=== PATIENT | male | born 1935 | race Caucasian/White ===

== ENCOUNTER 2018-04-19 08:12 | Inpatient (IN) | payer OTHER ==
--- OUTSIDE RECORDS SUMMARY | 2018-04-19 08:14 | XMS REPORT | Clinical Summary ---
:1935 Author Organization [facility] Address [address] [place] [address] Care Team Providers Name Role Phone Asked, No Pcp Primary Care Provider Unavailable Allergies No Known Allergies Current Medications Prescription Sig. Disp. Refills Start Date End Date Status omeprazole (PriLOSEC) 40 Take 40 mg by Active MG capsule mouth 2 (two) times a day. ranitidine (ZANTAC) 150 MG Take 150 mg by Active tablet mouth 2 (two) times a day. levothyroxine (SYNTHROID, Take 125 mcg by Active LEVOXYL) 125 mcg tablet mouth every morning. travoprost (TRAVATAN-Z) 1 drop nightly. Active 0.004 % mirtazapine (REMERON) 15 Take 15 mg by Active MG tablet mouth nightly. Active Problems Problem Noted Date Status post gastric bypass surgery 11/13/2016 Status post gastric bypass revision surgery 11/13/2016 GERD (gastroesophageal reflux disease) 11/13/2016 Pharyngoesophageal dysphagia 11/13/2016 Status post laparoscopic fundoplication 11/13/2016 Family History Medical History Relation Name Comments GI problems Father No Known Problems Maternal Grandfather No Known Problems Maternal Grandmother Breast cancer Mother No Known Problems Paternal Grandfather No Known Problems Paternal Grandmother COPD Sister Relation Name Status Comments Father Maternal Grandfather Maternal Grandmother Mother Paternal Grandfather Paternal Grandmother Sister Alive Sister Son Alive Social History Tobacco Use Types Packs/Day Years Used Date Former Smoker 0.33 7 Alcohol Use Drinks/Week oz/Week Comments No Sex Assigned at Date Recorded Not on file Last Filed Vital Signs Not on file Plan of Treatment Health Maintenance Due Date Last Done Comments SHINGRIX VACCINE (#1) 1983 ZOSTER VACCINE 1993 PNEUMOCOCCAL POLYSACCHARIDE VACCINE AGE 65 AND OVER 1998 PNEUMOCOCCAL-13 1998 INFLUENZA VACCINE 01/28/2018 Results Not on fileafter 04/18/2017 Insurance Payer Benefit Plan / Group Subscriber ID Type Phone Address MEDICARE MEDICARE PART A AND B xxxxxxxxxx Medicare [place], [place] AETNA AETNA PPO OPEN CHOICE xxxxxxxxx PPO
[2018-04-19] MEDS ORDERED: ACETAMINOPHEN 500 MG TAB ONE (08:37)
[2018-04-19] MEDS ORDERED: METOCLOPRAMIDE 10 MG/2mL INJ ONE (08:37)
[2018-04-19] MEDS ORDERED: NA CHLORIDE 0.9% 1,000 ML ONE (08:38)
[2018-04-19 08:42] LABS: Absolute Lymphocytes (CBC) 0.4 K/uL (0.7-4.9); Absolute Monocytes 0.6 K/uL (0.1-1.3); Absolute Neutrophil 16.9 K/uL (1.8-8.0); Basophils % 0.1 % (0-1.3); Eosinophils % 0.1 % (0-4.4); Hematocrit 44.4 % (39.6-49.0); Lymphocytes % 2.3 % (15.3-44.8); MCV 99.2 fL (80-100); MPV 8.2 fL (7.6-11.3); Monocytes % 3.2 % (3.3-12.3); RBC Red Blood Cell Count 4.48 M/uL (4.33-5.43)
[2018-04-19] MEDS ORDERED: CEFTRIAXONE/SWI 1gm 1 GM/10 ML SYR ONE (09:06)
[2018-04-19] MEDS ORDERED: IBUPROFEN 200 MG TAB PO ONE (09:39)
[2018-04-19] MEDS ORDERED: IBUPROFEN 400 MG TAB ONE (09:39)
[2018-04-19 09:48] LABS: Urine Blood NEGATIVE (NEG); Urine Glucose NEGATIVE (NEG); Urine Protein NEGATIVE (NEG); Urine pH >8.5 (5.0-7.0)
[2018-04-19 10:01] LABS: Blood Morphology Comment NOT SEEN (NOT SEEN); Platelet Estimate ADEQ; Urine White Blood Cell Casts OK
--- NOTE | 2018-04-19 10:38 | EDPHYS ---
Physician Documentation [facility] Name: Abhay Morocho Age: 82 yrs Sex: Male : 1935 Arrival Date: 04/19/2018 Time: 08:16 Bed 19 Private MD: ED Physician Cody Loya HPI: 04/19 08:29 This 82 yrs old Male presents to ER via EMS with complaints of generalized kdr body aches and vomiting. 08:29 The patient states that he awoke about 5:30 this morning and was feel pain all over and kdr then vomited five time. He presently feels pain all over and is unable to localize. He states that his mouth feels dry and has no other c/o. He has not had this before and had no other prodromal issues. His only other c/o is sinus drainage and non-productive cough. Onset: The symptoms/episode began/occurred suddenly, just prior to arrival, this morning, at 05:30. Severity of symptoms: At their worst the symptoms were moderate in the emergency department the symptoms are unchanged. The patient has not experienced similar symptoms in the past. The patient has not recently seen a physician. Historical: - Allergies: 08:30 unknown nausea medication "starts with Z" causes severe constipation; ss - Home Meds: 14:57 Prilosec Oral [Active]; levothyroxine oral [Active]; em 14:58 Zantac Oral [Active]; em - PMHx: 08:22 GERD; Thyroid problem; em - PSHx: 08:22 Gastric Bypass; back surgery; em - Immunization history:: Pneumococcal vaccine is not up to date. - Social history:: Smoking status: Patient/guardian denies using tobacco. - Ebola Screening: : Patient negative for fever greater than or equal to 101.5 degrees Fahrenheit, and additional compatible Ebola Virus Disease symptoms Patient denies exposure to infectious person Patient denies travel to an Ebola-affected area in the 21 days before illness onset No symptoms or risks identified at this time. ROS: 08:29 Constitutional: Negative for chills, and weight loss - has had subjective fever [employer]ER. kdr He has otherwise had generalized body aches. Eyes: Negative for injury, pain, redness, and discharge, Neck: Negative for injury, pain, and swelling, Cardiovascular: Negative for chest pain, palpitations, and edema, Abdomen/GI: Negative for abdominal pain, nausea, vomiting, diarrhea, and constipation, Back: Negative for injury and pain, : Negative for injury, bleeding, discharge, and swelling, MS/Extremity: Negative for injury and deformity, Skin: Negative for injury, rash, and discoloration, Neuro: Negative for headache, weakness, numbness, tingling, and seizure activity. Psych: Negative for depression, anxiety, suicide ideation, homicidal ideation, and hallucinations, Allergy/Immunology: Negative for hives, rash, and allergies, Endocrine: Negative for neck swelling, polydipsia, polyuria, polyphagia, and marked weight changes, Hematologic/Lymphatic: Negative for swollen nodes, abnormal bleeding, and unusual bruising. 08:29 Respiratory: Positive for cough, with no reported sputum, Negative for dyspnea on exertion, hemoptysis, orthopnea, pleurisy, shortness of breath, sputum production, wheezing. Exam: 08:29 Constitutional: This is a well developed, well nourished patient who is awake, alert, kdr and in mild distress. Head/Face: Normocephalic, atraumatic. Eyes: Pupils equal round and reactive to light, extra-ocular motions intact. Lids and lashes normal. Conjunctiva and sclera are non-icteric and not injected. Cornea within normal limits. Periorbital areas with no swelling, redness, or edema. ENT: Nares patent. No nasal discharge, no septal abnormalities noted. Tympanic membranes are normal and external auditory canals are clear. Oropharynx with no redness, swelling, or masses, exudates, or evidence of obstruction, uvula midline. Mucous membranes moist. Neck: Trachea midline, no thyromegaly or masses palpated, and no cervical lymphadenopathy. Supple, full range of motion without nuchal rigidity, or vertebral point tenderness. No Meningismus. Chest/axilla: Normal chest wall appearance and motion. Nontender with no deformity. No lesions are appreciated. Vital Signs: 08:22 BP 132 / 68; Pulse 105; Resp 19; Temp 102(O); Pulse Ox 99% on R/A; Weight 67.13 kg; em Height 5 ft. 9 in. (175.26 cm); Pain 7/10; 09:14 BP 131 / 67; Pulse 101; Resp 20; Temp 99.4(O); Pulse Ox 99% on R/A; em 10:00 BP 112 / 62; Pulse 96; Resp 18; Pulse Ox 97% on R/A; em 11:04 BP 111 / 63; Pulse 88; Resp 16; Pulse Ox 97% on R/A; Pain 2/10; em 12:00 BP 99 / 47; Pulse 100; Resp 23; Pulse Ox 97% on R/A; dh3 12:59 Temp 98.0(O); dh3 13:00 BP 102 / 57; Pulse 91; Resp 27; Pulse Ox 99% on R/A; dh3 14:00 BP 99 / 59; Pulse 91; Resp 24; Pulse Ox 100% on R/A; em 14:53 BP 101 / 57; Pulse 83; Resp 20; Pulse Ox 100% on R/A; Pain 0/10; em 08:22 Body Mass Index 21.86 (67.13 kg, 175.26 cm) em MDM: 10:37 Patient medically screened. kdr 11:15 Data reviewed: vital signs, nurses notes, lab test result(s), radiologic studies. kdr Counseling: I had a detailed discussion with the patient and/or guardian regarding: the historical points, exam findings, and any diagnostic results supporting the discharge/admit diagnosis, lab results, radiology results. 04/19 08:27 Order name: CBC with Diff; Complete Time: 10:17 kdr 04/19 08:27 Order name: Chem 7; Complete Time: 08:57 kdr 04/19 08:27 Order name: Urine Culture kdr 04/19 08:27 Order name: Blood Culture Adult (2) kdr 04/19 08:27 Order name: Procalcitonin; Complete Time: 09:17 kdr 04/19 08:27 Order name: Lactate; Complete Time: 09:17 kdr 04/19 08:29 Order name: Flu; Complete Time: 09:17 kdr 04/19 08:56 Order name: CBC Smear Scan; Complete Time: 10:17 EDMS 04/19 09:33 Order name: Urine Dipstick--Ancillary (enter results); Complete Time: 10:17 bd 04/19 11:18 Order name: CBC with Automated Diff EDMS 04/19 11:18 Order name: CBC with Automated Diff EDMS 04/19 11:18 Order name: CBC with Automated Diff EDMS 04/19 11:18 Order name: CBC with Automated Diff EDMS 04/19 11:18 Order name: Comprehensive Metabolic Panel EDMI 04/19 08:27 Order name: Urine Dipstick-Ancillary (obtain specimen); Complete Time: 09:17 kdr 04/19 08:27 Order name: CXR XRAY; Complete Time: 11:13 kdr 04/19 11:18 Order name: Heart Healthy EDMI 04/19 11:18 Order name: Comprehensive Metabolic Panel EDMI 04/19 11:18 Order name: Comprehensive Metabolic Panel EDMI 04/19 11:18 Order name: Comprehensive Metabolic Panel EDMI 04/19 11:18 Order name: Sputum Culture EDMS Administered Medications: 08:36 Drug: NS 0.9% 500 ml Route: IV; Rate: bolus; Site: left forearm; em 13:00 Follow up: IV Status: Completed infusion; IV Intake: 1000ml em 08:37 Drug: Tylenol 1000 mg Route: PO; em 09:13 Follow up: Response: No adverse reaction; Temperature is decreased em 09:16 Drug: Rocephin - (cefTRIAXone) 1 grams Route: IVPB; Infused Over: 30 mins; Site: left ss forearm; 09:30 Follow up: Response: No adverse reaction; IV Status: Completed infusion; IV Intake: 10mlem 09:35 Drug: Ibuprofen 600 mg Route: PO; em 10:53 Follow up: Response: No adverse reaction; Pain is decreased em 11:00 Not Given (Patient Refused): Reglan 10 mg IVP once; over 1 to 2 minutes ss Disposition: 04/19/18 10:37 Hospitalization ordered by Nuno Dao for Observation. Preliminary diagnosis is Pneumonia, unspecified organism. - Bed requested for Telemetry/MedSurg (observation). - Status is Observation. em - Condition is Fair. - Problem is new. - Symptoms have improved. UTI on Admission? No Signatures: Dispatcher [employer] EDMS Stephanie Moser bd Cody Loya MD MD [facility] [employer] em Lauren Finn, RN RN ss Corrections: (The following items were deleted from the chart) 14:34 10:37 Hospitalization Ordered by Nuno Dao MD for Observation. Preliminary diagnosis bd is Pneumonia, unspecified organism. Bed requested for Telemetry/MedSurg (observation). Status is Observation. Condition is Fair. Problem is new. Symptoms have improved. UTI on Admission? No. kdr 15:17 14:34 04/19/2018 10:37 Hospitalization Ordered by Nuno Dao MD for Observation. em Preliminary diagnosis is Pneumonia, unspecified organism. Bed requested for Telemetry/MedSurg (observation). Status is Observation. Condition is Fair. Problem is new. Symptoms have improved. UTI on Admission? No. bd
--- NOTE | 2018-04-19 10:38 | ER ---
Nurse's Notes [facility] Name: Abhay Morocho Age: 82 yrs Sex: Male : 1935 Arrival Date: 04/19/2018 Time: 08:16 Bed 19 Private MD: Diagnosis: Pneumonia, unspecified organism Presentation: 04/19 08:18 Presenting complaint: EMS states: called out for nausea/vomiting/body aches since 0500, em had 101.4 temp on arrival, denies chest pain, shortness of breath. Transition of care: patient was not received from another setting of care. Onset of symptoms was April 19, 2018. Risk Assessment: Do you want to hurt yourself or someone else? Patient reports no desire to harm self or others. Initial Sepsis Screen: Does the patient meet any 2 criteria? Temp <36.0*C (96.8*F)) or > 38.3*C (100.9*F). Does the patient have a suspected source of infection? No. Patient's initial sepsis screen is negative. Care prior to arrival: None. 08:18 Method Of Arrival: EMS: [facility] em 08:18 Acuity: ALMAS 3 ss Triage Assessment: 08:22 General: Appears in no apparent distress. comfortable, Behavior is calm, cooperative, em Reports fever for. Pain: Complains of pain in "all over". Historical: - Allergies: 08:30 unknown nausea medication "starts with Z" causes severe constipation; ss - Home Meds: 14:57 Prilosec Oral [Active]; levothyroxine oral [Active]; em 14:58 Zantac Oral [Active]; em - PMHx: 08:22 GERD; Thyroid problem; em - PSHx: 08:22 Gastric Bypass; back surgery; em - Immunization history:: Pneumococcal vaccine is not up to date. - Social history:: Smoking status: Patient/guardian denies using tobacco. - Ebola Screening: : Patient negative for fever greater than or equal to 101.5 degrees Fahrenheit, and additional compatible Ebola Virus Disease symptoms Patient denies exposure to infectious person Patient denies travel to an Ebola-affected area in the 21 days before illness onset No symptoms or risks identified at this time. Screenin:24 Abuse screen: Denies threats or abuse. Nutritional screening: No deficits noted. em Tuberculosis screening: No symptoms or risk factors identified. Fall Risk None identified. Assessment: 08:22 General: Appears in no apparent distress. comfortable, Behavior is calm, cooperative, em Reports fever for feeling ill for. Pain: Complains of pain in "all over, body aches" Pain currently is 7 out of 10 on a pain scale. Neuro: Level of Consciousness is awake, alert, obeys commands, Oriented to person, place, time, situation. Cardiovascular: Denies chest pain, shortness of breath, Heart tones S1 S2 present Capillary refill < 3 seconds Patient's skin is warm and dry. Respiratory: Airway is patent Respiratory effort is even, unlabored, Respiratory pattern is regular, symmetrical, Breath sounds are clear bilaterally. Denies cough, shortness of breath. GI: Abdomen is flat, Bowel sounds present X 4 quads. Abd is soft and non tender X 4 quads. Reports nausea, vomiting. : No signs and/or symptoms were reported regarding the genitourinary system. EENT: No signs and/or symptoms were reported regarding the EENT system. Derm: Skin is intact, is thin, Skin is pink, warm \\T\\ dry. Musculoskeletal: Capillary refill < 3 seconds, Range of motion: intact in all extremities. 08:30 General: The previous assessment is accurate, call light remains within reach. . ss 08:37 Reassessment: pt currently refuses nausea medication, states it will make him em constipated, provider notified, will hold medication. 09:30 Reassessment: Patient appears in no apparent distress at this time. Patient and/or em family updated on plan of care and expected duration. Pain level reassessed. Patient is alert, oriented x 3, equal unlabored respirations, skin warm/dry/pink. reports mild headache that comes and goes, provider notified, new medications ordered. 10:44 Reassessment: Patient appears in no apparent distress at this time. Patient and/or em family updated on plan of care and expected duration. Pain level reassessed. Patient is alert, oriented x 3, equal unlabored respirations, skin warm/dry/pink. Patient states feeling better. Patient states symptoms have improved. 11:30 Reassessment: Patient and/or family updated on plan of care and expected duration. Pain em level reassessed. Patient is alert, oriented x 3, equal unlabored respirations, skin warm/dry/pink. lunch tray given, pt tolerated well. 12:30 Reassessment: Patient appears in no apparent distress at this time. Patient and/or em family updated on plan of care and expected duration. Pain level reassessed. Patient is alert, oriented x 3, equal unlabored respirations, skin warm/dry/pink. 13:45 Reassessment: Patient appears in no apparent distress at this time. Patient and/or em family updated on plan of care and expected duration. Pain level reassessed. Patient is alert, oriented x 3, equal unlabored respirations, skin warm/dry/pink. pending room assignment Patient states feeling better. Patient states symptoms have improved. 14:48 Reassessment: Patient appears in no apparent distress at this time. Patient and/or em family updated on plan of care and expected duration. Pain level reassessed. Patient is alert, oriented x 3, equal unlabored respirations, skin warm/dry/pink. Patient denies pain at this time. Patient states feeling better. Patient states symptoms have improved. Vital Signs: 08:22 BP 132 / 68; Pulse 105; Resp 19; Temp 102(O); Pulse Ox 99% on R/A; Weight 67.13 kg; em Height 5 ft. 9 in. (175.26 cm); Pain 7/10; 09:14 BP 131 / 67; Pulse 101; Resp 20; Temp 99.4(O); Pulse Ox 99% on R/A; em 10:00 BP 112 / 62; Pulse 96; Resp 18; Pulse Ox 97% on R/A; em 11:04 BP 111 / 63; Pulse 88; Resp 16; Pulse Ox 97% on R/A; Pain 2/10; em 12:00 BP 99 / 47; Pulse 100; Resp 23; Pulse Ox 97% on R/A; dh3 12:59 Temp 98.0(O); dh3 13:00 BP 102 / 57; Pulse 91; Resp 27; Pulse Ox 99% on R/A; dh3 14:00 BP 99 / 59; Pulse 91; Resp 24; Pulse Ox 100% on R/A; em 14:53 BP 101 / 57; Pulse 83; Resp 20; Pulse Ox 100% on R/A; Pain 0/10; em 08:22 Body Mass Index 21.86 (67.13 kg, 175.26 cm) em ED Course: 08:16 Patient arrived in ED. rb1 08:16 Ck [facility] is Primary Nurse. em 08:16 Cody Loya MD is Attending Physician. kdr 08:22 Arm band placed on. em 08:24 Placed in gown. Bed in low position. Call light in reach. em 08:24 No provider procedures requiring assistance completed. Inserted saline lock: 22 gauge em in left forearm, using aseptic technique. Blood collected. 08:35 Triage completed. ss 08:44 X-ray completed. Portable x-ray completed in exam room. Patient tolerated procedure tm4 well. 08:45 CXR XRAY In Process Unspecified. EDMS 10:36 Nuno Dao MD is Hospitalizing Provider. kdr 15:14 Patient admitted, IV remains in place. em Administered Medications: 08:36 Drug: NS 0.9% 500 ml Route: IV; Rate: bolus; Site: left forearm; em 13:00 Follow up: IV Status: Completed infusion; IV Intake: 1000ml em 08:37 Drug: Tylenol 1000 mg Route: PO; em 09:13 Follow up: Response: No adverse reaction; Temperature is decreased em 09:16 Drug: Rocephin - (cefTRIAXone) 1 grams Route: IVPB; Infused Over: 30 mins; Site: left ss forearm; 09:30 Follow up: Response: No adverse reaction; IV Status: Completed infusion; IV Intake: 10mlem 09:35 Drug: Ibuprofen 600 mg Route: PO; em 10:53 Follow up: Response: No adverse reaction; Pain is decreased em 11:00 Not Given (Patient Refused): Reglan 10 mg IVP once; over 1 to 2 minutes ss Intake: 09:30 IV: 10ml; Total: 10ml. em 13:00 IV: 1000ml; Total: 1010ml. em Outcome: 10:37 Decision to Hospitalize by Provider. kdr 15:14 Admitted to Tele accompanied by tech, via wheelchair, room 429, with chart, Report em called to HIMANSHU Goodman 15:14 Condition: good 15:14 Instructed on the need for admit, Demonstrated understanding of instructions. 15:17 Patient left the ED. em Signatures: Dispatcher [employer] EDMS Cody Loya MD MD kdr Renetta Obregon tm4 Ck [employer] em Lauren Finn, RN RN ss Natasha Hernandez, RN RN rb1 Radha Lam 3
--- NOTE | 2018-04-19 10:51 | RAD REPORT ---
EXAM DESCRIPTION: RAD - Chest Single View - 04/19/2018 8:45 am CLINICAL HISTORY: Cough, fever COMPARISON: December 2014 TECHNIQUE: AP portable chest image was obtained 0838 hours . FINDINGS: No dense consolidation. However, there is patchy right upper lobe opacification suspicious for an early pneumonia. Mild prominence of the bilateral lower lung markings as well from interstiti al edema or infiltrate. Heart and vasculature are normal. No measurable pleural effusion and no pneum othorax. No acute bony abnormality seen. No acute aortic findings suspected. IMPRESSION: Suspected patchy or early right upper lobe pneumonia. Mild interstitial edema or infiltrate pattern in each lung base.
[2018-04-19] MEDS ORDERED: ACETAMINOPHEN 500 MG TAB PO PRN (11:12)
[2018-04-19] MEDS ORDERED: ONDANSETRON 4 MG/2 ML VIAL IV PRN (11:12)
[2018-04-19] MEDS: AZITHROMYCIN IV 500 MG in NA CHLORIDE 0.9% 250 ML IVPB SCH (13:00)
[2018-04-19] MEDS: ENOXAPARIN 40 MG/0.4 ML SQ SCH (16:12)
[2018-04-19] MEDS: NA CHLORIDE 0.9% 1,000 ML IV SCH (16:14)
[2018-04-19] MEDS: CEFTRIAXONE/SWI 1gm 1 GM/10 ML SYR IVP SCH (20:28)
[2018-04-19] MEDS ORDERED: CEFTRIAXONE 1 GM/NS 50 ML 50 ML IV SCH (21:00)
[2018-04-19] MEDS ORDERED: RANITIDINE 150 MG TABLET ONE ×2 (22:33→22:58)
[2018-04-19] MEDS: PANTOPRAZOLE 40MG TABLET PO SCH (22:39)
[2018-04-19] MEDS ORDERED: FAMOTIDINE 20 MG TAB PO SCH (23:00)
--- NOTE | 2018-04-19 23:48 | HP ---
Date of Admission: 04/19/2018 Chief Complaint: Shortness of breath, nausea, vomiting, dehydration. Code Status: Full code. No medical power of corporate attorney or living will. Primary Care Physician: Davi Hdez MD History Of Present Illness: The patient is an 82-year-old male with past medical history of gastric bypass surgery, gastroesophageal reflux disease, and hypothyroidism, who was in his usual state of he alth until the day of admission when the patient had pain all over and had some nausea and vomiting. The patient had some shortness of breath and cough, which was nonproductive. The patient's symptoms are constant, moderate, progressively worsening. The patient therefore came into the ER for further evaluation. He denies any fevers or chills. No chest pain. The patient's vital signs upon arrival did show temperature of 102, heart rate was elevated at 105. His lab workup showed negative lactate and procalcitonin level; however, WBC count was elevated at 17,000 with left shift. Chest x-ray dee wed patchy early right lobe pneumonia and edema or infiltrate pattern in each lung base. The patient was then referred for admission. When seen in the ER, he was awake, alert, and oriented x3. Some m ild distress. Past Medical History: Hypothyroidism and gastroesophageal reflux disease. Surgical History: Gastric bypass and revision, total of 4 surgeries and back surgery. Allergies: NO KNOWN DRUG ALLERGIES. Medications: List reviewed. The patient takes Prilosec, Zantac, and levothyroxine. Social History: The patient denies any tobacco use, alcohol use, or illicit drug use. The patient l mary jo by himself. Independent in his activities of daily living. Does not use any assistive ambulato ry devices. Family History: The patient denies any family history of hypertension or diabetes. Review of Systems: An 11-point system reviewed and negative except as per HPI. Physical Examination: Vital Signs: Temperature 102, heart rate 105, blood pressure 132/68, respirations 19, O2 99% on room air. General: Awake, alert, oriented x3. Some mild distress, ill-appearing, elderly male. HEENT: Normocephalic, atraumatic. PERRLA. EOMI. Dry mucous membranes. Oropharynx is clear. Norm al dentition. Conjunctivae anicteric. Neck: Supple. No JVD. Trachea midline. CV: S1, S2. Sinus tachycardia. Peripheral pulses present. No murmurs. Respiratory: Diminished breath sounds at the bases. No wheezing or stridor. No use of accessory mu scles. Gastrointestinal: Abdomen is soft, nontender, nondistended. Positive bowel sounds. No guarding or rigidity. Extremities: No clubbing, cyanosis, or edema. No calf tenderness. Neuro: Cranial nerves 2 through 12 intact grossly. No focal neurological deficit. Speech is normal . Strength is 5/5 bilateral upper and lower extremities. Sensation intact to light touch. Skin: No rashes. Normal skin turgor. Psych: Mood is okay. Affect is full. Insight and judgment are good. Laboratory Data: WBC 17.9, H and H 15.2 and 44.4, platelets 219, neutrophils 94%. Sodium 140, potas sium 4, chloride 106, CO2 26, BUN 14, creatinine 1.1, glucose 139, lactate 1.6, calcium 8.8. Procalc itonin less than 0.05. UA is negative. Blood cultures pending. Flu screen is negative. Chest x-ra y shows suspected patchy or early right upper lobe pneumonia. Mild interstitial edema or infiltrate pattern in each lung base. Assessment And Plan: An 82-year-old male with. 1.Right-sided pneumonia, upper lobe, may be secondary to aspiration or gram-negative bacteria. We w ill start on IV antibiotics. We will add anaerobic coverage. We will have Speech Therapy evaluation to rule out any aspiration. No overt signs as for now. 2.Hypothyroidism, on replacement therapy. 3.Status post gastric bypass. 4.Gastroesophageal reflux disease, on proton pump inhibitors. 5.Chronic back pain, status post surgery. 6.Gastrointestinal and deep vein thrombosis prophylaxis with proton pump inhibitors and Lovenox. Plan: 1.Admit the patient to Med-Surg, place as in inpatient. We will continue with IV antibiotics. Foll ow up with speech therapy evaluation. 2.Acute dehydration. Continue with IV fluids. 3.Follow up on blood cultures and sputum cultures. Likely discharge in the next 24 to 48 hours if c ontinues to improve. /VENECIA Voice ID: [id number]
[2018-04-20] MEDS: NA CHLORIDE 0.9% 1,000 ML IV SCH ×2 (01:20→06:12)
[2018-04-20 04:42] LABS: Absolute Lymphocytes (CBC) 1.1 K/uL (0.7-4.9); Basophils % 0.9 % (0-1.3); Eosinophils % 0.6 % (0-4.4); Hematocrit 37.8 % (39.6-49.0); MCH 34.3 pg (27.0-35.0); MCV 101.2 fL (80-100); MPV 8.5 fL (7.6-11.3); Monocytes % 5.3 % (3.3-12.3); RBC Red Blood Cell Count 3.73 M/uL (4.33-5.43)
[2018-04-20 05:03] LABS: Albumin 2.6 g/dL (3.4-5.0); Bilirubin Total 0.6 mg/dL (0.2-1.0); Potassium 4.2 mmol/L (3.5-5.1); Protein, Total 5.8 g/dL (6.4-8.2)
[2018-04-20] MEDS: LEVOTHYROXINE SOD 0.125 MG TAB PO SCH (06:12)
[2018-04-20 07:56] LABS: Magnesium 2.1 mg/dL (1.8-2.4)
[2018-04-20] MEDS ORDERED: INFLUENZA VACCINE (for 3y+) 0.5 ML DOSE IMVAC ONE (08:00)
[2018-04-20] MEDS: AZITHROMYCIN IV 500 MG in NA CHLORIDE 0.9% 250 ML IVPB SCH (09:00)
[2018-04-20] MEDS: PANTOPRAZOLE 40MG TABLET PO SCH (09:43)
[2018-04-20] MEDS: CEFTRIAXONE/SWI 1gm 1 GM/10 ML SYR IVP SCH (09:43)
[2018-04-20] MEDS: ENOXAPARIN 40 MG/0.4 ML SQ SCH (09:43)
--- NOTE | 2018-04-20 11:06 | RAD REPORT ---
EXAM DESCRIPTION: RAD - Chest Pa And Lat (2 Views) - 04/20/2018 10:57 am CLINICAL HISTORY: Pneumonia COMPARISON: April 19 TECHNIQUE: PA and lateral views of the chest were obtained. FINDINGS: The lungs are fibrotic as a baseline. Right upper lobe opacification is still present and is slightly larger and more defined than seen on the prior day AP projection. No other focal lung par enchymal process. Heart size is normal and central vasculature is within normal limits. No pleural effusion or pneumothorax seen. No acute bony finding noted. No aortic abnormality. IMPRESSION: Presumed right upper lobe pneumonia changes have progressed slightly from April 19 juliette ging. No significant failure or volume overload. Continued follow-up is needed to assure complete clearing to exclude mass lesion.
--- NOTE | 2018-04-20 13:19 | PN ---
Date of Progress Note: 04/20/2018 Subjective: The patient seen and examined, chart reviewed, and case discussed with RN. The patient is still having a little bit of shortness of breath, overall better. No further nausea or vomiting. Review of Systems: Negative except as above. Medications: List reviewed. Objective: Vital Signs: Temperature 98.4, heart rate 74, blood pressure 135/72, respirations 18, O2 98% on room air. General: Awake, alert, oriented x3. Elderly male, frail, somewhat ill-appearing. CV: S1, S2. Peripheral pulses present. Regular rate and rhythm. Respiratory: Diminished breath sounds on the right. No wheezing or crackles. No use of accessory m uscles. Gastrointestinal: Abdomen is soft, nontender, nondistended. Positive bowel sounds. Extremities: No clubbing, cyanosis, or edema. Neurologic: Nonfocal. Laboratory Data: Sodium 140, potassium 4.2, chloride 110, CO2 25, BUN 12, creatinine 0.9, glucose 93 , calcium 8, albumin is 2.6. WBC 18.4, H and H 12.8 and 37.8, platelets 163, neutrophils 87%. Blood cultures, no growth to date. Urine culture, no growth. Sputum culture, pending. Chest x-ray perso bethany reviewed shows right upper lobe pneumonia changes, progressed slightly from April 19. No s ignificant failure or volume overload. Lungs fibrotic at baseline. Assessment: An 82-year-old male with: 1.Right-sided pneumonia, upper lobe, possibly secondary to aspiration from gastric contents or gram- negative bacteria. We will continue antibiotics. Add anaerobic coverage. Speech Therapy evaluation pending aspiration precautions. 2.Hypothyroidism. Continue replacement therapy. 3.Status post gastric bypass. 4.Gastroesophageal reflux disease without esophagitis. Continue PPI. 5.Chronic back pain, status post surgery. 6.Gastrointestinal and deep venous thrombosis prophylaxis with PPI and Lovenox. 7.Acute dehydration, resolved. We will DC IV fluids. 8.Intractable nausea and vomiting, resolved. Continue antiemetics and the patient is tolerating his diet. Plan: Follow up on cultures and adjust antibiotics. /VENECIA Voice ID: [id number] Report ID: [id number]
[2018-04-20] MEDS: PIPER/TAZO/NS 3.375gm 3.375 GM/100 ML BAG IVPB SCH (17:00)
[2018-04-20] MEDS: RANITIDINE 150 MG TABLET PO SCH (20:45)
[2018-04-21] MEDS: PIPER/TAZO/NS 3.375gm 3.375 GM/100 ML BAG IVPB SCH ×3 (01:04→16:20)
[2018-04-21 04:29] LABS: Absolute Lymphocytes (CBC) 1.2 K/uL (0.7-4.9); Absolute Neutrophil 7.5 K/uL (1.8-8.0); Basophils % 0.1 % (0-1.3); Eosinophils % 1.5 % (0-4.4); Lymphocytes % 11.7 % (15.3-44.8); MCH 33.9 pg (27.0-35.0); MCV 99.5 fL (80-100); MPV 8.5 fL (7.6-11.3); Monocytes % 10.4 % (3.3-12.3); RBC Red Blood Cell Count 3.92 M/uL (4.33-5.43)
[2018-04-21 04:48] LABS: Albumin 2.6 g/dL (3.4-5.0); Bilirubin Total 0.5 mg/dL (0.2-1.0); Protein, Total 6.1 g/dL (6.4-8.2)
[2018-04-21] MEDS: LEVOTHYROXINE SOD 0.125 MG TAB PO SCH (06:30)
[2018-04-21] MEDS: PANTOPRAZOLE 40MG TABLET PO SCH ×2 (08:24→15:41)
[2018-04-21] MEDS: ENOXAPARIN 40 MG/0.4 ML SQ SCH (08:25)
--- NOTE | 2018-04-21 20:16 | P.PN ---
Subjective Date of Service: 04/21/18 Chief Complaint: Shortness of breath Patient seen and examined at bedside. No family at bedside. Case discussed with nursing staff. Patient reports improved shortness of breath. No nausea or vomiting. Toleration diet. Breathing well on room air. Review of Systems 10-point ROS is otherwise unremarkable Physical Examination - Vital Signs Temperature: 97.8 F Blood Pressure: 132/72 Pulse: 69 Respirations: 18 Pulse Ox (%): 97 - Physical Exam General: Alert, In no apparent distress HEENT: Atraumatic, PERRLA, EOMI Neck: Supple, JVD not distended Respiratory: Clear to auscultation bilaterally, Normal air movement Cardiovascular: Regular rate/rhythm, Normal S1 S2 Gastrointestinal: Normal bowel sounds, No tenderness Musculoskeletal: No tenderness Integumentary: No rashes Neurological: Normal speech, Normal tone, Normal affect Lymphatics: No axilla or inguinal lymphadenopathy - Studies Microbiology Data (last 24 hrs): 04/19/18 09:10 Clean Catch Urine [place] Count - Final <10,000 CFU/ML. 04/19/18 09:10 Clean Catch Urine - Final Assessment And Plan - Plan - Right-sided pneumonia, upper lobe, possibly secondary to aspiration from gastric contents or gram-negative bacteria. We will continue antibiotics. Add anaerobic coverage. Speech Therapy evaluation done. Discussed sleeping with more pillows to help reduce risk of aspiration. - Hypothyroidism. Continue replacement therapy. - Status post gastric bypass. - Gastroesophageal reflux disease without esophagitis. Continue PPI. - Chronic back pain, status post surgery. - Gastrointestinal and deep venous thrombosis prophylaxis with PPI and Lovenox. - Acute dehydration, resolved. We will DC IV fluids. - Intractable nausea and vomiting, resolved. Continue antiemetics and the patient is tolerating his diet. Discharge Plan: Home Plan to discharge in: 24 Hours
[2018-04-21] MEDS: RANITIDINE 150 MG TABLET PO SCH (21:22)
[2018-04-22] MEDS: PIPER/TAZO/NS 3.375gm 3.375 GM/100 ML BAG IVPB SCH ×2 (01:23→09:03)
[2018-04-22 04:39] LABS: Absolute Lymphocytes (CBC) 1.1 K/uL (0.7-4.9); Absolute Monocytes 0.9 K/uL (0.1-1.3); Absolute Neutrophil 7.1 K/uL (1.8-8.0); Basophils % 0.1 % (0-1.3); Eosinophils % 1.9 % (0-4.4); Hematocrit 40.3 % (39.6-49.0); Lymphocytes % 12.2 % (15.3-44.8); MCH 34.3 pg (27.0-35.0); MCV 99.4 fL (80-100); MPV 8.1 fL (7.6-11.3); Monocytes % 9.1 % (3.3-12.3); RBC Red Blood Cell Count 4.05 M/uL (4.33-5.43)
[2018-04-22 05:14] LABS: Albumin 2.6 g/dL (3.4-5.0); Bilirubin Total 0.6 mg/dL (0.2-1.0); Potassium 3.8 mmol/L (3.5-5.1); Protein, Total 6.3 g/dL (6.4-8.2)
[2018-04-22] MEDS: LEVOTHYROXINE SOD 0.125 MG TAB PO SCH (06:26)
[2018-04-22] MEDS ORDERED: POTASSIUM 25 MEQ EFFERV TAB PO ONE (07:30)
[2018-04-22] MEDS: PANTOPRAZOLE 40MG TABLET PO SCH (09:03)
[2018-04-22] MEDS: ENOXAPARIN 40 MG/0.4 ML SQ SCH (09:03)
--- NOTE | 2018-04-22 10:35 | RAD REPORT ---
EXAM DESCRIPTION: [place] Single View04/22/2018 10:28 am CLINICAL HISTORY: Chest pain COMPARISON: April 20, 2018 FINDINGS: Right upper lobe opacity appears mildly diminished in size. No other change is noted. IMPRESSION: Right upper lobe opacity appears mildly diminished in size presumably representing impro ving pneumonia. This should be followed until it is clear to help exclude an underlying mass/postobst ructive process
--- NOTE | 2018-04-22 12:42 | P.DS ---
Admission Date: 04/19/18 Discharge Date: 04/22/18 Disposition: ROUTINE DISCHARGE Discharge Condition: GOOD Reason for Admission: Shortness of breath - Problems (1) Hypothyroid Current Visit: Yes Status: Acute (2) GERD (gastroesophageal reflux disease) Current Visit: Yes Status: Acute (3) Chronic back pain Current Visit: Yes Status: Acute (4) Pneumonia Onset Date: 04/21/18 Current Visit: Yes Status: Acute Brief History of Present Illness: The patient is an 82-year-old male with past medical history of gastric bypass surgery, gastroesophageal reflux disease, and hypothyroidism, who was in his usual state of health until the day of admission when the patient had pain all over and had some nausea and vomiting. The patient had some shortness of breath and cough, which was nonproductive. The patient's symptoms are constant , moderate, progressively worsening. The patient therefore came into the ER for further evaluation. He denies any fevers or chills. No chest pain. The patient's vital signs upon arrival did show temperature of 102, heart rate was elevated at 105. His lab workup showed negative lactate and procalcitonin level ; however, WBC count was elevated at 17,000 with left shift. Chest x-ray showed patchy early right lobe pneumonia and edema or infiltrate pattern in each lung base. The patient was then referred for admission. When seen in the ER, he was awake, alert, and oriented x3. Some mild distress. Hospital Course: Patient was admitted for right-sided pneumonia, fungal. This may have been secondary to aspiration or gram-negative bacteria. Chest x-ray was positive for possible pneumonia, which was clearing up on repeat chest x-ray. The imaging recommended that they follow up with chest x-ray and ordered to rule out any underlying mass/lesion. He was started on IV antibiotics and speech therapy evaluation was done to rule out any aspiration. He was started on IV fluids, blood cultures and sputum cultures were sent. Cultures were negative at 24 hr stay. Aspiration risk reduction was discussed with patient. He remained stable for all his other chronic issues including hypothyroidism, GERD, chronic back pain and his gastric bypass history. At the time of discharge, patient was breathing well on room air, had no complaints of chest pain, abdominal pain, nausea and vomiting. He was tolerating a regular diet without any concerns. She was discharged home on oral Levaquin 500 mg 2 x 7 days and with instructions to follow up with his primary care physician for a repeat chest x-ray to evaluate for any underlying mass/lesion after pneumonia had cleared up. Vital Signs/Physical Exam: Temp Pulse Resp BP Pulse Ox 97.7 F 73 18 118/68 94 04/22/18 12:00 04/22/18 12:00 04/22/18 12:00 04/22/18 12:00 04/22/18 12:00 General: Alert, In no apparent distress HEENT: Atraumatic, PERRLA, EOMI Neck: Supple, JVD not distended Respiratory: Clear to auscultation bilaterally, Normal air movement Cardiovascular: Regular rate/rhythm, Normal S1 S2 Gastrointestinal: Normal bowel sounds, No tenderness Musculoskeletal: No tenderness Integumentary: No rashes Neurological: Normal speech, Normal tone, Normal affect Laboratory Data at Discharge: WBC 9.3 K/uL (4.3-10.9) 04/22/18 04:03 Hgb 13.9 g/dL (13.6-17.9) 04/22/18 04:03 Hct 40.3 % (39.6-49.0) 04/22/18 04:03 Plt Count 199 K/uL (152-406) 04/22/18 04:03 Sodium 141 mmol/L (136-145) 04/22/18 04:03 Potassium 3.8 mmol/L (3.5-5.1) 04/22/18 04:03 BUN 10 mg/dL (7-18) 04/22/18 04:03 Creatinine 1.10 mg/dL (0.55-1.3) 04/22/18 04:03 Glucose 91 mg/dL (74-106) 04/22/18 04:03 Magnesium 2.1 mg/dL (1.8-2.4) 04/20/18 04:05 Total Bilirubin 0.6 mg/dL (0.2-1.0) 04/22/18 04:03 AST 13 U/L (15-37) L 04/22/18 04:03 ALT 15 U/L (12-78) 04/22/18 04:03 Alkaline Phosphatase 66 U/L (45-117) 04/22/18 04:03 Home Medications: Levothyroxine Sodium [Synthroid] 125 mcg PO DAILY 04/19/18 Omeprazole [Prilosec] 40 mg PO BID 04/19/18 Ranitidine HCl [Zantac] 300 mg PO BEDTIME 04/19/18 levoFLOXacin [Levaquin] 500 mg PO DAILY #7 tab 04/22/18 New Medications: levoFLOXacin [Levaquin] 500 mg PO DAILY #7 tab Patient Discharge Instructions: Please follow up with the primary care physician in 1 week for repeat chest x-ray to follow up the pneumonia (your lung infection). Diet: Regular Activity: Ad angella Followup: Davi Hdez MD [ACTIVE - CAN ADMIT] - Time spent managing pt's care (in minutes): 55
== END 2018-04-22 13:51 | disposition home or self-care (01) | DRG 195 ==
LOC: ER 08:12 → ERHOLD 13:46 → 4TH 15:04
PROVIDERS: ADMIT Family Medicine; ATTEND Family Medicine
DX: J18.9 Pneumonia, unspecified organism (principal); E03.9 Hypothyroidism, unspecified; K21.9 Gastro-esophageal reflux disease without esophagitis; G89.29 Other chronic pain; Z98.84 Bariatric surgery status; E86.0 Dehydration; R11.2 Nausea with vomiting, unspecified
CPT/HCPCS: 36415; 71045; 71046; 80048; 80053; 81003; 83605; 83735; 84145; 85025; 87040; 87086; 87088; 87804; 94760; 96361; 96374; 99285; J0456; J0696; J1650; J2543; J2765; J7030

== ENCOUNTER 2019-05-12 08:21 | Emergency (ER) | payer OTHER ==
[2019-05-12] MEDS ORDERED: NA CHLORIDE 0.9% 1,000 ML ONE (08:48)
[2019-05-12] MEDS ORDERED: MECLIZINE HCL 12.5 MG TAB ONE (08:48)
[2019-05-12 09:09] LABS: Absolute Lymphocytes (CBC) 0.8 K/uL (0.7-4.9); Basophils % 0.1 % (0-1.3); Hematocrit 43.3 % (39.6-49.0); Lymphocytes % 12.3 % (15.3-44.8); MPV 8.4 fL (7.6-11.3)
--- NOTE | 2019-05-12 09:11 | EKG ---
Test Date: 2019-05-12 Test Time: 08:41:45 Head Bone Grinder: MADDIE MEASUREMENT RESULTS: Intervals: Rate: 66 NH: 184 QRSD: 92 QT: 394 QTc: 413 [place]: P: 76 NH: 184 QRS: 19 T: 23 INTERPRETIVE STATEMENTS: Normal sinus rhythm Normal ECG Compared to ECG 09/26/2014 10:09:57 No significant changes Electronically Signed On 05-12-19 09:10:27 BLADDER BLOWER by [place]
[2019-05-12 09:25] LABS: ALT/SGPT 20 U/L (12-78); AST/SGOT 14 U/L (15-37); Albumin 3.4 g/dL (3.4-5.0); Alkaline Phosphatase 68 U/L (45-117); BUN Blood Urea Nitrogen 12 mg/dL (7-18); Bicarbonate 31 mmol/L (21-32); Bilirubin Direct 0.2 mg/dL (0-0.2); Bilirubin Total 0.6 mg/dL (0.2-1.0); Glucose Level 117 mg/dL (74-106); Lipase 66 U/L (73-393); Potassium 4.2 mmol/L (3.5-5.1); Protein, Total 7.2 g/dL (6.4-8.2); Sodium Level 140 mmol/L (136-145); Troponin (Emerg Dept Use Only) < 0.02 ng/mL (0.0-0.045)
--- NOTE | 2019-05-12 09:29 | RAD REPORT ---
EXAM DESCRIPTION: CT - Head Brain Wo Cont - 05/12/2019 8:59 am CLINICAL HISTORY: Dizziness, nausea and vomiting COMPARISON: December 2014 TECHNIQUE: Axial 5 mm thick images of the head were obtained without IV contrast. All CT scans are performed using dose optimization technique as appropriate and may include automated exposure control or mA/KV adjustment according to patient size. FINDINGS: No intracranial hemorrhage, mass, edema or shift of mid-line structures. No acute infarcti on changes seen. No cortical edema or sulcal effacement. Moderate severity atrophy and chronic ischem ic changes are present. Ventricles are in proportion to volume loss. Intracranial findings are simila r to the 2015 study. Mastoid air cells and visualized portions of the paranasal sinuses are clear. No acute bony findings. IMPRESSION: Negative non-contrast CT head examination for acute findings. Moderate severity atrophy and chronic ischemic changes are present not substantially different from c omparison. Chronic ischemic changes can mask nonhemorrhagic acute infarction. MR brain followup can be obtained if there is ongoing concern for acute ischemia.
[2019-05-12 09:51] LABS: Folic Acid, (Folate) > 20.0 ng/mL (3.1-17.5)
[2019-05-12 11:20] LABS: Urine Blood NEGATIVE (NEG); Urine Glucose NEGATIVE (NEG); Urine Protein NEGATIVE (NEG); Urine Specific Gravity 1.025 (1.005-1.030)
[2019-05-12 11:22] LABS: Urine Bacteria <20 /HPF (NONE SEEN); Urine Culture Reflex Order NOT NEEDED; Urine RBC <5 /HPF (NONE SEEN)
--- NOTE | 2019-05-12 11:45 | RAD REPORT ---
EXAM DESCRIPTION: MRI - Brain Wo Cont - 05/12/2019 11:19 am CLINICAL HISTORY: Dizziness COMPARISON: April [address] TECHNIQUE: Axial, sagittal, and coronal magnetic images of the brain were obtained. Contrast was not requested FINDINGS: Mild signal is present within periventricular, deep and subcortical white matter bilateral ly Diffusion-weighted/ADC mapping does not reveal evidence of acute infarction. The ventricles are normal caliber. An extra-axial fluid collection is not present Fluid within the sinuses/ mastoids is not seen. IMPRESSION: Mild signal is present within periventricular, deep and subcortical white matter bilater ally probably secondary to ischemic changes secondary to mild small vessel disease
--- NOTE | 2019-05-12 12:16 | ER ---
Nurse's Notes [facility] Name: Abhay Morocho Age: 83 yrs Sex: Male : 1935 Arrival Date: 05/12/2019 Time: 08:24 Bed 18 Private MD: Davi Hdez Diagnosis: Vertigo;Dizziness and giddiness;Dehydration Presentation: 05/12 08:34 Presenting complaint: Patient states: woke up this morning and felt very dizzy, also iw felt nauseous, vomited a couple times. Transition of care: patient was not received from another setting of care. Onset of symptoms was May 12, 2019. Risk Assessment: Do you want to hurt yourself or someone else? Patient reports no desire to harm self or others. Initial Sepsis Screen: Does the patient meet any 2 criteria? No. Patient's initial sepsis screen is negative. Does the patient have a suspected source of infection? No. Patient's initial sepsis screen is negative. Care prior to arrival: None. 08:34 Method Of Arrival: Ambulatory iw 08:34 Acuity: ALMAS 3 iw Triage Assessment: 08:40 General: Appears in no apparent distress. comfortable, Behavior is cooperative, bp appropriate for age, anxious. Pain: Complains of pain in abdomen. EENT: No deficits noted. Neuro: Level of Consciousness is awake, alert, obeys commands, Oriented to person, place, time, situation, Appropriate for age Gait is steady. Cardiovascular: Rhythm is sinus rhythm. Respiratory: No deficits noted. GI: Reports nausea, vomiting. : No signs and/or symptoms were reported regarding the genitourinary system. Derm: No deficits noted. Musculoskeletal: No deficits noted. Historical: - Allergies: 08:35 unknown nausea medication "starts with Z" causes severe constipation; iw - Home Meds: 08:40 levothyroxine oral once daily [Active]; Prilosec Oral once daily [Active]; Zantac Oral iw once daily [Active]; - PMHx: 08:35 GERD; Thyroid problem; iw - PSHx: 08:35 Gastric Bypass; iw - Immunization history:: Adult Immunizations not up to date. - Social history:: Smoking status: . - Ebola Screening: : Patient negative for fever greater than or equal to 101.5 degrees Fahrenheit, and additional compatible Ebola Virus Disease symptoms Patient denies exposure to infectious person Patient denies travel to an Ebola-affected area in the 21 days before illness onset No symptoms or risks identified at this time. - Family history:: not pertinent. - Hospitalizations: : No recent hospitalization is reported. Screenin:45 Abuse screen: Denies threats or abuse. Denies injuries from another. Nutritional bp screening: No deficits noted. Tuberculosis screening: No symptoms or risk factors identified. Fall Risk None identified. Assessment: 08:40 General: SEE TRIAGE NOTE. Pain: Complains of pain in abdomen. Neuro: Reports dizziness. bp GI: Bowel sounds present X 4 quads. Abd is soft X 4 quads. 08:59 Reassessment: PT TO CT. bp 10:00 Reassessment: UOP PENDING, VS STABLE ON MONITOR. bp 10:55 Reassessment: MRI PENDING, NO S/S ACUTE DISTRESS. bp 11:40 Reassessment: PT RETURNED FROM MRI. bp 12:52 Reassessment: PT D/C HOME AMBULATORY WITH FAMILY, DX WITH VERTIGO AND DEHYDRATION. bp Vital Signs: 08:36 BP 170 / 85; Pulse 74; Resp 16 S; Temp 97.2(TE); Pulse Ox 97% on R/A; Weight 64.41 kg; iw Height 5 ft. 9 in. (175.26 cm); Pain 0/10; 09:45 BP 143 / 72; Pulse 60; Resp 16; Pulse Ox 97% ; bp 10:55 BP 152 / 81; Pulse 64; Resp 16; Pulse Ox 97% ; bp 11:40 BP 149 / 76; Pulse 63; Resp 16; Pulse Ox 98% ; bp 12:53 BP 143 / 80; Pulse 62; Resp 16; Temp 97.5; Pulse Ox 98% ; bp 08:36 Body Mass Index 20.97 (64.41 kg, 175.26 cm) iw ED Course: 08:24 Patient arrived in ED. mr 08:24 Davi Hdez MD is Private Physician. mr 08:28 Davi Watkins, RN is Primary Nurse. bp 08:29 Bhavin Norris MD is Attending Physician. rn 08:35 Triage completed. iw 08:45 Patient has correct armband on for positive identification. Bed in low position. Call bp light in reach. Side rails up X2. 08:50 EKG done, by semiconductor processing technician. reviewed by Bhavin Norris MD. at1 08:56 Inserted saline lock: 20 gauge in left antecubital area, using aseptic technique. Blood bp collected. 09:12 CT Head Brain wo Cont In Process Unspecified. EDMS 11:19 Brain Wo Cont MRI In Process Unspecified. EDMS 12:15 Mu Garcia MD is Referral Physician. rn 12:53 No provider procedures requiring assistance completed. IV discontinued, intact, bp bleeding controlled, No redness/swelling at site. Pressure dressing applied. Administered Medications: 08:50 Drug: NS 0.9% 1000 ml Route: IV; Rate: 1000 ml; Site: left antecubital; bp 12:48 Follow up: IV Status: Completed infusion; IV Intake: 1000ml bp 08:50 Drug: Meclizine 50 mg Route: PO; bp 10:54 Follow up: Response: Marked relief of symptoms bp Intake: 12:48 IV: 1000ml; Total: 1000ml. bp Outcome: 12:15 Discharge ordered by MD. rn 12:54 Discharged to home ambulatory, with family. bp 12:54 Condition: stable 12:54 Discharge instructions given to patient, Instructed on discharge instructions, follow up and referral plans. medication usage, Demonstrated understanding of instructions, follow-up care, medications, Prescriptions given X 1. 12:54 Patient left the ED. bp Signatures: Dispatcher [employer] [facility] Cecily Daniel Odalys Macedo, RN RN Bhavin Mckeon MD MD rn Gonzales, Amanda, genetics physician EKG Tat1 Davi Watkins RN RN bp Corrections: (The following items were deleted from the chart) 08:39 08:36 BP 170 / 85; Pulse 74bpm; Resp 16bpm; Spontaneous; Pulse Ox 97% RA; Temp 97.2F iw Temporal; iw
--- NOTE | 2019-05-12 12:16 | EDPHYS ---
Physician Documentation [facility] Name: Abhay Morocho Age: 83 yrs Sex: Male : 1935 Arrival Date: 05/12/2019 Time: 08:24 Bed 18 Private MD: Davi Hdez ED Physician Bhavin Norris HPI: 05/12 08:39 This 83 yrs old Male presents to ER via Ambulatory with complaints of rn Dizziness, Vomiting. 08:39 The patient presents with dizziness, feeling off balance. Onset: The symptoms/episode rn began/occurred this morning. Context: occurred at home, occurred while the patient was getting up from bed, just prior to the episode the patient experienced no apparent symptoms. Modifying factors: The symptoms are alleviated by nothing, the symptoms are aggravated by movement of head, standing up, changing position. Severity of symptoms: At their worst the symptoms were mild in the emergency department the symptoms have improved. The patient has not experienced similar symptoms in the past. Reports got up from bed and felt dizziness, off balance, assoc with 2 episodes of nausea and vomiting, no fever, no head injury, no abd pain/diarrhea. No chest pain/sob/cough. Has never had before. Able to walk from vehicle into ER. Denies focal neuro problem. . Historical: - Allergies: 08:35 unknown nausea medication "starts with Z" causes severe constipation; iw - Home Meds: 08:40 levothyroxine oral once daily [Active]; Prilosec Oral once daily [Active]; Zantac Oral iw once daily [Active]; - PMHx: 08:35 GERD; Thyroid problem; iw - PSHx: 08:35 Gastric Bypass; iw - Immunization history:: Adult Immunizations not up to date. - Social history:: Smoking status: . - Ebola Screening: : Patient negative for fever greater than or equal to 101.5 degrees Fahrenheit, and additional compatible Ebola Virus Disease symptoms Patient denies exposure to infectious person Patient denies travel to an Ebola-affected area in the 21 days before illness onset No symptoms or risks identified at this time. - Family history:: not pertinent. - Hospitalizations: : No recent hospitalization is reported. ROS: 08:41 Constitutional: Negative for fever, chills, and weight loss, Eyes: Negative for injury, rn pain, redness, and discharge, Neck: Negative for injury, pain, and swelling, Cardiovascular: Negative for chest pain, palpitations, and edema, Respiratory: Negative for shortness of breath, cough, wheezing, and pleuritic chest pain, Abdomen/GI: Negative for abdominal pain, diarrhea, and constipation, MS/Extremity: Negative for injury and deformity, Skin: Negative for injury, rash, and discoloration, Neuro: Negative for headache, weakness, numbness, tingling, and seizure. Exam: 08:41 Constitutional: This is a well developed, well nourished patient who is awake, alert, rn and in no acute distress. Head/Face: Normocephalic, atraumatic. Eyes: Pupils equal round and reactive to light, extra-ocular motions intact ENT: MMM Neck: Trachea midline, no thyromegaly or masses palpated, and no cervical lymphadenopathy. Supple, full range of motion without nuchal rigidity, or vertebral point tenderness. No Meningismus. Cardiovascular: Regular rate and rhythm. No pulse deficits. Respiratory: No increased work of breathing, no retractions or nasal flaring. Abdomen/GI: soft, non-tender, non-distended MS/ Extremity: Pulses equal, no cyanosis. Neurovascular intact. Full, normal range of motion. Equal circumference. Neuro: Awake and alert, GCS 15, oriented to person, place, time, and situation. Cranial nerves II-XII grossly intact. Motor strength 5/5 in all extremities. Sensory grossly intact. Cerebellar exam normal. Normal gait. 08:49 ECG was reviewed by the Attending Physician. rn Vital Signs: 08:36 BP 170 / 85; Pulse 74; Resp 16 S; Temp 97.2(TE); Pulse Ox 97% on R/A; Weight 64.41 kg; iw Height 5 ft. 9 in. (175.26 cm); Pain 0/10; 09:45 BP 143 / 72; Pulse 60; Resp 16; Pulse Ox 97% ; bp 10:55 BP 152 / 81; Pulse 64; Resp 16; Pulse Ox 97% ; bp 11:40 BP 149 / 76; Pulse 63; Resp 16; Pulse Ox 98% ; bp 12:53 BP 143 / 80; Pulse 62; Resp 16; Temp 97.5; Pulse Ox 98% ; bp 08:36 Body Mass Index 20.97 (64.41 kg, 175.26 cm) iw MDM: 08:29 Patient medically screened. rn 10:48 ED course: feels better, not as dizzy, pending MRI brain. No acute findings thus far.. rn 12:14 Differential diagnosis: CVA, generalized weakness, hypovolemia, idiopathic dizziness, rn TIA, vertigo. Data reviewed: vital signs, nurses notes, lab test result(s), EKG, radiologic studies, CT scan, MRI, and as a result, I will discharge patient. Counseling: I had a detailed discussion with the patient and/or guardian regarding: the historical points, exam findings, and any diagnostic results supporting the discharge/admit diagnosis, lab results, radiology results, the need for outpatient follow up, to return to the emergency department if symptoms worsen or persist or if there are any questions or concerns that arise at home. Response to treatment: the patient's symptoms have mildly improved after treatment, and as a result, I will discharge patient. ED course: CT head and MRI neg, + mild dehydration and possible vertigo, will dc home with meclizine and neuro f/u. . 12:23 ED course: Pt refused prescription for nausea medication. Still denies abd pain and has rn benign abd exam.. 05/12 08:38 Order name: CBC with Diff; Complete Time: 09:20 rn 05/12 08:38 Order name: Basic Metabolic Panel; Complete Time: 09:48 rn 05/12 08:38 Order name: Urine Microscopic Only; Complete Time: 11:41 rn 05/12 08:38 Order name: Troponin (emerg Dept Use Only); Complete Time: 09:48 rn 05/12 08:38 Order name: LFT's; Complete Time: 09:48 rn 05/12 08:38 Order name: Lipase; Complete Time: 09:48 rn 05/12 08:38 Order name: CT Head Brain wo Cont; Complete Time: 09:48 rn 05/12 08:38 Order name: EKG; Complete Time: 08:42 rn 05/12 08:41 Order name: B12; Complete Time: 10:28 rn 05/12 08:41 Order name: Folic Acid,Serum (folate); Complete Time: 10:28 rn 05/12 09:20 Order name: Brain Wo Cont MRI; Complete Time: 11:58 rn 05/12 11:11 Order name: Urine Dipstick--Ancillary (enter results); Complete Time: 11:41 bd 05/12 08:38 Order name: IV Start; Complete Time: 08:56 rn 05/12 08:38 Order name: Urine Dipstick-Ancillary (obtain specimen); Complete Time: 10:55 rn 05/12 08:38 Order name: EKG - Nurse/Tech; Complete Time: 08:39 rn EC:49 Rate is 66 beats/min. Rhythm is regular. QRS [place] is Normal. RI interval is normal. QRS rn interval is normal. QT interval is normal. No Q waves. T waves are Normal. No ST changes noted. Clinical impression: Normal ECG. Interpreted by me. Reviewed by me. Administered Medications: 08:50 Drug: NS 0.9% 1000 ml Route: IV; Rate: 1000 ml; Site: left antecubital; bp 12:48 Follow up: IV Status: Completed infusion; IV Intake: 1000ml bp 08:50 Drug: Meclizine 50 mg Route: PO; bp 10:54 Follow up: Response: Marked relief of symptoms bp Disposition: 05/12/19 12:15 Discharged to Home. Impression: Vertigo, Dizziness and giddiness, Dehydration. - Condition is Stable. - Discharge Instructions: Dehydration, Adult, Dizziness, Vertigo. - Prescriptions for Meclizine 25 mg Oral Tablet - take 1 tablet by ORAL route every 8 hours As needed; 30 tablet. - Medication Reconciliation Form, Thank You Letter, Antibiotic Education, Prescription Opioid Use form. - Follow up: Mu Garcia MD; When: As needed; Reason: Recheck today's complaints, Re-evaluation by your physician. - Problem is new. - Symptoms have improved. Signatures: Dispatcher [employer] EDOdalys Marinelli RN Bhavin Vicente MD MD rn Peltier, Brian RN RN bp Corrections: (The following items were deleted from the chart) 12:54 12:15 05/12/2019 12:15 Discharged to Home. Impression: Vertigo; Dizziness and bp giddiness; Dehydration. Condition is Stable. Forms are Medication Reconciliation Form, Thank You Letter, Antibiotic Education, Prescription Opioid Use. Follow up: Mu Garcia; When: As needed; Reason: Recheck today's complaints, Re-evaluation by your physician. Problem is new. Symptoms have improved. rn
[2019-05-12 13:42] VITALS: O2SAT 98
[2019-05-12 13:43] VITALS: BP 143/80; TEMP 97.5
== END 2019-05-12 12:54 | disposition home or self-care (01) ==
LOC: ER 08:21
DX: R42 Dizziness and giddiness (principal); E86.0 Dehydration; E07.9 Disorder of thyroid, unspecified; K21.9 Gastro-esophageal reflux disease without esophagitis
CPT/HCPCS: 96361; 93005; 85025; 80048; 36415; 80076; 84484; 82746; 82607; 83690; 70450; 70551; 96360; 99284; J7030; 81003; 81015; J8597

== ENCOUNTER 2019-09-21 14:30 | Emergency (ER) | payer OTHER ==
[2019-09-21] MEDS ORDERED: NA CHLORIDE 0.9% 500 ML ONE ×2 (15:05→16:09)
[2019-09-21 15:20] LABS: Absolute Lymphocytes (CBC) 1.3 K/uL (0.7-4.9); Basophils % 0.5 % (0-1.3); Hematocrit 41.7 % (39.6-49.0); Lymphocytes % 12.7 % (15.3-44.8); MPV 8.2 fL (7.6-11.3); RBC Red Blood Cell Count 4.33 M/uL (4.33-5.43)
[2019-09-21 15:37] LABS: Albumin 2.8 g/dL (3.4-5.0); Bilirubin Direct 0.1 mg/dL (0-0.2); Bilirubin Total 0.3 mg/dL (0.2-1.0); Potassium 4.2 mmol/L (3.5-5.1); Protein, Total 8.5 g/dL (6.4-8.2)
--- NOTE | 2019-09-21 16:34 | RAD REPORT ---
EXAM DESCRIPTION: CT - Abdomen Pelvis W Contrast - 09/21/2019 4:01 pm CLINICAL HISTORY: Abdominal pain COMPARISON: 2016 TECHNIQUE: Computed axial tomography of the abdomen pelvis was obtained. 100 cc Isovue-300 was admin istered intravenously. Oral contrast was not requested which limits evaluation of bowel. All CT scans are performed using dose optimization technique as appropriate and may include automated exposure control or mA/KV adjustment according to patient size. FINDINGS: The gallbladder is mildly distended. The liver, spleen, pancreas, adrenals and kidneys unremarkable Small hiatal hernia Postsurgical changes involve the stomach A moderate amount stool is present within the right colon. The distal duodenum and proximal jejunum are dilated. The loop of jejunum measures 6.9 centimeters. T here appears to have been surgery in this region. Fecalisation is noted. IMPRESSION: Dilated distal duodenum and proximal jejunum may be secondary to a stricture.
--- NOTE | 2019-09-21 17:35 | EDPHYS ---
Physician Documentation [facility] Name: Abhay Morocho Age: 84 yrs Sex: Male : 1935 Arrival Date: 09/21/2019 Time: 14:32 Bed 20 Private MD: ED Physician Bhavin Norris HPI: 09/20 15:19 This 84 yrs old Male presents to ER via Ambulatory with complaints of rn Diarrhea, Abdominal Pain. 15:19 The patient presents to the emergency department with diarrhea, abdominal pain. Onset: rn The symptoms/episode began/occurred 1 week(s) ago. Possible causes: unknown, antibiotics. Associated signs and symptoms: Pertinent positives: abdominal pain, diarrhea, Pertinent negatives: fever, GI bleeding, nausea, vomiting. Severity of symptoms: At their worst the symptoms were mild in the emergency department the symptoms are unchanged. The patient has not experienced similar symptoms in the past. The patient has been recently seen by a physician:. Reports just completed course of levaquin for pneumonia, since started abx has been having abd cramping and non-bloody diarrhea. reports 10 pound weight loss over this last week. No fever. Has had gastric bypass. . Historical: - Allergies: 14:38 unknown nausea medication "starts with Z" causes severe constipation; hb - Home Meds: 14:38 levothyroxine oral once daily [Active]; Prilosec Oral once daily [Active]; Zantac Oral hb once daily [Active]; - PMHx: 14:38 GERD; Thyroid problem; hb - PSHx: 14:38 Gastric Bypass; hb - Immunization history:: Adult Immunizations up to date. - Social history:: Smoking status: Patient denies any tobacco usage or history of. - Family history:: not pertinent. - Hospitalizations: : No recent hospitalization is reported. ROS: 15:19 Constitutional: Negative for fever, chills Eyes: Negative for injury, pain, redness, rn and discharge, Cardiovascular: Negative for chest pain, palpitations, and edema, Respiratory: Negative for shortness of breath, cough, wheezing, and pleuritic chest pain, Abdomen/GI: Negative for nausea, vomiting, and constipation, MS/Extremity: Negative for injury and deformity, Skin: Negative for injury, rash, and discoloration, Neuro: Negative for headache, numbness, tingling, and seizure. Exam: 15:19 Constitutional: This is a well developed, well nourished patient who is awake, alert, rn and in no acute distress. Head/Face: Normocephalic, atraumatic. ENT: dry MM Cardiovascular: Regular rate and rhythm. No pulse deficits. Respiratory: No increased work of breathing, no retractions or nasal flaring. Abdomen/GI: soft, mild diffuse abd tenderness, no rebound MS/ Extremity: Pulses equal, no cyanosis. Neurovascular intact. Full, normal range of motion. Equal circumference. Neuro: Awake and alert, GCS 15, oriented to person, place, time, and situation. Cranial nerves II-XII grossly intact. Motor strength 5/5 in all extremities. Sensory grossly intact. Cerebellar exam normal. Normal gait. Vital Signs: 14:34 BP 156 / 90; Pulse 94; Resp 16; Temp 97.8; Pulse Ox 98% on R/A; Weight 75.75 kg; Height hb 5 ft. 11 in. (180.34 cm); Pain 2/10; 15:34 BP 142 / 81; Pulse 80; Resp 20; Pulse Ox 98% on R/A; tw2 16:25 BP 142 / 81; Pulse 80; Resp 17; Pulse Ox 97% on R/A; tw2 17:10 BP 154 / 83; Pulse 73; Resp 16; Pulse Ox 98% on R/A; tw2 18:22 BP 155 / 86; Pulse 71; Resp 17; Pulse Ox 96% on R/A; tw2 19:30 BP 153 / 78; Pulse 78; Resp 16; Temp 97.7; Pulse Ox 97% on R/A; rv 20:15 BP 158 / 86; Pulse 80; Resp 16; Pulse Ox 97% on R/A; rv 14:34 Body Mass Index 23.29 (75.75 kg, 180.34 cm) hb [place] Coma Score: 20:46 Eye Response: spontaneous(4). Verbal Response: oriented(5). Motor Response: obeys rv commands(6). Total: 15. MDM: 14:46 Patient medically screened. rn 17:31 Differential diagnosis: viral gastroenteritis, gastroenteritis, abx related diarrhea, rn stricture, obstruction. Data reviewed: vital signs, nurses notes, lab test result(s), radiologic studies, CT scan, and as a result, I will admit patient. Counseling: I had a detailed discussion with the patient and/or guardian regarding: the historical points, exam findings, and any diagnostic results supporting the discharge/admit diagnosis, lab results, radiology results, the need for further work-up and treatment in the hospital. Response to treatment: the patient's symptoms have mildly improved after treatment, and as a result, I will admit patient. Admission orders: after a detailed discussion of the patient's condition and case, the admit orders are written by me. ED course: Pt with likely 2 problems, diarrhea most likely abx-related, non-bloody but given dehydration and weight loss, will admit to Dr. Lawson for further rehydration and stool studies to rule out cdiff. Consulted with Dr. Ash, who does not believe this is surgical, and recommends GI consult as strictures following gastric bypass can be commonly found. Called Dr. Ryan 3 times without response, Dr. Ryan is patient's GI doctor and follows him. Stricture seems to be more of a chronic/incidental finding as patient without vomiting or obstructive symptoms. . 18:42 ED course: Finally Dr. Ryan called back, states he recommends transfer of patient rn because all though he can scope patient, states he cannot dilate intestine and feels this is too high risk to perform here. [facility] and [facility] doctors there. Also had his gastric bypass there. . 09/20 14:53 Order name: Basic Metabolic Panel; Complete Time: 15:44 rn 09/20 14:53 Order name: CBC with Diff; Complete Time: 15:44 rn 09/20 14:53 Order name: Creatinine for Radiology; Complete Time: 15:44 rn 09/20 14:53 Order name: Hepatic Function; Complete Time: 15:44 rn 09/20 14:53 Order name: Lipase; Complete Time: 15:44 rn 09/20 14:53 Order name: CT Abd/Pelvis - IV Contrast Only; Complete Time: 16:41 rn 09/20 19:03 Order name: EKG; Complete Time: 19:04 09/20 14:53 Order name: IV Saline Lock; Complete Time: 15:32 rn 09/20 14:53 Order name: Labs collected and sent; Complete Time: 15:41 rn 09/20 19:03 Order name: EKG - Nurse/Tech; Complete Time: 19:26 rn Administered Medications: 15:30 Drug: NS 0.9% 500 ml Route: IV; Rate: bolus; Site: left antecubital; tw2 16:22 Follow up: Response: No adverse reaction; IV Status: Completed infusion; IV Intake: tw2 500ml 19:04 Follow up: IV Status: Completed infusion; IV Intake: 500ml rv 16:20 Drug: NS 0.9% 500 ml Route: IV; Rate: bolus; Site: left antecubital; tw2 18:56 Follow up: Response: No adverse reaction; IV Status: Completed infusion; IV Intake: tw2 500ml 19:04 Follow up: IV Status: Completed infusion; IV Intake: 500ml rv 21:15 Drug: Pantoprazole 40 mg Route: PO; rv 21:20 Follow up: Response: Medication administered at discharge. rv 21:19 Not Given (Patient Refused): Zofran (Ondansetron) 4 mg IVP once; over 2 minutes rv Disposition: 09/21/19 18:59 Transfer ordered to [facility]. Diagnosis are Intestinal Stricture, Diarrhea, unspecified, Abnormal weight loss. - Reason for transfer: Higher level of care. - Accepting physician is . - Condition is Stable. - Problem is new. - Symptoms have improved. Signatures: Dispatcher [employer] EDMS Bhavin Norris MD MD rn Baxter, Heather, RN Jo Ann Mendoza RN RN tw2 Vipul Donaldson RN RN rv Corrections: (The following items were deleted from the chart) 18:58 17:35 Hospitalization Ordered by Jeffrey Lawson MD for Observation. Preliminary rn diagnosis is Dehydration; Diarrhea, unspecified; Intestinal stricture. Bed requested for Telemetry/MedSurg (observation). Status is Observation. Condition is Stable. Problem is new. Symptoms have improved. rn 21:21 18:59 09/21/2019 18:59 Transfer ordered to [facility]. Diagnosis is Intestinal rv Stricture; Diarrhea, unspecified; Abnormal weight loss. Reason for transfer: Higher level of care. Accepting physician is . Condition is Stable. Problem is new. Symptoms have improved. rn
--- NOTE | 2019-09-21 17:35 | ER ---
Nurse's Notes [facility] Name: Abhay Morocho Age: 84 yrs Sex: Male : 1935 Arrival Date: 09/21/2019 Time: 14:32 Bed 20 Private MD: Diagnosis: Intestinal Stricture;Diarrhea, unspecified;Abnormal weight loss Presentation: 09/20 14:34 Chief complaint: Abdominal pain, nausea, and diarrhea x 1 week. Dx with pneumonia 09/12, hb completed Levaquin.yesterday. Coronavirus screen: Patient reports a subjective fever or greater than 100.4F, or cough, or shortness of breath, or difficulty breathing. cough, mask applied to patient. Ebola Screen: No symptoms or risks identified at this time. Initial Sepsis Screen: Does the patient meet any 2 criteria? No. Patient's initial sepsis screen is negative. Does the patient have a suspected source of infection? No. Patient's initial sepsis screen is negative. Risk Assessment: Do you want to hurt yourself or someone else? Patient reports no desire to harm self or others. 14:34 Method Of Arrival: Ambulatory hb 14:34 Acuity: ALMAS 3 hb 20:47 Onset of symptoms is unknown. rv Historical: - Allergies: 14:38 unknown nausea medication "starts with Z" causes severe constipation; hb - Home Meds: 14:38 levothyroxine oral once daily [Active]; Prilosec Oral once daily [Active]; Zantac Oral hb once daily [Active]; - PMHx: 14:38 GERD; Thyroid problem; hb - PSHx: 14:38 Gastric Bypass; hb - Immunization history:: Adult Immunizations up to date. - Social history:: Smoking status: Patient denies any tobacco usage or history of. - Family history:: not pertinent. - Hospitalizations: : No recent hospitalization is reported. Screenin:12 Abuse screen: Denies threats or abuse. Nutritional screening: No deficits noted. tw2 Tuberculosis screening: No symptoms or risk factors identified. Fall Risk Secondary diagnosis (15 points) impaired mobility. Assessment: 14:45 General: Appears in no apparent distress. slender, well groomed, Behavior is calm, tw2 cooperative, appropriate for age. Pain: Complains of pain in abdomen. Neuro: Level of Consciousness is awake, alert, obeys commands, Oriented to person, place, time, situation. Cardiovascular: Heart tones S1 S2 Capillary refill < 3 seconds Patient's skin is warm and dry. Respiratory: Airway is patent Respiratory effort is even, unlabored, Respiratory pattern is regular, symmetrical, Breath sounds are clear bilaterally. GI: Abdomen is flat, Bowel sounds present X 4 quads. Reports lower abdominal pain, upper abdominal pain, diarrhea. : No signs and/or symptoms were reported regarding the genitourinary system. EENT: No signs and/or symptoms were reported regarding the EENT system. Derm: No signs and/or symptoms reported regarding the dermatologic system. Musculoskeletal: Range of motion: intact in all extremities. 15:34 Reassessment: Patient appears in no apparent distress at this time. No changes from tw2 previously documented assessment. Patient and/or family updated on plan of care and expected duration. Pain level reassessed. Patient is alert, oriented x 3, equal unlabored respirations, skin warm/dry/pink. 16:30 Reassessment: Patient appears in no apparent distress at this time. No changes from tw2 previously documented assessment. Patient and/or family updated on plan of care and expected duration. Pain level reassessed. Patient is alert, oriented x 3, equal unlabored respirations, skin warm/dry/pink. 17:31 Reassessment: Patient appears in no apparent distress at this time. No changes from tw2 previously documented assessment. Patient and/or family updated on plan of care and expected duration. Pain level reassessed. Patient is alert, oriented x 3, equal unlabored respirations, skin warm/dry/pink. 18:23 Reassessment: Patient appears in no apparent distress at this time. No changes from tw2 previously documented assessment. Patient and/or family updated on plan of care and expected duration. Pain level reassessed. Patient is alert, oriented x 3, equal unlabored respirations, skin warm/dry/pink. 18:45 Reassessment: provider at bedside discussing transfer with pt at this time after phone tw2 call from dr. covarrubias. 20:45 Reassessment: Patient appears in no apparent distress at this time. Patient and/or rv family updated on plan of care and expected duration. Pain level reassessed. Patient is alert, oriented x 3, equal unlabored respirations, skin warm/dry/pink. patient denies nausea at the moment. [place] [facility] [place] Vital Signs: 14:34 BP 156 / 90; Pulse 94; Resp 16; Temp 97.8; Pulse Ox 98% on R/A; Weight 75.75 kg; Height hb 5 ft. 11 in. (180.34 cm); Pain 2/10; 15:34 BP 142 / 81; Pulse 80; Resp 20; Pulse Ox 98% on R/A; tw2 16:25 BP 142 / 81; Pulse 80; Resp 17; Pulse Ox 97% on R/A; tw2 17:10 BP 154 / 83; Pulse 73; Resp 16; Pulse Ox 98% on R/A; tw2 18:22 BP 155 / 86; Pulse 71; Resp 17; Pulse Ox 96% on R/A; tw2 19:30 BP 153 / 78; Pulse 78; Resp 16; Temp 97.7; Pulse Ox 97% on R/A; rv 20:15 BP 158 / 86; Pulse 80; Resp 16; Pulse Ox 97% on R/A; rv 14:34 Body Mass Index 23.29 (75.75 kg, 180.34 cm) hb Becky Coma Score: 20:46 Eye Response: spontaneous(4). Verbal Response: oriented(5). Motor Response: obeys rv commands(6). Total: 15. ED Course: 14:32 Patient arrived in ED. ag5 14:37 Triage completed. hb 14:38 Arm band placed on. hb 14:38 Bed in low position. Call light in reach. school lunch monitor on. Pulse ox on. NIBP on. tw2 Warm blanket given. 14:46 Bhavin Norris MD is Attending Physician. rn 14:55 Jo Ann Aragon, HIMANSHU is Primary Nurse. tw2 15:10 Missed attempt(s): 22 gauge 24 gauge in right forearm. antecubital area. kj1 15:30 Inserted saline lock: 22 gauge in left antecubital area, using aseptic technique. tw2 16:02 CT Abd/Pelvis - IV Contrast Only In Process Unspecified. EDMS 17:34 Jeffrey Lawson MD is Hospitalizing Provider. rn 20:47 No provider procedures requiring assistance completed. IV is patent, with fluids rv infusing freely, with good blood return, Patient transferred, IV remains in place. Administered Medications: 15:30 Drug: NS 0.9% 500 ml Route: IV; Rate: bolus; Site: left antecubital; tw2 16:22 Follow up: Response: No adverse reaction; IV Status: Completed infusion; IV Intake: tw2 500ml 19:04 Follow up: IV Status: Completed infusion; IV Intake: 500ml rv 16:20 Drug: NS 0.9% 500 ml Route: IV; Rate: bolus; Site: left antecubital; tw2 18:56 Follow up: Response: No adverse reaction; IV Status: Completed infusion; IV Intake: tw2 500ml 19:04 Follow up: IV Status: Completed infusion; IV Intake: 500ml rv 21:15 Drug: Pantoprazole 40 mg Route: PO; rv 21:20 Follow up: Response: Medication administered at discharge. rv 21:19 Not Given (Patient Refused): Zofran (Ondansetron) 4 mg IVP once; over 2 minutes rv Intake: 16:22 IV: 500ml; Total: 500ml. tw2 18:56 IV: 500ml; Total: 1000ml. tw2 19:04 IV: 500ml; Total: 1500ml. rv 19:04 IV: 500ml; Total: 2000ml. rv Outcome: 17:35 Decision to Hospitalize by Provider. rn 18:59 ER care complete, transfer ordered by . rn 20:47 Transferred by ground EMS to [facility], Transfer form completed. X-rays rv sent w/ patient. 20:47 Condition: good 20:47 Instructed on the need for transfer, Demonstrated understanding of instructions. 21:21 Patient left the ED. rv Signatures: Dispatcher [employer] EDMS Bhavin Norris MD MD rn Baxter, Heather, RN RN hb Wise, Tara, RN RN tw2 Vipul Donaldson RN RN rv Gaskin, Ajare ag5 Talisha Souza kj1
[2019-09-21] MEDS ORDERED: ONDANSETRON 4 MG/2 ML VIAL ONE (19:06)
[2019-09-21] MEDS ORDERED: PANTOPRAZOLE 40MG TABLET PO ONE (21:16)
[2019-09-21 21:42] VITALS: TEMP 97.7; O2SAT 97
[2019-09-21 21:43] VITALS: BP 158/86
--- NOTE | 2019-09-22 10:58 | EKG ---
Test Date: 2019-09-21 Test Time: 19:11:19 Primary Special Educator: CHERRY MEASUREMENT RESULTS: Intervals: Rate: 76 GA: 180 QRSD: 84 QT: 368 QTc: 414 [place]: P: 86 GA: 180 QRS: 5 T: 32 INTERPRETIVE STATEMENTS: Normal sinus rhythm Possible Anterior infarct, age undetermined Abnormal ECG Compared to ECG 05/12/2019 08:41:45 Myocardial infarct finding now present Electronically Signed On 09-22-19 10:56:13 CDT by Lucius Harmon
== END 2019-09-21 21:21 | disposition short-term general hospital (02) ==
LOC: ER 14:30
DX: K56.609 Unspecified intestinal obstruction, unspecified as to partial versus complete obstruction (principal); R63.4 Abnormal weight loss; E07.9 Disorder of thyroid, unspecified; K21.9 Gastro-esophageal reflux disease without esophagitis; Z88.8 Allergy status to other drugs, medicaments and biological substances
CPT/HCPCS: 93005; 85025; 80048; 36415; 80076; 83690; 74177; Q9967; J7040 ×2; 96360; 96361; 99285; J2405

== ENCOUNTER 2020-03-20 11:45 | Inpatient (IN) | payer OTHER ==
--- OUTSIDE RECORDS SUMMARY | 2020-03-20 11:48 | XMS REPORT | Clinical Summary ---
:1935 Author Organization [facility] Address [address] [place] [address] Care Team Providers Name Role Phone Davi Hdez MD Primary Care Provider Allergies Active Allergy Reactions Severity Noted Date Comments Ondansetron Hcl GI Intolerance 09/23/2019 Per qamar hudson report Medications Medication Sig Dispensed Refills Start End Date Status Date omeprazole Take 40 mg by 0 Activ e (PriLOSEC) 40 MG mouth 2 (two) capsule times a day. travoprost 1 drop 0 Active (TRAVATAN-Z) 0.004 nightly. % promethazine Take 1 tablet 30 tablet 1 Act shameka (PHENERGAN) 12.5 MG (12.5 mg 0 tablet total) by mouth as needed for nausea or vomiting (before with meals). calcium Take 1 tablet 270 tablet 3 Activ e citrate-vitamin D2 by mouth 3 0 250-100 mg-unit per (three) times tablet a day. ranitidine (ZANTAC) Take 150 mg by 0 09/20 Discontinued 150 MG tablet mouth 2 (two) 20 (P atient times a day. Reporte d) levothyroxine Take 125 mcg 0 09/27/19 Dis continued (SYNTHROID, by mouth every 20 (St op Taking at LEVOXYL) 125 mcg morning. Dis charge) tablet mirtazapine Take 15 mg by 0 09/21/19 Disc ontinued (REMERON) 15 MG mouth nightly. 20 (Patient tablet Reported) amoxicillin Take 500 mg by 0 09/27/19 Dis continued (AMOXIL) 500 MG mouth 2 (two) 20 (Stop Taking at capsule times a day. Dischar ge) Amox-Clav 500-125mg per tablet famotidine (PEPCID) Take 1 tablet 60 tablet 0 20 MG tablet (20 mg total) 0 20 by mouth 2 (two) times a day for 30 days. docusate sodium Take 1 capsule 60 capsule 0 10/27/19 (Colace) 100 MG (100 mg total) 0 20 capsule by mouth 2 (two) times a day for 30 days. lactulose 20 Take 15 mL (10 900 mL 1 11/26/19 Ex pired gram/30 mL solution g total) by 0 20 mouth 2 (two) times a day for 60 days. levothyroxine Take 1 tablet 30 tablet 0 10/27/19 Ex pired (Synthroid) 112 mcg (112 mcg 0 20 tablet total) by mouth daily for 30 days. multivitamin with Take 1 tablet 30 tablet 0 10/27/19 minerals tablet by mouth daily 0 20 for 30 days. ferrous sulfate Take 1 tablet 30 tablet 0 10/27/19 (FerrouSul) 325 (65 (325 mg total) 0 20 FE) MG tablet by mouth daily with breakfast for 30 days. cyanocobalamin Take 1 tablet 30 tablet 3 01/25/20 E xpired (B-12 DOTS) 500 MCG (500 mcg 0 20 tablet total) by mouth daily for 120 days. Active Problems Problem Noted Date NSVT (nonsustained ventricular tachycardia) 09/26/2019 Constipation 09/26/2019 Hypothyroidism 09/26/2019 Normocytic anemia 09/26/2019 Thoracic ascending aortic aneurysm 09/26/2019 Overview: 5.2 cm Hypoalbuminemia due to protein-calorie malnutrition Abdominal pain 09/22/2019 Small bowel obstruction 09/22/2019 Bezoar 09/22/2019 Severe protein-calorie malnutrition 09/22/2019 Status post gastric bypass surgery 11/13/2016 Status post gastric bypass revision surgery 11/13/2016 GERD (gastroesophageal reflux disease) 11/13/2016 Pharyngoesophageal dysphagia 11/13/2016 Status post laparoscopic fundoplication 11/13/2016 Resolved Problems Problem Noted Date Resolved Date Aspiration pneumonia 09/22/2019 09/24/2019 Encounters Date Type Specialty Care Team Description 09/30/2019 Telephone Internal Medicine Joseph Monterroso MD 09/28/2019 Travel 09/28/2019 Patient Outreach Quality Sherine Willis, HIMANSHU 09/28/2019 Patient Outreach Sherine Marquez RN 09/21/2019 - Hospital Encounter Orthopedic Surgery Mayra Beltre Th oracic ascending 09/27/2019 MD Wilbur aortic aneurysm (HCC) (Primary Dx) 09/21/2019 Travel after 03/20/2019 Family History Medical History Relation Name Comments [...] Not on file Last Filed Vital Signs Vital Sign Reading Time Taken Comments Blood Pressure 133/64 09/27/2019 12:42 PM CDT Pulse 94 09/27/2019 12:42 PM CDT Temperature 36.4 C (97.6 F) 09/27/2019 12:42 PM CDT Respiratory Rate 19 09/27/2019 12:42 PM CDT Oxygen Saturation 96% 09/27/2019 12:42 PM CDT Inhaled Oxygen Concentration - - Weight 62.4 kg (137 lb 9.1 oz) 09/23/2019 1:00 PM CDT Height 175.3 cm (5' 9") 09/23/2019 1:00 PM CDT Body Mass Index 20.32 09/23/2019 1:00 PM CDT Plan of Treatment Health Maintenance Due Date Last Done Comments SHINGLES VACCINES (#1) 1983 65+ PNEUMOCOCCAL VACCINE (1 of 1 - PPSV23) 1998 INFLUENZA VACCINE 02/29/2020 Procedures Procedure Name Priority Date/Time Associated Comments Diagnosis XR ABDOMEN 2 VW AP W STAT 09/27/2019 8:56 Res ults for this UPRIGHT AND/OR AM CDT procedure are in DECUBITUS the results section. HC COMPLETE BLD COUNT Routine 09/27/2019 4:30 Re sults for this W/AUTO DIFF AM CDT procedure are i n the results section. ESTIMATED GFR Routine 09/27/2019 4:00 Results fo r this AM CDT procedure are i n the results section. PHOSPHORUS LEVEL Routine 09/27/2019 4:00 Results for this AM CDT procedure are i n the results section. MAGNESIUM LEVEL Routine 09/27/2019 4:00 Results for this AM CDT procedure are i n the results section. COMPREHENSIVE METABOLIC Routine 09/27/2019 4:00 Results for this PANEL AM CDT procedure are i n the results section. ECG 12-LEAD Routine 09/26/2019 10:13 Results for this AM CDT procedure are i n the results section. HC COMPLETE BLD COUNT Routine 09/26/2019 4:05 Re sults for this W/AUTO DIFF AM CDT procedure are i n the results section. MAGNESIUM LEVEL Routine 09/26/2019 4:00 Results for this AM CDT procedure are i n the results section. PHOSPHORUS LEVEL Routine 09/26/2019 4:00 Results for this AM CDT procedure are i n the results section. ESTIMATED GFR Routine 09/26/2019 4:00 Results fo r this AM CDT procedure are i n the results section. COMPREHENSIVE METABOLIC Routine 09/26/2019 4:00 Results for this PANEL AM CDT procedure are i n the results section. XR ABDOMEN 2 VW AP W Routine 09/25/2019 10:40 Res ults for this UPRIGHT AND/OR AM CDT procedure are in DECUBITUS the results section. HC COMPLETE BLD COUNT Routine 09/25/2019 4:30 Re sults for this W/AUTO DIFF AM CDT procedure are i n the results section. ESTIMATED GFR Routine 09/25/2019 4:00 Results fo r this AM CDT procedure are i n the results section. BASIC METABOLIC PANEL Routine 09/25/2019 4:00 Re sults for this AM CDT procedure are i n the results section. PHOSPHORUS LEVEL Routine 09/25/2019 4:00 Results for this AM CDT procedure are i n the results section. MAGNESIUM LEVEL Routine 09/25/2019 4:00 Results for this AM CDT procedure are i n the results section. ESTIMATED GFR Routine 09/24/2019 4:43 Results fo r this AM CDT procedure are i n the results section. HC COMPLETE BLD COUNT Routine 09/24/2019 4:43 Re sults for this W/AUTO DIFF AM CDT procedure are i n the results section. BASIC METABOLIC PANEL Routine 09/24/2019 4:43 Re sults for this AM CDT procedure are i n the results section. PHOSPHORUS LEVEL Routine 09/24/2019 4:43 Results for this AM CDT procedure are i n the results section. MAGNESIUM LEVEL Routine 09/24/2019 4:43 Results for this AM CDT procedure are i n the results section. COPPER LEVEL, SERUM STAT 09/23/2019 11:30 Resu lts for this AM CDT procedure are i n the results section. PREALBUMIN LEVEL STAT 09/23/2019 11:30 Results for this AM CDT procedure are i n the results section. TYPE AND SCREEN Routine 09/23/2019 11:30 Results for this AM CDT procedure are i n the results section. PARTIAL THROMBOPLASTIN Routine 09/23/2019 11:30 R esults for this TIME (PTT) AM CDT procedure are i n the results section. TRANSFERRIN LEVEL STAT 09/23/2019 11:30 Result s for this AM CDT procedure are i n the results section. ZINC LEVEL, SERUM STAT 09/23/2019 11:30 Result s for this AM CDT procedure are i n the results section. VITAMIN E LEVEL, PLASMA STAT 09/23/2019 11:30 Results for this OR SERUM AM CDT procedure are i n the results section. VITAMIN D 25 HYDROXY STAT 09/23/2019 11:30 Res ults for this LEVEL AM CDT procedure are i n the results section. VITAMIN B6 LEVEL, STAT 09/23/2019 11:30 Result s for this PLASMA AM CDT procedure are i n the results section. VITAMIN B12 LEVEL STAT 09/23/2019 11:30 Result s for this AM CDT procedure are i n the results section. VITAMIN A LEVEL, PLASMA STAT 09/23/2019 11:30 Results for this OR SERUM AM CDT procedure are i n the results section. SELENIUM, SERUM STAT 09/23/2019 11:30 Results for this AM CDT procedure are i n the results section. THYROID STIMULATING STAT 09/23/2019 11:30 Resu lts for this HORMONE AM CDT procedure are i n the results section. PARATHYROID HORMONE STAT 09/23/2019 11:30 Resu lts for this AM CDT procedure are i n the results section. LIPID PANEL STAT 09/23/2019 11:30 Results for this AM CDT procedure are i n the results section. IRON LEVEL STAT 09/23/2019 11:30 Results for this AM CDT procedure are i n the results section. FOLATE LEVEL STAT 09/23/2019 11:30 Results for this AM CDT procedure are i n the results section. COPPER LEVEL, SERUM STAT 09/23/2019 11:30 Resu lts for this AM CDT procedure are i n the results section. CHROMIUM, SERUM STAT 09/23/2019 11:30 Results for this AM CDT procedure are i n the results section. XR ABDOMEN 2 VW AP W STAT 09/23/2019 9:24 Res ults for this UPRIGHT AND/OR AM CDT procedure are in DECUBITUS the results section. HC COMPLETE BLD COUNT Routine 09/23/2019 6:30 Re sults for this W/AUTO DIFF AM CDT procedure are i n the results section. ESTIMATED GFR Routine 09/23/2019 4:00 Results fo r this AM CDT procedure are i n the results section. BASIC METABOLIC PANEL Routine 09/23/2019 4:00 Re sults for this AM CDT procedure are i n the results section. PHOSPHORUS LEVEL Routine 09/23/2019 4:00 Results for this AM CDT procedure are i n the results section. MAGNESIUM LEVEL Routine 09/23/2019 4:00 Results for this AM CDT procedure are i n the results section. FL UGI GI AND SMALL STAT 09/22/2019 2:11 Resu lts for this BOWEL PM CDT procedure are i n the results section. CT CHEST WO CONTRAST Routine 09/22/2019 10:10 Res ults for this AM CDT procedure are i n the results section. XR ABDOMEN 2 VW AP W STAT 09/22/2019 10:01 Res ults for this UPRIGHT AND/OR AM CDT procedure are in DECUBITUS the results section. XR CHEST 1 VW PORTABLE Routine 09/22/2019 6:33 R esults for this AM CDT procedure are i n the results section. ECG 12-LEAD Routine 09/22/2019 6:21 Results for this AM CDT procedure are i n the results section. URINALYSIS SCREEN AND Routine 09/22/2019 6:10 Re sults for this MICROSCOPY, WITH REFLEX AM CDT proc edure are in TO CULTURE the results section. URINE CULTURE Routine 09/22/2019 6:10 Results fo r this AM CDT procedure are i n the results section. RESPIRATORY PATHOGEN Routine 09/22/2019 3:00 Res ults for this PANEL AM CDT procedure are i n the results section. BLOOD CULTURE, AEROBIC Routine 09/22/2019 1:00 R esults for this & ANAEROBIC AM CDT procedure are i n the results section. ESTIMATED GFR Routine 09/22/2019 12:45 Results fo r this AM CDT procedure are i n the results section. T4, FREE Routine 09/22/2019 12:45 Results for this AM CDT procedure are i n the results section. THYROID STIMULATING Routine 09/22/2019 12:45 Resu lts for this HORMONE AM CDT procedure are i n the results section. PHOSPHORUS LEVEL Routine 09/22/2019 12:45 Results for this AM CDT procedure are i n the results section. MAGNESIUM LEVEL Routine 09/22/2019 12:45 Results for this AM CDT procedure are i n the results section. COMPREHENSIVE METABOLIC Routine 09/22/2019 12:45 Results for this PANEL AM CDT procedure are i n the results section. HC COMPLETE BLD COUNT Routine 09/22/2019 12:45 Re sults for this W/AUTO DIFF AM CDT procedure are i n the results section. BLOOD CULTURE, AEROBIC Routine 09/22/2019 12:45 R esults for this & ANAEROBIC AM CDT procedure are i n the results section. CT ABD/PELVIC EXTERNAL Routine 09/21/2019 4:02 R esults for this STUDY PM CDT procedure are i n the results section. after 03/20/2019 Results XR Abdomen 2 Vw Ap W Upright And/Or Decubitus (09/27/2019 8:56 AM CDT)Only the most recent of4 resultswithin the time period is included. Specimen Narrative Performed At EXAMINATION: XR ABDOMEN 2 VW AP W UPRI GHT AND OR DECUBITUS [facility] CLINICAL HISTORY: SBO COMPARISON: 09/25/2019 FINDINGS: XR ABDOMEN 2 VW AP W UPRIGHT AND OR DECU BITUS images are submitted. There is mild gastric distention. Minimal small bowel dilatation is present. Moderate colonic fecal retention is present. Bowel gas is scattered throughout the abdomen. IMPRESSION: 1. There is no focal bowel obstruction. 2. Minimal gastric distention is present . 3. Extensive colonic fecal retention is present. [id number] Procedure Note Hm Interface, Radiology Results Incoming - 09/27/2019 9:01 AM CDT EXAMINATION: XR ABDOMEN 2 VW AP W UPRIGHT AND OR DECUBITUS CLINICAL HISTORY: SBO COMPARISON: 09/25/2019 FINDINGS: XR ABDOMEN 2 VW AP W UPRIGHT AND OR DECU BITUS images are submitted. There is mild gastric distention. Minima l small bowel dilatation is present. Moderate colonic fecal retention is present. Bowel gas is scattered throughout the abdomen. IMPRESSION: 1. There is no focal bowel obstruction. 2. Minimal gastric distention is present . 3. Extensive colonic fecal retention is present. [id number] Performing Organization Address City/State/ZIP Code Phon e Number [facility] [address] [place] [address] CBC with platelet and differential (09/27/2019 4:30 AM CDT)Only the most recent of6 resultswithin the time period is included. WBC 7.73 4.50 - 11.00 [facility] k/uL [facility] RBC 3.79 (L) 4.40 - 6.00 [facility] m/[facility] HGB 11.8 (L) 14.0 - 18.0 [facility] HCT 36.5 (L) 41.0 - 51.0 % [facility] MCV 96.3 82.0 - 100.0 [facility] MCH 31.1 27.0 - 34.[address] [facility] MCHC 32.3 31.0 - 37.0 [facility] RDW - SD 45.7 37.0 - 55.[address] [facility] MPV 10.6 8.8 - 13.[address] [facility] Platelet count 357 150 - 400 k/uL [facility] Nucleated RBC 0.00 /[address] [facility] Neutrophils 70.0 (H) 39.0 - 69.0 % [facility] Lymphocytes 15.1 (L) 25.0 - 45.0 % [facility] Monocytes 11.8 (H) 0.0 - 10.0 % [facility] Eosinophils 2.2 0.0 - 5.0 % [facility] Basophils 0.3 0.0 - 1.0 % [facility] Immature granulocytes 0.6Comment: 0.0 - 1.0 % [facility] "Immature HOSPITAL granulocytes" (promyelocytes , myelocytes, metamyelocytes ) Specimen Blood Performing Organization Address City/[facility] Phon e Number [facility] DEPARTMENT OF PATHOLOGY AND [address] [place] [address] [phone] [address] Estimated GFR (09/27/2019 4:00 AM CDT)Only the most recent of6 resultswithin the time period is included. Estimated GFR 77 mL/min/1.73 [facility] Comment: m2 HOSPITAL Catergory Units Interpretation G1 >=90 Normal or high G2 60-89 Mildly decreased G3a 45-59 Mildly to moderately decreas ed G3b 30-44 Moderately to severely decre ased G4 15-29 Severely decreased G5 <15 Kidney failure The eGFR was calculated using the Chronic Kidney Disea se Epidemiology Collaboration (CKD-EPI) equation. Interpretation is based on recommendations of the National Kidney Foundation-Kidney Disease Outcomes Familia lity Initiative (NKF-KDOQI) published in 2014. Specimen Performing Organization Address [facility] Phon e Number [facility] DEPARTMENT OF PATHOLOGY AND [address] [place] [address] [phone] [address] Phosphorus level (09/27/2019 4:00 AM CDT)Only the most recent of6 resultswithin the time period is included. Pathologist Sig nature Phosphorus 3.1 2.4 - 4.5 mg/dL [facility] L Specimen Blood Performing Organization Address City/[facility]/ZIP Code Phon e Number [facility] DEPARTMENT OF PATHOLOGY AND [address] [place] [address] [phone] [address] Magnesium level (09/27/2019 4:00 AM CDT)Only the most recent of6 resultswithin the time period is included. Pathologist Sig nature Magnesium 2.2 1.6 - 2.4 mg/dL [facility] L Specimen Blood Performing Organization Address City/[facility] Phon e Number [facility] DEPARTMENT OF PATHOLOGY AND [address] [place] [address] [phone] [address] Comprehensive metabolic panel (09/27/2019 4:00 AM CDT)Only the most recent of3 resultswithin the time period is included. Sodium 139 135 - 148 [facility] mEq/L [facility] Potassium 4.1 3.5 - 5.0 [facility] mEq/L [facility] Chloride 105 98 - 112 [facility] mEq/L [facility] CO2 24 24 - 31 mEq/L [facility] Anion gap 10@ANIO 7 - 15 mEq/L [facility] BUN 6 (L) 8 - 23 mg/dL [facility] Creatinine 0.90 0.70 - 1.20 [facility] mg/dL [facility] Glucose 110 (H) 65 - 99 mg/dL [facility] Calcium 8.7 (L) 8.8 - 10.2 [facility] mg/dL [facility] Protein 6.5 6.3 - 8.3 [facility] Comment: g/dL [facility] [place] 4.6-7.0 g/dL 1 week 4.4-7.6 g/dL 7 months-1year 5.1-7.3 g/dL 1-2 years 5.6-7.5 g/dL >3 years 6.0-8.0 g/dL 18-150 6.3-8.3 g/dL Albumin 2.2 (L) 3.5 - 5.0 [facility] g/dL [facility] A/G ratio 0.5 (L) 0.7 - 3.8 [facility] Alkaline phosphatase 75 40 - 129 U/L [facility] AST 18 10 - 50 U/L [facility] ALT 28 5 - 50 U/L [facility] Total bilirubin 0.4 0.0 - 1.2 [facility] mg/dL [facility] Specimen Blood Performing Organization Address City/State/ZIP Code Phon e Number [facility] DEPARTMENT OF PATHOLOGY AND [address] [place] [phone] GENOMIC MEDICINE [address] [address] ECG 12 lead (09/26/2019 10:13 AM CDT)Only the most recent of2 resultswithin the time period is included. Pathologist Sig nature Ventricular rate 79 [facility] Atrial rate 79 [facility] [place] interval 180 [facility] QRSD interval 76 [facility] QT interval 354 [facility] QTC interval 405 [facility] P axis 1 79 [facility] QRS axis 1 43 [facility] T wave axis 63 [facility] MUSE EKG impression Normal sinus [facility] MUSE rhythm-Septal infarct , age undetermined-Electronic ally Signed By Alexis Mahan MD ([id number]) on 09/26/2019 8:50:36 PM Specimen Narrative Performed At This result has an attachment that is no t available. Performing Organization Address City/[facility] Phon e Number [facility] MUSE [address] [place] [address] Basic metabolic panel (09/25/2019 4:00 AM CDT)Only the most recent of3 results within the time period is included. Pathologist Sig nature Sodium 140 135 - 148 mEq/L [facility] L Potassium 4.2 3.5 - 5.0 mEq/L [facility] L Chloride 106 98 - 112 mEq/L [facility] CO2 23 (L) 24 - 31 mEq/L [facility] Anion gap 11@ANIO 7 - 15 mEq/L [facility] BUN 6 (L) 8 - 23 mg/dL [facility] Creatinine 0.96 0.70 - 1.20 mg/dL [facility] Glucose 91 65 - 99 mg/dL [facility] Calcium 8.7 (L) 8.8 - 10.2 mg/dL [facility] Specimen Blood Performing Organization Address [facility] Phon e Number [facility] DEPARTMENT OF PATHOLOGY AND [address], [place] [phone] GENOMIC MEDICINE [place] [id number] [place] [address] Copper level, serum (09/23/2019 11:30 AM CDT)Only the most recent of2 results within the time period is included. Copper 139.7 70.0 - 140.0 [facility] Comment: ug/dL INTERPRETIVE INFORMATION: Copper, Serum or Plasma Elevated results may be due to skin or collection-rela allegra contamination, including the use of a noncertified met al-free collection/transport tube. If contamination concerns e xist due to elevated levels of serum/plasma copper, confirmation w ith a second specimen collected in a certified metal-free tube is r ecommended. Serum copper may be elevated with infection, inflammat ion, stress, and copper supplementation. In females, elevated coppe r may also be caused by oral contraceptives and (concen trations may be elevated up to 3 times normal during the third trim kendra). Test developed and characteristics determined by [facility]. See Compliance Statement B: [facility]/ CS Performed by [facility], [address] [place] [phone] [email or web address], Chris Daly MD, Lab. Director Specimen Performing Organization Address [facility] Phon e Number [facility] [address] [place] [address] [facility] [address] [place] [address] Zinc level, serum (09/23/2019 11:30 AM CDT) Zinc 77.5 60.0 - 120.0 [facility] Comment: ug/dL INTERPRETIVE INFORMATION: Zinc, Serum or Plasma Elevated results may be due to skin or collection-rela allegra contamination, including the use of a noncertified met al-free collection/transport tube. If contamination concerns e xist due to elevated levels of serum/plasma zinc, confirmation wit h a second specimen collected in a certified metal-free tube is r ecommended. Circulating zinc concentrations are dependent on album in status and are depressed with malnutrition. Zinc may also b e lowered with infection, inflammation, stress, oral contracepti ves, and . Zinc may be elevated with zinc supplement ation or fasting. Elevated zinc concentrations may interfere with copper absorption. Test developed and characteristics determined by [facility]. See Compliance Statement B: [facility]/ CS Performed by [facility], [address] [place] [phone] [email or web address], Chris Daly MD, Lab. Director Specimen Blood Performing Organization Address [facility] Phon e Number [facility] [address] [place] [address] [facility] [address] [place] [address] Vitamin A level, plasma or serum (09/23/2019 11:30 AM CDT) Vitamin A (retinol) 0.30 0.30 - 1.20 [facility] mg/L Retinyl palmitate <0.02 0.00 - 0.10 [facility] mg/L Vitamin A Normal [facility] interpretation Comment: Test developed and characteristics determined by [facility]. See Compliance Statement B: [facility]/ CS Performed by [facility], [address] [place] [phone] [email or web address], Chris Daly MD, Lab. Director Specimen Blood Performing Organization Address [facility] Phon e Number [facility] [address] [place] [address] [facility] [address] [place] [phone] Selenium, serum (09/23/2019 11:30 AM CDT) Selenium, serum 151.8 23.0 - 190.0 [facility] Comment: ug/L INTERPRETIVE INFORMATION: Selenium, Serum or Plasma Elevated results may be due to contamination from skin or other collection-related issues, including the use of a nonc ertified metal-free collection/transport tube. If contamination concerns exist due to elevated levels of serum/plasma selenium, confirmation with a second specimen collected in a cer tified metal-free tube is recommended. Serum selenium levels can be used in the determination of deficiency or toxicity. Plasma and serum contains 75 p ercent of the selenium measured in whole blood and reflects rece nt dietary intake. Selenium deficiency can occur endemically or a s a result of sustained TPN or restricted diets and has been asso ciated with cardiomyopathy and may exacerbate hypothyroidism. [place] nium toxicity is relatively rare. Excess intake of selenium can result in symptoms consistent with selenosis and include richardson rointestinal upset, hair loss, white blotchy nails, and mild nerve damage. See Compliance Statement B: [email or web address] Performed by [facility], [address] [place] [id number] [email or web address], Chris Daly MD, Lab. Director Specimen Blood Performing Organization Address City/[facility] Phon e Number [facility] [address] [place] [address] [facility] [address] [place] [address] Chromium, serum (09/23/2019 11:30 AM CDT) Chromium, serum 1.2 <=5.0 ug/L [facility] Comment: INTERPRETATION INFORMATION: Chromium, Serum Elevated results may be due to skin or collection-rela allegra contamination, including the use of a noncertified met al-free collection/transport tube. If contamination concerns e xist due to elevated levels of serum chromium, confirmation with a second specimen collected in a certified metal-free tube is r ecommended. Whole blood is the preferred specimen type for evaluat ing chromium metal ion release from svasw-aw-cntqz joint arthroplas ty. Whole blood chromium levels may be increased in asymptomatic patients with cxcfo-wk-dosgl prosthetics and should be consider ed in the context of the overall clinical scenario. The form of chromium greatly influences distribution. Trivalent chromium re sides in the plasma and is usually not of clinical importance. Hexa valent chromium is considered highly toxic; however, chromium serum levels should not be used to assess toxic exposures to hexavalent chromium as it is predominately taken up and retained by red blood cells. Symptoms associated with chromium toxicity vary based on route of exposure and dose, and may include dermatitis , impairment of pulmonary function, gastroenteritis, hepatic necros is, bleeding, and acute tubular necrosis. See Compliance Statement B: [email or web address] Performed by [facility], [address] [place] [id number] [email or web address], Chris Daly MD, Lab. Director Specimen Serum Performing Organization Address City/State/ZIP Code Phon e Number [facility] [address] [place] [phone] [facility] [address] [place] [id number] Vitamin D 25 hydroxy level (09/23/2019 11:30 AM CDT) [facility] Vitamin D, 56.3 30.0 - 150.0 DIONE NEVAREZ 25-hydroxy Comment: ng/mL HOSPITAL This assay reports the sum of 25-hydroxy vitamin D3 an d 25-hydroxy vitamin D2. Reference range: 0-17 years: Deficiency: less than 20ng/mL Optimum level: greater than or equal to 20 ng/mL. 18 years and older: Deficiency: less than 20ng/mL Insufficiency: 20-29 ng/mL Optimum Level: 30-80 ng/mL The assay reportable range is 3.4 155.9 ng/mL. Level s higher than 150 ng/mL may be associated with toxicity. If toxicity is clinically suspected and the reported r esult is >155.9 ng/mL,contact lab for alternative methods to obtain a definitive level. If separate quantitation of 25-hydroxy vitamin D3 and 25-hydroxy vitamin D2 is needed, please contact lab for alternative methods. Specimen Blood Performing Organization Address City/[facility]/ZIP Code Phon e Number [facility] DEPARTMENT OF PATHOLOGY AND [address] [place] [address] [address] Partial thromboplastin time, activated (09/23/2019 11:30 AM CDT) [facility] PTT 32.8 23.0 - 36.0 [facility] Comment: [facility] PTT therapeutic range for unfractionated heparin is 61.0-112.0 seconds which corresponds to Anti-Xa 0.3-0.7 U/ml. Specimen Blood Performing Organization Address [facility] Phon e Number [facility] DEPARTMENT OF PATHOLOGY AND [address] [place] [address] [address] Type and screen (09/23/2019 11:30 AM CDT) Pathologist Sig nature ABO grouping O [facility] Rh type POS [facility] Antibody screen (gel) NEG [facility] Specimen Blood Performing Organization Address [facility] Phon e Number [facility] DEPARTMENT OF PATHOLOGY AND [address] [place] [address] [address] Transferrin level (09/23/2019 11:30 AM CDT) Pathologist Sig nature Transferrin 152 (L) 200 - 360 mg/dL [facility] L Specimen Blood Performing Organization Address City/[facility] Phon e Number [facility] DEPARTMENT OF PATHOLOGY AND [address] [place] [address] [address] Vitamin E level, plasma or serum (09/23/2019 11:30 AM CDT) Alpha-tocopherol 15.2 5.5 - 18.0 [facility] mg/L Comment: mg/L Test developed and characteristics determined by [facility]. See Compliance Statement B: CAD [email or web address] Gamma-tocopherol <0.2 0.0 - 6.0 [facility] mg/L Comment: mg/L Performed by [facility], [address] [place] [id number] [email or web address], Chris Daly MD, Lab. Director Specimen Blood Performing Organization Address [facility] Phon e Number [facility] [address] [place] [address] [facility] [address] [place] [address] Thyroid stimulating hormone (09/23/2019 11:30 AM CDT)Only the most recent of2 resultswithin the time period is included. Pathologist Sig nature TSH 0.06 (L) 0.27 - 4.20 uIU/mL [facility] Specimen Blood Performing Organization Address [facility] Phon e Number [facility] DEPARTMENT OF PATHOLOGY AND [address] [place] [address] [phone] [address] Vitamin B6 level, plasma (09/23/2019 11:30 AM CDT) Vitamin B6 99.7 20.0 - 125.0 [facility] Comment: nmol/L INTERPRETIVE INFORMATION: Vitamin B6 (Pyridoxal 5-Phos phate) Pyridoxal 5'-phosphate measured in a specimen collecte d following an 8-hour or overnight fast accurately indicates vitam in B6 nutritional status. Non-fasting specimen concentration reflects recent vitamin intake. Test developed and characteristics determined by [facility]. See Compliance Statement B: [facility]/ CS Performed by [facility], [address] [place] [id number] [email or web address], Chris Daly MD, Lab. Director Specimen Blood Performing Organization Address [facility] Phon e Number [facility] [address] [place] [address] [facility] [address] [place] [address] Prealbumin level (09/23/2019 11:30 AM CDT) Pathologist Sig nature Prealbumin 18 16 - 32 mg/dL [facility] Specimen Serum Performing Organization Address City/[facility] Phon e Number [facility] DEPARTMENT OF PATHOLOGY AND [address] [place] [address] [phone] [address] Parathyroid hormone (09/23/2019 11:30 AM CDT) Pathologist Sig nature PTH 33 15 - 65 pg/mL [facility] Specimen Blood Performing Organization Address City/[facility] Phon e Number [facility] DEPARTMENT OF PATHOLOGY AND [address] [place] [address] [phone] [address] Iron level (09/23/2019 11:30 AM CDT) Pathologist Sig nature Iron level 23 (L) 59 - 158 ug/dL [facility] Specimen Blood Performing Organization Address City/[facility] Phon e Number [facility] DEPARTMENT OF PATHOLOGY AND [address] [place] [address] [phone] [address] Folate level (09/23/2019 11:30 AM CDT) Pathologist Sig nature Folate >20.0 4.8 - 24.2 ng/mL [facility] AL Specimen Serum Performing Organization Address City/[facility] Phon e Number [facility] DEPARTMENT OF PATHOLOGY AND [address] [place] [address] [phone] [address] Vitamin B12 level (09/23/2019 11:30 AM CDT) Vitamin B12 >1600 (H) 211 - 946 [facility] Comment: pg/mL HOSPITAL Significant overlap exists between normal and deficien cy states. However, most patients with deficiencies will have Ser um B12 <200 pg/mL. Specimen Serum Performing Organization Address City/[facility] Phon e Number [facility] DEPARTMENT OF PATHOLOGY AND [address] [place] [address] [phone] [address] Lipid panel (09/23/2019 11:30 AM CDT) Cholesterol 130 <200 mg/dL [facility] Triglycerides 85 <150 mg/dL [facility] HDL cholesterol 37 (L) >40 mg/dL [facility] LDL cholesterol 74Comment: Result <100 mg/dL [facility] obtained by direct SPIRITISM LDL measurement [facility] Comment: SPIRITISM Total Cholesterol (mg/dL) HOSPIT AL <200 Desirable 200-239 Borderline-high >=240 High Triglycerides (mg/dL) <150 Normal 150-199 Borderline-high 200-499 High >=500 Very high HDL Cholesterol (mg/dL) <40 Low (male) <40 Low (female) LDL Cholesterol (mg/dL) <100 Optimal 100-129 Near or above optimal 130-159 Borderline-high 160-189 High >=190 Very high Risk Catergories that modify LDL goals. Risk Catergories LDL goal (mg/d L) CHD and CHD risk equivalent <100 (10-year risk >20%) Multiple (2+) risk factors <130 (10-year risk =<20%) 0-1 risk factors <160 (<10-year risk) Defining levels of lipids in metabolic syndrome Triglycerides >=150 mg/dL HDL Cholesterol Men <40 mg /dL Women <40 mg/ dL Non-HDL cholesterol is a second target for therapy in persons with high triglycerides (>=200 mg/dL) Specimen Blood Performing Organization Address City/State/ZIP Code Phon e Number [facility] DEPARTMENT OF PATHOLOGY AND [address] [place] [phone] [facility] [address] [address] [place] Upper GI and Small Bowel Series (09/22/2019 2:11 PM CDT) Specimen Addenda Addendum by Alfredito Fontenot MD on 09/23/19 10:19 AM ADDENDUM #1 Addendum is offered for calcification. T here is no evidence of stenosis or luminal narrowing at the jejunojejunal j unction; rather, anastomosis is shown to be widely patent on prior CT sc an from outside facility, but obstructed by a large bezoar. Narrative Performed At EXAMINATION: [place] UGI GI AND SMALL BOWEL [facility] CLINICAL HISTORY: to evaluate GE and J J anastomosis COMPARISON: Upper GI 03/01/16; external CT abdomen pelvis 09/21/2019 TECHNIQUE: UPPER GI SERIES AND SMALL BOWEL FOLLOW TH ROUGH was performed with water soluble contrast. FLUOROSCOPIC TIME: 1.1 minutes. 13 f luoroscopic exposures. FINDINGS: Material Control Specialist films demonstrate left upper quadrant suture april e with multiple surrounding surgical clips. Additional right mid right pelvic suture line. Bowel gas pattern is nonobstructive. Visualized lung bases are clear. Status post Yamileth-en-Y gastric bypass. Moderate tertiar y contractions with delayed esophageal clearance. Esophagojejunal darleen stomosis is slightly above the level of diaphragm, unchanged geneva red to 2016 exam. Esophagojejunal anastomosis is patent wi thout evidence of stricture or leak. Yamileth limb is of normal caliber. At the jejunojejunal junction there is apparent luminal narro wing with suggestion of a rounded intraluminal mass (series 1 im age 14 and 18). Contrast flows distally into the small b owel. No visible filling of the pancreaticobiliar y limb. IMPRESSION: Status post Yamileth-en-Y bypass. Intraluminal filling def ect at the jejunojejunal anastomosis appears to occlude the pancr eaticobiliary limb without obstructing the Yamileth limb/distal small bowel. Comparison CT suggests fecalith/bezoar in the pancreaticobiliary limb at the J-J anast omosis. Patent esophagojejunal anastomosis. [facility]-[id number] Dictated and approved by vice president of nursing/fellow: Magdiel Mansfield M.D. I, Alfredito Fontenot MD, personally reviewed the images and resident's/fellow's findings and agree with the final report. Procedure Note [facility], Radiology Results Incoming - 09/22/2019 2:54 PM CDT EXAMINATION: [place] UGI GI AND SMALL BOWEL CLINICAL HISTORY: to evaluate GE and JJ anastomosis COMPARISON: Upper GI 03/01/16; external C T abdomen pelvis 09/21/2019 TECHNIQUE: UPPER GI SERIES AND SMALL MAE WEL FOLLOW THROUGH was performed with water soluble contrast. FLUOROSCOPIC TIME: 1.1 minutes. 13 flu oroscopic exposures. FINDINGS: Material Control Specialist films demonstrate left upper quadr ant suture line with multiple surrounding surgical clips. Additional right mid right pelvic suture line. Bowel gas pattern is nonobstructive. Visualized lung bases are clear. Status post Yamileth-en-Y gastric bypass. Mo derate tertiary contractions with delayed esophageal clearance. Esophagojejunal anastomosis is slightly above the level of diaphragm, unchanged compared to 2016 exam. Esophagojejunal anastomosis is patent wi thout evidence of stricture or leak. Yamileth limb is of normal caliber. At the jejunojejunal junction there is apparent luminal narrowing with suggestion of a rounded intraluminal mass (series 1 image 14 and 18). Contrast flows distally into the small bowel. No visible filling of the pancreaticobiliar y limb. IMPRESSION: Status post Yamileth-en-Y bypass. Intralumin al filling defect at the jejunojejunal anastomosis appears to occlude the pancreaticobiliary limb without obstructing the Yamileth limb/distal small bowel. Comparison CT suggests fecalith/bezoar in the pancreaticobiliary limb at the J-J anast omosis. Patent esophagojejunal anastomosis. [facility]-[id number] Dictated and approved by radiology resid ent/fellow: Aimee Mansfield M.D. I, Alfredito Fontenot MD, personally reviewed the images and resident's/fellow's findings and agree with the final report. Performing Organization Address City/State/ZIP Code Phon e Number [facility] [address] [place] [address] CT Chest Wo Contrast (09/22/2019 10:10 AM CDT) Specimen Narrative Performed At [facility] CLINICAL HISTORY: Pneumonia unresolved or complicated TECHNIQUE: Multiple axial images of the chest were obtained witho ut intravenous contrast. The lack of intravenous contrast reduces the sensitivity of detecting solid organ disease and evaluating vasculatu re. Sagittal and coronal computerized reformatted images were also obtained. DOSE REDUCTION: CT imaging was performed with iterativ e reconstruction technique and/or automated exposure cont rol to reduce radiation dose. COMPARISON: Single view chest from 09/22/2019 FINDINGS: 1.Consolidative airspace disease is again seen within the right upper lobe corresponding with findings on chest x-ray from rene santoyo today. Peribronchial nodular airspace disease is seen within the superior segment of the right lower lobe. The lef t lung is clear. 2.No pleural effusion. A calcified granuloma seen with in the left lung base. Debris/secretions are noted within the trachea. 3.No pneumothorax. 4.No mediastinal, hilar, or axillary lymphadenopathy. Calcified lymph nodes are seen within the right hilar re gion. 5.The ascending thoracic aorta is aneurysmal measuring 5.2 cm in greatest AP diameter. The mid aortic arch measures 3.8 cm. The descending thoracic aorta at the level of the pulmonar y arteries measures 2.7 cm and at the level of the hiatus measures 2.4 cm. A moderate amount of calcified ather osclerotic disease is noted. 6.The cardiac size is enlarged. No pericardial effusio n. Three-vessel coronary artery calcification is noted. Calcification of the aortic valve leaflets is suggested. 7.The pulmonary trunk is normal in calib er. 8.The thyroid is not visualized. 9.Osteopenia. No vertebral body height l oss. 10.Limited, noncontrast evaluation of the upper abdome n demonstrates the patient is status post esophagojejunostomy with resect ion of the proximal stomach. The residual stomach appears promine nt and filled with fluid and air. Fluid is also seen within the esophagus. IMPRESSION: 1.Right upper lobe pneumonia with early right lower lobe bronchiolitis. 2.Secretions and debris is seen within the trachea. Gi dary pneumonia, correlate for recent aspiration. 3.Aneurysmal dilatation of the ascending thoracic aort a measuring 5.2 cm in greatest AP diameter. 4.Cardiomegaly and three-vessel coronary artery calcification is noted. 5.Postsurgical changes within the upper abdomen are no allegra consistent with prior esophagojejunostomy with resection of the p roximal stomach. The residual stomach appears prominent a nd contains fluid and air. [facility]-[id number] Procedure Note Interface, Radiology Results [facility] - 09/22/2019 10:40 AM CDT EXAMINATION: CT CHEST WO CONTRAST CLINICAL HISTORY: Pneumonia unresolved or complicated TECHNIQUE: Multiple axial images of the chest were obtained without intravenous contrast. The lack of intravenous contrast reduces the sensitivity of detecting solid organ disease and evaluating vasculature. Sagittal and coronal computerized reformatted images were also obtained. DOSE REDUCTION: CT imaging was performed with iterative reconstruction technique and/or automated exposure control to reduce radiation dose. COMPARISON: Single view chest from 09/22/2019 FINDINGS: 1.Consolidative airspace disease is agai n seen within the right upper lobe corresponding with findings on chest x-ray from earlier today. Peribronchial nodular airspace disease is seen within the superior segment of the right lower lobe. The left lung i s clear. 2.No pleural effusion. A calcified granu ema seen within the left lung base. Debris/secretions are noted within the trachea. 3.No pneumothorax. 4.No mediastinal, hilar, or axillary lym phadenopathy. Calcified lymph nodes are seen within the right hilar region. 5.The ascending thoracic aorta is aneury smal measuring 5.2 cm in greatest AP diameter. The mid aortic arch measures 3.8 cm. The descending thoracic aorta at the level of the pulmonary arteries measures 2.7 cm and at the level of the hiatus measures 2.4 cm. A moderate amount of calcified ather osclerotic disease is noted. 6.The cardiac size is enlarged. No peric ardial effusion. Three-vessel coronary artery calcification is noted. Calcification of the aortic valve leaflets is suggested. 7.The pulmonary trunk is normal in calib er. 8.The thyroid is not visualized. 9.Osteopenia. No vertebral body height l oss. 10.Limited, noncontrast evaluation of th e upper abdomen demonstrates the patient is status post esophagojejunostomy with resection of the proximal stomach. The residual stomach appears prominent and filled with fluid and air. Fluid is also seen within the esophagus. IMPRESSION: 1.Right upper lobe pneumonia with early right lower lobe bronchiolitis. 2.Secretions and debris is seen within t he trachea. Given pneumonia, correlate for recent aspiration. 3.Aneurysmal dilatation of the ascending thoracic aorta measuring 5.2 cm in greatest AP diameter. 4.Cardiomegaly and three-vessel coronary artery calcification is noted. 5.Postsurgical changes within the upper abdomen are noted consistent with prior esophagojejunostomy with resection of the proximal stomach. The residual stomach appears prominent and contains fluid and air. [id number] Performing Organization Address City/State/ZIP Code Phon e Number [facility] [address] [place] [address] XR Chest 1 Vw Portable (09/22/2019 6:33 AM CDT) Specimen Narrative Performed At EXAMINATION: XR CHEST 1 VW PORTABLE [facility] CLINICAL HISTORY: Patient with recnt hx of pna in ms ddle of antibiotic course COMPARISON: January 14, 2012 chest IMPRESSION: Dense right upper lobe infiltrate suspicious for pneum onia. Short-term follow-up to document clearing recommend ed Mild pleural parenchymal thickening over the right apex Right lower lobe clear. Left lung clear. The Cardiomediastinal silhouette is normal in size. Mo derate vascular ectasia. Slight mediastinal shift to the right in keeping with some degree of volume loss right upper lobe [id number] Procedure Note Interface, Radiology Results Incoming - 09/22/2019 7:40 AM CDT EXAMINATION: XR CHEST 1 VW PORTABLE CLINICAL HISTORY: Patient with recnt hx of pna in middle of antibiotic course COMPARISON: January 14, 2012 chest IMPRESSION: Dense right upper lobe infiltrate suspic ious for pneumonia. Short-term follow-up to document clearing recommended Mild pleural parenchymal thickening over the right apex Right lower lobe clear. Left lung clear. The Cardiomediastinal silhouette is norm al in size. Moderate vascular ectasia. Slight mediastinal shift to the right in keeping with some degree of volume loss right upper lobe [id number] Performing Organization Address [facility] Phon e Number [address] [address] Urinalysis screen and microscopy, with reflex to culture (09/22/2019 6:10 AM CDT) Pathologist Sig [facility] Specimen site Clean catch [facility] Color, UA Yellow [facility] Appearance, UA Clear [facility] Specific gravity, 1.019 1.001 - 1.035 [facility] pH, UA 7.0 5.0 - 8.5 [facility] Protein, UA Negative Negative [facility] Glucose, UA Negative Negative [facility] Ketones, UA 1+ (A) Negative [facility] Bilirubin, UA Negative Negative [facility] Blood, UA Negative Negative [facility] Nitrite, UA Negative Negative [facility] Urobilinogen, UA <2.0 <[address]0 [facility] Leukocyte esterase, Negative Negative [facility] WBC, UA 1 0 - 1 /HPF [facility] RBC, UA 1 0 - 5 /HPF [facility] Bacteria, UA Few None seen [facility] Yeast, UA None seen [facility] Yeast with None seen [facility] pseudohyphae, HOSPITAL Specimen Urine Performing Organization Address City/[facility] Phon e Number [facility] DEPARTMENT OF PATHOLOGY AND [address] [place] [address] [phone] [address] Urine culture (09/22/2019 6:10 AM CDT) Pathologist [facility] Urine culture SEE COMMENTComment: [facility] Bacteriuria screen HOSPITAL negative. Specimen Performing Organization Address City/[facility] Phon e Number [facility] DEPARTMENT OF PATHOLOGY AND [address] [place] [address] [phone] [address] Respiratory pathogen panel (09/22/2019 3:00 AM CDT) Respiratory Negative for all pathogens tested: LISA Raymundo pathogen panel Negative for Adenovirus SPIRITISM Negative for Coronavirus HKU1 [facility] Negative for Coronavirus NL63 Negative for Coronavirus 229E Negative for Coronavirus OC43 Negative for Human Metapneumovirus Negative for Rhinovirus/Enterovirus Negative for Influenza A Negative for Influenza A/H1 Negative for Influenza A/H3 Negative for Influenza A/H1-2009 Negative for Influenza B Negative for Parainfluenza Virus 1 Negative for Parainfluenza Virus 2 Negative for Parainfluenza Virus 3 Negative for Parainfluenza Virus 4 Negative for Respiratory Syncytial Virus Negative for Bordetella pertussis Negative for Chlamydophila pneumoniae Negative for Mycoplasma pneumoniae This real-time PCR assay detects the presence of nucle ic acids (RNA or DNA) for the respiratory pathogens liste d. A result of "Not-detected" does not exclude the possib ility of the presence of one or more pathogens at concentrat ions less than the detectable limits of the assay. Comment: Specimen Information Specimen Source: Nares Specimen Site: Not specified Specimen Nares - Not specified Performing Organization Address City/[facility] Phon e Number [facility] DEPARTMENT OF PATHOLOGY AND [address] [place] [id number] Blood culture, aerobic & anaerobic (09/22/2019 1:00 AM CDT)Only the most recent of2 resultswithin the time period is included. [facility] Blood culture No growth after 5 days of incubation. [facility] isolate Comment: HOSPITAL Specimen Information Specimen Source: Blood Specimen Site: Forearm, left Specimen Blood - Forearm, left Performing Organization Address City/[facility] Phon e Number [facility] DEPARTMENT OF PATHOLOGY AND [address] [place] [address] [phone] [address] T4, free (09/22/2019 12:45 AM CDT) Pathologist [facility] T4, free 1.7 0.9 - 1.7 ng/dL [facility] Specimen Blood Performing Organization Address [facility] Phon e Number [facility] DEPARTMENT OF PATHOLOGY AND [address] [place], [place] [phone] [address] [address] [address] Abd/Pelvic External Study (09/21/2019 4:02 PM CDT) Specimen Narrative Performed At This exam was not acquired at a Method[facility] t facility and has not been [facility] interpreted by a [employer] Provider. T he exam was imported into our imaging system. 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
--- OUTSIDE RECORDS SUMMARY | 2020-03-20 11:49 | XMS REPORT | Continuity of Care Document ---
:1935 Author Organization [facility] t Address [address] [place] [address] Care Team Providers Name Role Phone Dominick Hdez MD Primary Care Physician Loc BOJORQUEZ T Attending Clinician Lazaro DOWNS Attending Clinician Unavailable Gisella BOJORQUEZ L. Attending Clinician GISELLA Admitting Clinician Unavailable Payers Payer Name Policy Type Policy Effective Date Expiration Date Sour ce Number MEDICAREMEDICARE PART [id number] 1998 beatriz A AND 00:00:00 [facility] [id number] 1997 [facility] AETNAAETNA [id number] 2000 [facility] 00:00:00 Restoration QNDITZALWnx83351/07/19 00-PresentIndemnity Problems Condition Condition Condition Status Onset Resolution Last Treating Co mments Source Name Details Category Date Date Treatment Clinician Date NSVT NSVT Disease Active [place] (nonsustai (nonsustai 09-25 Me thodi salvador salvador 00:00: st ventricula ventricula 00 r r tachycardi tachycardi a) a) Constipati Constipati Disease Active [place] on on 09-25 Method[facility] 00:00: st 00 Hypothyroi Hypothyroi Disease Active [place] dism dism 09-25 Method[facility] 00:00: st 00 Normocytic Normocytic Disease Active [place] anemia anemia 09-25 Methodi 00:00: st 00 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 00 Hypoalbumi Hypoalbumi Disease Active H ouronnie nemia due nemia due 09-25 Meth nataly to to 00:00: st protein-ca protein-ca 00 carlton carlton malnutriti malnutriti on on Abdominal Abdominal Disease Active Shorty ston pain pain 09-21 Methodi 00:00: st 00 Small Small Disease Active [place] bowel bowel 09-21 Methodi obstructio obstructio 00:00: st n n 00 Bezoar Bezoar Disease Active [place] 09-21 Methodi 00:00: st 00 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 - Me thodi carlton vincent 00:00: st malnutriti malnutriti 00 on on Status Status Disease Active [place] 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 GERD GERD Disease Active [place] (gastroeso (gastroeso 5-17 Me thodi phageal phageal 00:00: st reflux reflux 00 disease) disease) Pharyngoes Pharyngoes Disease Active H jose miguel ophageal ophageal 5-17 Method i dysphagia dysphagia 00:00: st 00 Status Status Disease Active [place] post post 5-17 Methodi laparoscop laparoscop 00:00: st ic ic 00 fundoplica fundoplica tion tion History of Past Illness Condition Condition Condition Status Onset Resolution Last Treating Co mments Source Name Details Category Date Date Treatment Clinician Date Aspiration Aspiration Disease Resolve 2019-09-24 2019-09-24 [place] pneumonia pneumonia d 09-21 00:00:00 08:17:43 Methodi 00:00: st 00 Allergies, Adverse Reactions, Alerts Allergy Allergy Status Severity Reaction(s) Onset Inactive Treating Comm ents Source Name Type Date Date Clinician Philippedaolya Propensi Active GI Per Marcia morrison mayela Hcl ty to Intolerance 09-22 patient Met hodi adverse 00:00: report st reaction 00 s to drug Family History Family Member Diagnosis Comments Start Date Stop Date Source Natural father GI problems Kiko ozuna Maternal grandfather No Known Problems Kiko Katz Maternal grandmother No Known Problems Kiko Katz Natural mother Breast cancer Kiko Katz Paternal grandfather No Known Problems Kiko Katz Paternal grandmother No Known Problems Kiko Katz Natural sister COPD Kiko Ga thodist Social History Social Habit Start Date Stop Date Quantity Comments Source Sex Assigned At [place] M ethodist Cigarettes smoked 2019-09-26 2019-09-26 Kiko Katz current (pack per 00:00:00 00:00:00 day) - Reported Cigarette 2019-09-26 2019-09-26 Kiko Wong ist pack-years 00:00:00 00:00:00 Alcohol intake 2019-09-26 2019-09-26 Current Kiko Dunbar thodist 00:00:00 00:00:00 non-drinker of alcohol (finding) Smoking Status Start Date Stop Date Source Former smoker 2019-09-26 00:00:00 2019-09-26 00:00:00 Kiko Katz Medications Ordered Filled Start Stop Current Ordering Indication Dosage Frequency Signature Comments Components Source Medication Medication Date Date Medication? Clinician (SIG) Name Name levothyroxi 2020- No 125ug QD Take 125 [place] ne 3-30 03-30 mcg by Methodi (SYNTHROID, 14:55: 00:[address] LEVOXYL) 22 :00 every 125 mcg morning. tablet amoxicillin 2019-0 2020- No 500mg Q.5D Take 500 Hoover (AMOXIL) 3-30 03-30 mg by Methodi 500 MG 14:55: 00:[address] capsule 22 :00 (two) times a day. Amox-Clav 500-125mg per tablet omeprazole 2019-0 Yes 40mg Q.5D Take 40 mg [place] (PriLOSEC) 3-30 by mouth 2 Met hodi 40 MG 14:55: (two) st capsule 18 times a day. travoprost 2020-0 Yes 1[drp] QD 1 drop Shorty ston (TRAVATAN-Z 3-30 nightly. Meth nataly ) 0.004 % 14:55: st 18 promethazin 2020-0 Yes 12.5mg Take 1 [place] e 3-30 tablet Methodi (PHENERGAN) 00:00: (12.[address] 12.5 MG 00 total) by tablet mouth as needed for nausea or vomiting (before with meals). calcium 2020-0 Yes 1{tbl} [id number] Take 1 Hoover citrate-vit 09-26 [id number] tablet by Methodi mayer D2 00:00: 3D mouth 3 st 250-100 00 (three) mg-unit per times a tablet day. cyanocobala 2020-0 2020- No 500ug QD Take 1 [place] min (B-12 09-26-28 tablet Methodi DOTS) 500 00:00: 23:59 ([address] MCG tablet 00 :00 total) by mouth daily for 120 days. lactulose 2019-0 2020- No 10g Q.5D Take 15 mL [place] 20 gram/30 09-26- (10 g Methodi mL solution 00:00: 23:59 total) by st 00 :00 mouth 2 (two) times a day for 60 days. famotidine 2019-0 2020- No 20mg Q.5D Take 1 [place] (PEPCID) 20 09-26 tablet (20 M ethodi MG tablet 00:00: 23:59 mg total) st 00 :00 by mouth 2 (two) times a day for 30 days. docusate 2020-0 2020- No 100mg Q.5D Take 1 [place] sodium 09-26 capsule Methodi (Colace) 00:00: 23:59 ([address] 100 MG 00 :00 total) by capsule mouth 2 (two) times a day for 30 days. levothyroxi 2019-0 2020- No 112ug QD Take 1 Ho beatriz ne 09-26 tablet Methodi (Synthroid) 00:00: 23:59 (112 mcg s t 112 mcg 00 :00 total) by tablet mouth daily for 30 days. multivitami 2020-0 2020- No 1{tbl} QD Take 1 [place] with 09-26 tablet by Methodi minerals 00:00: 23:[address] tablet 00 :00 daily for 30 days. ferrous 2020-0 2020- No 325mg QD Take 1 [place] sulfate 09-26 tablet Methodi (FerrouSul) 00:00: 23:59 ([address] 325 (65 FE) 00 :00 total) by MG tablet mouth daily with breakfast for 30 days. ranitidine 2019-0 2020- No 150mg Q.5D Take 150 [place] (ZANTAC) 09-20 03-24 mg by Methodi 150 MG 23:18: 00:[address] tablet 00 :00 (two) times a day. mirtazapine 15mg QD Take 15 mg Kiko (REMERON) 09-20 by mouth Metho di 15 MG 23:17: 00:[address] tablet 36 :00 Vital Signs Vital Name Observation Time Observation Value Comments Source Systolic blood 2019-09-27 12:42:21 133 mm[Hg] Marcia n [facility]oration pressure Diastolic blood 2019-09-27 12:42:21 64 mm[Hg] Leila on Restoration pressure Heart rate 2019-09-27 12:42:21 94 /min Kiko Katz Body temperature 2019-09-27 12:42:21 36.44 Margaret Carrie campa [facility]oration Respiratory rate 2019-09-27 12:42:21 19 /min Carrie Katz Oxygen saturation in 2019-09-27 12:42:21 96 /min Kiko Katz Arterial blood by Pulse oximetry Body height 2019-09-23 13:00:00 175.3 cm Kiko Katz Body weight 2019-09-23 13:00:00 62.4 kg Kiko Katz BMI 2019-09-23 13:00:00 20.32 kg/m2 Kiko Katz Procedures Procedure Date / Time Performing Clinician Source Performed XR ABDOMEN 2 VW AP W 2019-09-27 08:56:20 Cm Francois UPRIGHT AND/OR DECUBITUS HC COMPLETE BLD COUNT 2019-09-27 04:30:00 Joseph Monterroso Restoration W/AUTO DIFF COMPREHENSIVE METABOLIC 2019-09-27 04:00:00 Joseph Monterroso [facility] PANEL MAGNESIUM LEVEL 2019-09-27 04:00:00 Joseph Monterroso Meth odist PHOSPHORUS LEVEL 2019-09-27 04:00:00 Joseph Monterroso Met hodist ESTIMATED GFR 2019-09-27 04:00:00 Mayra Beltre Met hodist ECG 12-LEAD 2019-09-26 10:13:37 Joseph Monterroso Meth odist HC COMPLETE BLD COUNT 2019-09-26 04:05:00 Mayra Beltre Restoration W/AUTO DIFF COMPREHENSIVE METABOLIC 2019-09-26 04:00:00 Mayra Beltre [facility] PANEL ESTIMATED GFR 2019-09-26 04:00:00 GisellaMayra hong Met hodist PHOSPHORUS LEVEL 2019-09-26 04:00:00 Gisella Mayra Hoover Me thodist MAGNESIUM LEVEL 2019-09-26 04:00:00 Mayra BeltreEdy Hoover Met hodist XR ABDOMEN 2 VW AP W 2019-09-25 10:40:30 Marcia Cummings Restoration UPRIGHT AND/OR DECUBITUS Roque HC COMPLETE BLD COUNT 2019-09-25 04:30:00 Joseph Monterroso Restoration W/AUTO DIFF MAGNESIUM LEVEL 2019-09-25 04:00:00 Radha English Met hodist PHOSPHORUS LEVEL 2019-09-25 04:00:00 Jerald Englisha Hoover Me thodist BASIC METABOLIC PANEL 2019-09-25 04:00:00 AmadorJerald swensona Carriet on Restoration ESTIMATED GFR 2019-09-25 04:00:00 Mayra BeltreEdy Hoover Met hodist MAGNESIUM LEVEL 2019-09-24 04:43:00 AmadorRadha Met hodist PHOSPHORUS LEVEL 2019-09-24 04:43:00 AmadorJeralda Hoover Me thodist BASIC METABOLIC PANEL 2019-09-24 04:43:00 AmadorJeralda Carriet on Restoration HC COMPLETE BLD COUNT 2019-09-24 04:43:00 Joseph Monterroso [facility]oration W/AUTO DIFF ESTIMATED GFR 2019-09-24 04:43:00 GisellaMayra hong Met hodist CHROMIUM, SERUM 2019-09-23 11:30:00 PaekDominick Restoration FOLATE LEVEL 2019-09-23 11:30:00 PaeDominick thompson [facility] IRON LEVEL 2019-09-23 11:30:00 PaeDominick thompson LIPID PANEL 2019-09-23 11:30:00 Dominick Sánchezist PARATHYROID HORMONE 2019-09-23 11:30:00 Dominick Sánchez [facility] THYROID STIMULATING 2019-09-23 11:30:00 Dominick Sánchez [facility] HORMONE SELENIUM, SERUM 2019-09-23 11:30:00 Paek, Dominick Katz VITAMIN A LEVEL, PLASMA OR 2019-09-23 11:30:00 Paek, Dominick Katz SERUM VITAMIN B12 LEVEL 2019-09-23 11:30:00 Paek, Dominick morrison [facility]oration VITAMIN B6 LEVEL, PLASMA 2019-09-23 11:30:00 Paek, Dominick Katz VITAMIN D 25 HYDROXY LEVEL 2019-09-23 11:30:00 Paek, Dominick Katz VITAMIN E LEVEL, PLASMA OR 2019-09-23 11:30:00 Paek, Dominick Katz SERUM ZINC LEVEL, SERUM 2019-09-23 11:30:00 Paek, Dominick morrison [facility] TRANSFERRIN LEVEL 2019-09-23 11:30:00 Paek, Dominick morrison [facility] PARTIAL THROMBOPLASTIN 2019-09-23 11:30:00 Mayra Beltre [facility] TIME (PTT) TYPE AND SCREEN 2019-09-23 11:30:00 Mayra Beltre Met hodist PREALBUMIN LEVEL 2019-09-23 11:30:00 PaekDominick COPPER LEVEL, SERUM 2019-09-23 11:30:00 Dominick Sánchez Restoration XR ABDOMEN 2 VW AP W 2019-09-23 09:24:35 Dominick Sánchez [facility] UPRIGHT AND/OR DECUBITUS HC COMPLETE BLD COUNT 2019-09-23 06:30:00 Radha English on Restoration W/AUTO DIFF MAGNESIUM LEVEL 2019-09-23 04:00:00 Radha English Met hodist PHOSPHORUS LEVEL 2019-09-23 04:00:00 Radha English Me thodist BASIC METABOLIC PANEL 2019-09-23 04:00:00 Radha English on Restoration ESTIMATED GFR 2019-09-23 04:00:00 Mayra Beltre Met hodist FL UGI GI AND SMALL BOWEL 2019-09-22 14:11:[address] CHEST WO CONTRAST 2019-09-22 10:10:42 Radha English XR ABDOMEN 2 VW AP W 2019-09-22 10:01:14 Dominick Sánchez UPRIGHT AND/OR DECUBITUS XR CHEST 1 VW PORTABLE 2019-09-22 06:33:02 Leonidas Bauer on Restoration ECG 12-LEAD 2019-09-22 06:21:41 Leonidas Bauer Meth sunday URINE CULTURE 2019-09-22 06:10:00 Mayra Beltre Met rajat URINALYSIS SCREEN AND 2019-09-22 06:10:00 Leonidas Bauer MICROSCOPY, WITH REFLEX TO CULTURE RESPIRATORY PATHOGEN PANEL 2019-09-22 03:00:00 Leonidas Bauer BLOOD CULTURE, AEROBIC & 2019-09-22 01:00:00 Leonidas Bauer ANAEROBIC BLOOD CULTURE, AEROBIC & 2019-09-22 00:45:00 Leonidas Bauer ANAEROBIC HC COMPLETE BLD COUNT 2019-09-22 00:45:00 Leonidas Bauer W/AUTO DIFF COMPREHENSIVE METABOLIC 2019-09-22 00:45:00 Leonidas Bauer PANEL MAGNESIUM LEVEL 2019-09-22 00:45:00 Leonidas Bauer PHOSPHORUS LEVEL 2019-09-22 00:45:00 Leonidas Bauer THYROID STIMULATING 2019-09-22 00:45:00 Leonidas Bauer HORMONE T4, FREE 2019-09-22 00:45:00 Leonidas Bauer Meth odprakash ESTIMATED GFR 2019-09-22 00:45:[address] ABD/PELVIC EXTERNAL 2019-09-21 16:02:00 Mayra Beltre STUDY Plan of Care Planned Activity Planned Date Details Comments Source Future Scheduled 2020-02-29 INFLUENZA VACCINE Marcia Katz Test 00:00:00 [code = INFLUENZA VACCINE] Future Scheduled 2000 65+ PNEUMOCOCCAL Kiko Katz Test 00:00:00 VACCINE (1 of 1 - PPSV23) [code = 65+ PNEUMOCOCCAL VACCINE (1 of 1 - PPSV23)] Future Scheduled 1983 SHINGLES VACCINES (#1) H jose miguel Wongist Test 00:00:00 [code = SHINGLES VACCINES (#1)] Encounters Start End Encounter Admission Attending Care Care Encounter Source Date/Time Date/Time Type Type Clinicians Facility Department ID 2019-09-21 2019-09-27 Inpatient GISELLA [facility] [id number] [place] 00:00:00 00:00:00 MAYRA [address] Results Test Description Test Time Test Comments Results Result Sourc e Comments XR Abdomen 2 Vw 2019-08-31 Interface, [place] Ap W Upright 0 Radiology Results Metho dist And/Or Decubitus 08:58:33 - 09/27/2019 9:01 AM CDTEXAMINATION: XR ABDOMEN 2 VW AP W UPRIGHT AND OR DECUBITUSCLINICAL HISTORY: SBOCOMPARISON: 09/25/2019FINDINGS:XR ABDOMEN 2 VW AP W UPRIGHT AND OR DECUBITUS images are submitted.There is mild gastric distention. Minimal small bowel dilatation is present. Moderate colonic fecal retention is present. Bowel gas is scattered throughout the abdomen. IMPRESSION:1. There is no focal bowel obstruction.2. Minimal gastric distention is present.3. Extensive colonic fecal retention is present.[id number] Comprehensive metabolic panel 2019-09-27 05:34:03 Test Item Value Reference Range Interpretation Comme nts Sodium (test code = 2951-2) 139 135- 148 mEq/L Potassium (test code = 2823-3) 4.1 3.5- 5.0 mEq/L Chloride (test code = 2075-0) 105 98- 112 mEq/L CO2 (test code = 2027-9) 24 24- 31 mEq/L Anion gap (test code = 65956-0) 10@ANIO 7- 15 mEq/L BUN (test code = 3094-0) 6 mg/dL 8-23 L Creatinine (test code = 2160-0) 0.90 mg/dL 0.7-1.2 Glucose (test code = 2345-7) 110 mg/dL 65-99 H Calcium (test code = 76927-3) 8.7 mg/dL 8.8-10.2 L Protein (test code = 2885-2) 6.5 g/dL 6.3-8.3 - 4.6-7.0 g/dL1 week 4. 4-7.6 g/dL7 months-1y ear 5.1-7.3 g/d L1-2 years 5.6-7.5 g/dL>3 years 6.0 -8.0 g/bY42-251 6.3-8.3 g/d L Albumin (test code = 1751-7) 2.2 g/dL 3.5-5 L A/G ratio (test code = 1759-0) 0.5 0.7-3.8 L Alkaline phosphatase (test code = 75 U/L 40-129 6768-6) AST (test code = 1920-8) 18 U/L 10-50 ALT (test code = 1742-6) 28 U/L 5-50 Total bilirubin (test code = 0.4 mg/dL 0-1.2 1974-07) Lab Interpretation (test code = Abnormal 08643-5) Kiko WongistMagnesium [id number] 05:34:03 Test Item Value Reference Range Interpretation Comments Magnesium (test code = 38825-8) 2.2 mg/dL 1.6-2.4 Kiko MethodistEstimated [id number] 05:34:02 Test Item Value Reference Range Interpretation Comments Estimated GFR (test 77 mL/min/1.73 m2 [facility] code = 5488) InterpretationG 1 >=90 Normal or highG2 60-89 Mildly jbscfnkdoU6m 45-59 Mildly to mode rately zmaltxahfJ4x 30-44 Moderately to severely decreasedG4 15-29 Severely decre asedG5 <15 Kidn ey failureThe eGFR was calculated [place] the Chronic Kidney Disease Epidemiology Co llaboration (CKD-EPI) equat ion. Interpretation is based on recommendations of the National Kidney Foundation-Kidn ey Disease Outcomes Qualit y Initiative (NKF-KDOQI) pub lished in 2014. Kiko MethodistPhosphorus [id number] 05:34:01 Test Item Value Reference Range Interpretation Comments Phosphorus (test code = 2777-1) 3.1 mg/dL 2.4-4.5 Kiko WongistCBC with platelet and [id number] 05:11:09 Test Item Value Reference Range Interpretation Comments WBC (test code = 45286-5) 7.73 4.50- 11.00 k/uL RBC (test code = 79318-5) 3.79 m/uL 4.4-6 L HGB (test code = 718-7) 11.8 g/dL 14-18 L HCT (test code = 4544-3) 36.5 % 41-51 L MCV (test code = 787-2) 96.3 fL 82-100 MCH (test code = 785-6) 31.1 pg 27-34 MCHC (test code = 786-4) 32.3 g/dL 31-37 RDW - SD (test code = 45.7 fL 37-55 49700-3) MPV (test code = 74847-2) 10.6 fL 8.8-13.2 Platelet count (test code 357 150- 400 k/uL = 73923-6) Nucleated RBC (test code 0.00 /100 WBC = 97926-6) Neutrophils (test code = 70.0 % 39-69 H 11278-8) Lymphocytes (test code = 15.1 % 25-45 L 73150-0) Monocytes (test code = 11.8 % 0-10 H 13090-4) Eosinophils (test code = 2.2 % 0-5 15023-7) Basophils (test code = 0.3 % 0-1 38505-5) Immature granulocytes 0.6 % 0-1 "Immat ure (test code = 40878-5) granul ocytes" (promyelocytes, myelocytes, metamyelocytes) Lab Interpretation (test Abnormal code = 03816-8) [place] MethodistBlood culture, aerobic & [id number] 03:33:10 Test Item Value Reference Range Interpretation Comments Blood culture No growth Specimen isolate (test after 5 days InformationSpe cimen code = 600-7) of Source: BloodS pecimen incubation. Site: Forearm, left [place] MethodistECG 12 [id number] 20:50:37 Test Item Value Reference Range Interpretation Comments Ventricular rate (test 79 code = 253) Atrial rate (test code = 79 255) OK interval (test code = 180 266) QRSD interval (test code 76 = 260) QT interval (test code = 354 264) QTC interval (test code = 405 265) P axis 1 (test code = 79 267) QRS axis 1 (test code = 43 268) T wave axis (test code = 63 270) EKG impression (test code Normal sinus = 273) rhythm-Septal infarct , age undetermined-Electro nically Signed By Alexis Mhaan MD ([id number]) on 09/26/2019 8:50:36 PM [place] MethodistVitamin E level, plasma or [id number] 15:31:45 Test Item Value Reference Range Interpretation Comments Alpha-tocopherol 15.2 mg/L 5.5-18 Test develo ped and mg/L (test code = characteri stics determined 1823-4) by [employer]. See Compliance Stat ement B: Departing/ Gamma-tocopherol <0.2 0-6 Performed b y [facility] mg/L (test code = Laboratori es,[address] [address]-3) [facility],[place] [address] bcb .Departing , Chris Daly MD, Lab. Director [place] MarvinistVitamin A level, plasma or [id number] 15:31:31 Test Item Value Reference Range Interpretation Comments Vitamin A (retinol) 0.30 mg/L 0.3-1.2 (test code = 2923-1) Retinyl palmitate <0.02 0-0.1 (test code = 52348-9) Vitamin A Normal Test developed and interpretation (test charact eristics code = 68931-0) determined b y [employer] [facility]. S Compliance Stat ement B: Departing/CSP erforme d by [employer],[address] [facility] [address] tnw .[place], Chris Lemus MD, Lab. Direct or [place] MethodistVitamin B6 level, [id number] 12:16:53 Test Item Value Reference Range Interpretation Comments Vitamin B6 (test 99.7 nmol/L 20-125 INTERPRETIV E INFORMATION: code = 51280-2) Vitamin B6 ( Pyridoxal 5-Phosphate)Pyr idoxal 5'-phosphate me asured in a specimen ahmet ected following an 8- hour or overnight fast accurately indicates vitam in B6 nutritional sta tus. Non-fasting spe cimen concentration r eflects recent vitamin intake.Test dev eloped and characteristics determined by [facility]. S ee Compliance Stat ement B: Departing/CSP erformed by VERA [facility],[address] [place], [place] [address] pof .chan.c Chris granda do, MD, Lab. Director [place] MethodistBasic metabolic [id number] 06:12:35 Test Item Value Reference Range Interpretation Comments Sodium (test code = 2951-2) 140 135- 148 mEq/L Potassium (test code = 2823-3) 4.2 3.5- 5.0 mEq/L Chloride (test code = 2075-0) 106 98- 112 mEq/L CO2 (test code = 8-9) 23 24- 31 mEq/L L Anion gap (test code = 50633-4) 11@ANIO 7- 15 mEq/L BUN (test code = 3094-0) 6 mg/dL 8-23 L Creatinine (test code = 2160-0) 0.96 mg/dL 0.7-1.2 Glucose (test code = 2345-7) 91 mg/dL 65-99 Calcium (test code = 85102-4) 8.7 mg/dL 8.8-10.2 L Lab Interpretation (test code = Abnormal 32809-6) [place] MethodistCopper level, [id number] 23:42:23 Test Item Value Reference Range Interpretation Comments Copper (test code 139.7 ug/dL 70-140 INTERPRETI VE INFORMATION: = 2939-7) Copper, Serum o r PlasmaElevated results may be due to s kin or collection-rela allegra contamination, including the use of a no ncertified metal-free collection/driver sport tube. If contam ination concerns exist due to elevated levels of serum/plasma co pper, confirmation wi th a second specimen collected in a certified metal-free tube is recomme nded.Serum copper may be e levated with infection, inflammation, s tress, and copper suppleme ntation. In females, ra vated copper may also be caused by oral contrac eptives and (concentrations may be elevated up to 3 times normal during t he third trimester).Test developed and characteris tics determined by [facility]. S ee Compliance Stat ement B: Departing/CSP erformed by [employer],[address],[place] [address] cap .[email or web address] Chris granda do, MD, Lab. Director Kiko WongistChromium, [id number] 23:35:01 Test Item Value Reference Range Interpretation Comments Chromium, serum 1.2 ug/L <=5.0 INTERPRETATI ON INFORMATION: (test code = Chromium, Serum Elevated 5622-6) results may be due to skin or collection-r elated contamination, including the use of a no ncertified metal-free collection/driver sport tube. If contaminatio n concerns exist due to el evated levels of serum chromium, confirmation wi th a second specimen collec allegra in a certified metal -free tube is recommended. Whole blood is the preferre d specimen type for evalua ting chromium metal ion release from metal-on-m etal joint arthroplasty. W hole blood chromium levels may be increased in as ymptomatic patients with shchf-op-tzcpe prosthetics and should be c onsidered in the context of the overall clinical scenar io. The form of chromium gre atly influences dist ribution. Trivalent chrom ium resides in the plasma a nd is usually not of clinical importance. Hex avalent chromium is con sidered highly toxic; h owever, chromium serum levels should not be u sed to assess toxic ex posures to hexavalent master esthetician mium as it is predominatel y taken up and retained by red blood cells. Symptoms associated with chromium t oxicity vary based on route of exposure and dose, and m ay include dermatitis, imp airment of pulmonary funct ion, gastroenteritis , hepatic necrosis, bleed ing, and acute tubular n ecrosis. See Compliance Stat ement B: www.Departing /CSPerformed by [employer],[address],[place] [id number] www .[employer] Chris MD, Lab. Director Kiko Evanselenium, [id number] 23:35:01 Test Item Value Reference Range Interpretation Comments Selenium, serum 151.8 ug/L 23-190 INTERPRETIVE INFORMATION: (test code = Selenium, [place] [address]-3) PlasmaElevated results may be due to conta mination from skin or ot her collection-rela allegra issues, including the u se of a noncertified me basia-free collection/driver sport tube. If contaminatio n concerns exist due to el evated levels of serum /plasma selenium, confi rmation with a second specim en collected in a certified metal-free tube is recomme nded.Serum selenium levels can be used in the determin ation of deficiency or t oxicity. Plasma and seru m contains 75 percent of t he selenium measured in who le blood and reflects recent dietary intake. Seleniu m deficiency can occur endem ically or as a result of zhen tained TPN or restricted d iets and has been associated with cardiomyopathy and may exacerbate hypo thyroidism. Selenium toxici ty is relatively rare . Excess intake of selen ium can result in sympt oms consistent with selenosis and include gastrointestina l upset, hair loss, whit e blotchy nails, and mild nerve damage. See [employer] pliance Statement B: www.Departing /CSPerformed by VERA lozada,[address] [facility], [place] [address] hnd .Departing , Chris Daly MD, Lab. Director [facility] level, [id number] 23:35:01 Test Item Value Reference Range Interpretation Comments Zinc (test code 77.5 ug/dL 60-120 INTERPRETIVE INFORMATION: = 07200-0) Zinc, Serum or PlasmaElevated results may be due to skin or collection-rela allegra contamination, including the use of a no ncertified metal-free collection/driver sport tube. If contaminatio n concerns exist due to el evated levels of serum /plasma zinc, confirmat ion with a second specimen collected in a certified metal-free tube is recommended.Cir culating zinc concentrat ions are dependent on al bumin status and are depress ed with malnutrition. Zinc may also be lowered with infection, infl ammation, stress, oral contraceptives, and . Zin c may be elevated with z inc supplementation or fasting. Elevated zinc concentrations may interfere with copper absorption. Tracy t developed and characteris tics determined by [facility]. S ee Compliance Stat ement B: Departing/CSP erformed by [facility],[address], [place] [address] sgw .Departing , Chris Daly MD, Lab. Director Kiko KatzVitamin D 25 hydroxy [id number] 17:42:27 Test Item Value Reference Range Interpretation Comments Vitamin D, 56.3 ng/mL 30-150 This assay repo rts the 25-hydroxy (test sum of 25-h ydroxy code = 1988-) vitamin D3 an d 25-hydroxy caroline min D2. Reference range :0-17 years:Deficienc y: less than 20ng/mLOpt imum level: greater than or equal to 20 ng/ mL.18 years and older:Deficienc y: less than 20ng/mLInsuffic iency: 20-29 ng/mLOpti mum Level: 30-80 ng /mLThe assay reportabl e range is 3.4 155.9 n g/mL. Levels higher t arnold 150 ng/mL may be as sociated with toxicity.I f toxicity is cli nically suspected and t he reported result is >155.9 ng/mL,co ntact lab for alternative methods to obtain a def initive level.If separa te quantitation of 25-hydroxy caroline min D3 and 25-hydroxy vitamin D2 is needed, p teofilo contact lab for alternative met hods. Kiko MethodistType and [id number] 14:32:00 Test Item Value Reference Range Interpretation Comments ABO grouping (test code = 883-9) O Rh type (test code = 20573-9) POS Antibody screen (gel) (test code = NEG 890-4) [facility] MethodistPrealbumin [id number] 14:05:12 Test Item Value Reference Range Interpretation Comments Prealbumin (test code = 6793-4) 18 mg/dL 16-32 [facility] MethodistVitamin B12 [id number] 13:48:50 Test Item Value Reference Range Interpretation Comments Vitamin B12 (test code = >1600 211-946 H Sig nificant overlap 2132-9) exists between normal and deficiency states.However, most patients with deficiencies wi ll have Serum B12 <200 pg/mL. Lab Interpretation (test Abnormal code = 68942-5) [facility] MethodistFolate [id number] 13:40:52 Test Item Value Reference Range Interpretation Comments Folate (test code = 2284-8) >20.0 4.8-24.2 [facility] MethodistTransferrin [id number] 13:38:51 Test Item Value Reference Range Interpretation Comments Transferrin (test code = 3034-6) 152 mg/dL 200-360 L Lab Interpretation (test code = Abnormal 90358-8) [facility] MethodistPartial thromboplastin time, [id number] 13:35:20 Test Item Value Reference Range Interpretation Comments PTT (test code = 32.8 23.0- 36.0 [place] [address]-1) unfractionated heparin is61.0-112.0 se conds which corresponds to Anti-Xa0.3-0.7 U/ml. [facility] MethodistThyroid stimulating [id number] 13:34:23 Test Item Value Reference Range Interpretation Comments TSH (test code = 3016-3) 0.06 0.27- 4.20 uIU/mL L Lab Interpretation (test code = Abnormal 50523-0) [facility] MethodistLipid [id number] 13:26:34 Test Item Value Reference Interpretation Comments Range Cholesterol (test 130 mg/dL <200 code = 2093-3) Triglycerides (test 85 mg/dL <150 code = 2571-8) HDL cholesterol 37 mg/dL >40 L (test code = 2085-9) LDL cholesterol 74 mg/dL <100 Result obtai salvador by direct (test code = 2089-1) LDL raul surement Lipid panel SeeBelow Total Cholester ol (mg/dL) interpretation (test < 200 code = 08397-2) Desirable 200-239 Borderline -high >=240 Hi gh Triglyceri antoinette (mg/dL) <150 No rmal 150-199 Borderline-high 200-499 High >=500 Very high HDL Choles terol (mg/dL) <40 Low (male) < 40 Low (female) L DL Cholesterol (mg /dL) <100 Optimal 1 00-129 Near or above o ptimal 130-159 Borderline-high 160-189 High >=190 Very high Risk Cat ergories that modify LDL goals.Risk Catergories LDL goal (mg/dL )CHD and CHD risk equiva lent <100 (10-year risk >20%)Multiple ( 2+) risk factors < 130 (10-year risk = <20%)0-1 risk factors <160 (<10-ye ar risk) Defining levels of lipids in metabolic syndromeTriglyc erides > =150 mg/dLHDL Choles terol Men <40 mg/dL Women <40 mg/dL Non-HDL cholest nell is a second target f or therapy in personswith high triglycerides ( >=200 mg/dL) Lab Interpretation Abnormal (test code = 00039-3) [facility] MethodistIron [id number] 13:26:34 Test Item Value Reference Range Interpretation Comments Iron level (test code = 2498-4) 23 ug/dL 59-158 L Lab Interpretation (test code = Abnormal 79605-0) [facility] [id number] 13:21:58 Test Item Value Reference Range Interpretation Comments PTH (test code = 2731-8) 33 pg/mL 15-65 [facility] Upper GI and Small Bowel [id number] 14:51:13Addendum by Alfredito Fontenot MD on 09/23/2019 10:19 AM ADDENDUM #1 Addendum is offered for calcification. There is no evidence of stenosis or luminal narrowing at the jejunojejunaljunction; rather, anastomosis is shown to be widely patent on prior CT scan from outside facility, but obstructed by a large bezoar. Interface, Radiology Results Incoming - 09/22/2019 2:54 PM CDTEXAMINATION: FL UGI GI AND SMALL BOWELCLINICAL HISTORY: to evaluate GE and JJ anastomosisCOMPARISON:Upper GI 03/01/16; external CT abdomen pelvis 09/21/2019TECHNIQUE: UPPER GI SERIES AND SMALL BOWEL FOLLOW THROUGH was performed with water soluble contrast.FLUOROSCOPIC TIME: 1.1 minutes. 13 fluoroscopic exposures.FINDINGS:Picker / Packer films demonstrate left upper quadrant suture line with multiple surrounding surgical clips. Additional right mid right pelvic suture line. Bowel gas pattern is nonobstructive. Visualized lung bases are clear.Status post Yamileth-en-Y gastric bypass. Moderate tertiary contractions with delayed esophageal clearance. Esophagojejunal anastomosis is slightly above the level of diaphragm, unchanged compared to 2016 exam. Esophagojejunal anastomosis is patent without evidence of stricture or leak. Yamileth limb is of normal caliber. At the jejunojejunal junction there is apparent luminal narrowing with suggestion of a rounded intraluminal mass (series 1 image 14 and 18). Contrast flowsdistally into the small bowel. No visible filling of the pancreaticobiliary limb.IMPRESSION:Status post Yamileth-en-Y bypass. Intraluminal filling defect at the jejunojejunal anastomosis appears to occludethe pancreaticobiliary limb without obstructing the Yamileth limb/distal small bowel. Comparison CT suggests fecalith/bezoar in the pancreaticobiliary limb at the J-J anastomosis. Patent esophagojejunal anastomosis.[facility]-[id number] and approved by residential specialist/fellow: Candida Chacon, Alfredito Fontenot MD, personally reviewed the images and resident's/fellow's findings and agree with the final report.[facility] Chest Wo [id number] 10:37:41Hm Interface, Radiology Results - 09/22/2019 10:40 AM CDTEXAMINATION:CT CHEST WO CONTRASTCLINICAL HISTORY:Pneumonia unresolved or complicatedTECHNIQUE:Multiple axial images of the chest were obtained without intravenous contrast. The lack of intravenous contrast reduces the sensitivity of detecting solid organ disease and evaluating vasculature. Sagittal and coronal computerized reformattedimages were also obtained.DOSE REDUCTION: CT imaging was performed with iterative reconstruction technique and/or automated exposure control to reduce radiation dose.COMPARISON:Single view chest from FINDINGS:1.Consolidative airspace disease is again seen within the right upper lobe corresponding with findings on chest x-ray from earlier today. Peribronchial nodular airspace disease is seen within the superior segment of the right lower lobe. The left lung is clear.2.No pleural effusion. A calcified granuloma seen within the left lung base. Debris/secretions are noted within the trachea.3.No pneumothorax.4.No mediastinal, hilar, or axillary lymphadenopathy. Calcified lymph nodes are seen within the right hilar region.5.The ascending thoracic aorta is aneurysmal measuring 5.2 cm in greatest AP diameter. The mid aortic arch measures 3.8 cm. The descending thoracic aorta at the level of the pulmonary arteries measures 2.7 cm and at the level of the hiatus measures 2.4 cm. A moderate amount of calcified atherosclerotic disease is noted.6.The cardiac size is enlarged. No pericardial effusion. Three-vessel coronary artery calcification is noted. Calcification of the aortic valve leaflets is suggested.7.The pulmonary trunk is normal in caliber.8.The thyroid is not visualized.9.Osteopenia. No vertebral body height loss.10.Limited, noncontrast evaluation of the upper abdomen demonstrates the patient is status post esophagojejunostomy with resection of the proximal stomach. The residual stomach appears prominent and filled with fluid and air. Fluid is also seen within the esophagus.IMPRESSION:1.Right upper lobe pneumonia with early right lower lobe bronchiolitis.2.Secretions and debris isseen within the trachea. Given pneumonia, correlate for recent aspiration.3.Aneurysmal dilatation ofthe ascending thoracic aorta measuring 5.2 cm in greatest AP diameter.4.Cardiomegaly and three-vessel coronary artery calcification is noted.5.Postsurgical changes within the upper abdomen are noted consistent with prior esophagojejunostomy with resection of the proximal stomach. The residual stomach appears prominent and contains fluid and air.[facility]-[id number] MethodistRespiratory pathogen [id number] 08:39:17Respiratory pathogen panelNegative for all pathogens tested:Negative for AdenovirusNegative for Coronavirus DWL5Bdgfxzxq for Coronavirus GF01Nzmnfupy for Coronavirus 229ENegative for Coronavirus FK17Soy ative for Human MetapneumovirusNegative for Rhinovirus/EnterovirusNegative for Influenza ANegative for Influenza A/X1Vxhoopzb for Influenza A/N4Gqawugut for Influenza A/H1-2009Negative for Influenza BNegative for Parainfluenza Virus 1Negative for Parainfluenza Virus 2Negative for Parainfluenza Virus 3Negative for Parainfluenza Virus 4Negative for Respiratory Syncytial VirusNegative for Bordetella pertussisNegative for Chlamydophila pneumoniaeNegative for Mycoplasma pneumoniaeThis real-time PCR assaydetects the presence of nucleic acids (RNA or DNA) for the respiratory pathogens listed. A result of "Not-detected" does not exclude the possibility of the presence of one or more pathogens at concentr ations less than the detectable limits of the assay. Comment: Specimen InformationSpecimen Source: NaresSpecimen Site: Not specified [facility] MethodistXR Chest 1 Vw [id number] 07:37:25Hm Interface, Radiology Results - 09/22/2019 7:40 AM CDTEXAMINATION: XR CHEST 1 VW PORTABLECLINICAL HISTORY: Patient with recnt hx of pna in middle of antibiotic courseCOMPARISON: December chestIMPRESSION:Dense right upper lobe infiltrate suspicious for pneumonia. Short-term follow-up to document clearing recommendedMild pleural parenchymal thickening over the right apexRight lower l obe clear. Left lung clear.The Cardiomediastinal silhouette is normal in size. Moderate vascular ectasia.Slight mediastinal shift to the right in keeping with some degree of volume loss right upper [id number] [facility] Urinalysis screen and microscopy, with reflex to [id number] 07:13:34 Test Item Value Reference Range Interpretation Comments Specimen site (test code = Clean catch 3982742) Color, UA (test code = 5778-6) Yellow Appearance, UA (test code = Clear 5767-9) Specific gravity, UA (test code = 1.019 1.001-1.035 5811-5) pH, UA (test code = 5803-2) 7.0 5.0-8.5 Protein, UA (test code = 96334-5) Negative Negative Glucose, UA (test code = 71512-0) Negative Negative Ketones, UA (test code = 2514-8) 1+ Negative A Bilirubin, UA (test code = Negative Negative 5770-3) Blood, UA (test code = 5794-3) Negative Negative Nitrite, UA (test code = 5802-4) Negative Negative Urobilinogen, UA (test code = <2.0 <2.0 35998-8) Leukocyte esterase, UA (test code Negative Negative = 5799-2) WBC, UA (test code = 5821-4) 1 0- 1 /HPF RBC, UA (test code = 81104-3) 1 0- 5 /HPF Bacteria, UA (test code = Few None seen 73191-3) Yeast, UA (test code = 45552-9) None seen Yeast with pseudohyphae, UA (test None seen code = 74412-3) Lab Interpretation (test code = Abnormal 96949-1) Kiko KatzUrine [id number] 07:11:27 Test Item Value Reference Range Interpretation Comments Urine culture (test SEE COMMENT Bacteriu mitch screen code = 1603666) negative. Kiko KatzT4, [id number] 02:42:03 Test Item Value Reference Range Interpretation Comments T4, free (test code = 3024-7) 1.7 ng/dL 0.9-1.7 Kiko KatzCT Abd/Pelvic External [id number] 01:12:03This exam was not acquired at a [facility] facility and has not been interpreted by a [facility] Provider. The exam was imported into our imaging system.Kiko Katz
[2020-03-20 12:32] LABS: Absolute Lymphocytes (CBC) 0.8 K/uL (0.7-4.9); Basophils % 0.1 % (0-1.3); Hematocrit 44.7 % (39.6-49.0); Lymphocytes % 6.6 % (15.3-44.8); MPV 9.1 fL (7.6-11.3); RBC Red Blood Cell Count 4.53 M/uL (4.33-5.43)
[2020-03-20] MEDS ORDERED: NA CHLORIDE 0.9% 500 ML ONE (12:34)
[2020-03-20 12:59] LABS: Blood Morphology Comment NOT SEEN (NOT SEEN); Platelet Estimate ADEQ; White Blood Cell Scan OK (OK)
[2020-03-20 13:00] LABS: Albumin 3.4 g/dL (3.4-5.0); Bilirubin Direct 0.3 mg/dL (0-0.2); Bilirubin Total 0.9 mg/dL (0.2-1.0); Potassium 3.6 mmol/L (3.5-5.1); Protein, Total 7.3 g/dL (6.4-8.2)
[2020-03-20] MEDS ORDERED: ONDANSETRON 4 MG/2 ML VIAL ONE (14:35)
[2020-03-20] MEDS ORDERED: PROMETHAZINE INJ 25 MG/ML AMP ONE (14:37)
--- NOTE | 2020-03-20 15:28 | RAD REPORT ---
EXAM DESCRIPTION: CT - Abdomen Pelvis Wo Contrast - 03/20/2020 2:42 pm CLINICAL HISTORY: hx of gastric bypass and stricture;Abd pain COMPARISON: Abdomen Pelvis W Contrast dated 09/21/2019 TECHNIQUE: Axial [address] imaging of the abdomen and pelvis was performed without IV contrast. No IV contrast was given because of allergy, abnormal renal function, patient refusal or physician re quest. Oral contrast was given. All CT scans are performed using dose optimization technique as appropriate and may include automated exposure control or mA/KV adjustment according to patient size. FINDINGS: No suspicious findings in the lung bases. The liver, spleen and pancreas show no suspicious findings on non-contrast imaging. Gallbladder is di stended. Gallstones can be occult on CT imaging. Respiratory motion degradation limits ability to ass ess true wall thickening or edema. No biliary tree dilatation. No hydronephrosis or suspicious renal mass. No significant adrenal finding. Isodense renal masses an d pyelonephritis cannot be excluded in the absence of IV contrast. The urinary bladder is without sig nificant finding. Gastric bypass surgical changes are present. No dilated small bowel or acute small bowel finding. Pro ximal and distal anastomotic sites show no acute findings. No colon dilatation. Oral contrast has micha ched the distal rectum. Mild colitis changes cannot be excluded. No diverticulitis identifiable. No free air, free fluid or inflammatory stranding. No hernia, mass or bulky lymphadenopathy. No suspicious bony findings. Prominent degenerative disc disease L5-S1. IMPRESSION: No bowel obstruction, free air or surgically emergent finding. Gallbladder is distended without biliary tree dilatation. Stones can be occult. Similar finding was s een back on the August 2019 study. Correlation is needed with any right upper quadrant symptoms. Right-side of the colon is not well distended by the oral contrast. This accentuates the wall thickne ss and precludes the exclusion of a mild colitis. Full assessment is limited is the absence of IV contrast.
[2020-03-20] MEDS ORDERED: ACETAMINOPHEN 500 MG TAB PO PRN (17:08)
[2020-03-20] MEDS ORDERED: HYDROMORPHONE HCL 1 MG/ML INJ IV PRN (17:08)
[2020-03-20] MEDS ORDERED: ONDANSETRON 4 MG/2 ML VIAL IV PRN ×2 (17:08→17:23)
--- NOTE | 2020-03-20 17:15 | EDPHYS ---
Physician Documentation [facility] Name: Abhay Morocho Age: 84 yrs Sex: Male : 1935 Arrival Date: 03/20/2020 Time: 11:50 Bed 15 Private MD: ED Physician Bhavin Norris HPI: 03/20 12:07 This 84 yrs old Male presents to ER via Ambulatory with complaints of rn Abdominal Pain. 12:07 The patient presents with abdominal pain in the upper abdomen. Onset: The rn symptoms/episode began/occurred this morning. The symptoms do not radiate. Associated signs and symptoms: Pertinent negatives: nausea and vomiting, blood in stools, chest pain, diarrhea, fever, shortness of breath. Modifying factors: The symptoms are alleviated by nothing, the symptoms are aggravated by nothing. Severity of pain: At its worst the pain was moderate in the emergency department the pain is unchanged. The patient has not experienced similar symptoms in the past. The patient has not recently seen a physician. Reports upper abd pain, began this morning, has happened before, has had gastric bypass and known intestinal stricture. No fever or vomiting. Reports always poor appetite. I transferred him to [facility] earlier in year for similar presentation, reports did not require surgery and "cleared out" with liquid diet. . Historical: - Allergies: 12:01 unknown nausea medication "starts with Z" causes severe constipation; iw - Home Meds: 12:01 levothyroxine oral once daily [Active]; Prilosec Oral once daily [Active]; Zantac Oral iw once daily [Active]; - PMHx: 12:01 GERD; Thyroid problem; iw - PSHx: 12:01 Gastric Bypass; iw - Immunization history:: Adult Immunizations up to date. - Family history:: not pertinent. - Social history:: Smoking status: Patient denies any tobacco usage or history of. - Hospitalizations: : No recent hospitalization is reported. ROS: 12:07 Constitutional: Negative for fever, chills, and weight loss, Eyes: Negative for injury, rn pain, redness, and discharge, Neck: Negative for injury, pain, and swelling, Cardiovascular: Negative for chest pain, palpitations, and edema, Respiratory: Negative for shortness of breath, cough, wheezing, and pleuritic chest pain, Abdomen/GI: Negative for nausea, vomiting, diarrhea Back: Negative for injury and pain, MS/Extremity: Negative for injury and deformity, Skin: Negative for injury, rash, and discoloration, Neuro: Negative for headache, weakness, numbness, tingling, and seizure. Exam: 12:07 Constitutional: Thin male, no acute distress Head/Face: Normocephalic, atraumatic. yarn conditioner: Regular rate and rhythm. No pulse deficits. Respiratory: No increased work of breathing, no retractions or nasal flaring. Abdomen/GI: soft, + epigastric/RUQ, no masses Skin: Warm, dry MS/ Extremity: Pulses equal, no cyanosis. Neurovascular intact. Full, normal range of motion. Equal circumference. Neuro: Awake and alert, GCS 15 Vital Signs: 11:58 BP 146 / 92; Pulse 84; Resp 16; Temp 97.5; Pulse Ox 98% ; Pain 6/10; iw 13:15 BP 147 / 85; Pulse 68; Resp 16; Temp 97.8; Pulse Ox 96% ; ll1 15:24 BP 131 / 78; Pulse 82; Resp 16; Pulse Ox 96% on R/A; ll1 17:52 BP 111 / 72; Pulse 51; Resp 16; Temp 98.7(O); Pulse Ox 96% ; Pain 0/10; ll1 13:15 Patient shaking, states he has the chills. Warm blanket given. Oral and temporal temp ll1 checked:97.8. Dr. Norris informed. MDM: 11:54 Patient medically screened. rn 17:11 Differential diagnosis: cholecystitis, Cholelithiasis, gastritis, gastroesophageal rn reflux disease, non-specific abd pain, pancreatitis, stricture, obstruction. Data reviewed: vital signs, nurses notes, lab test result(s), radiologic studies, CT scan, ultrasound, and as a result, I will admit patient. Counseling: I had a detailed discussion with the patient and/or guardian regarding: the historical points, exam findings, and any diagnostic results supporting the discharge/admit diagnosis, lab results, radiology results, the need for further work-up and treatment in the hospital. Admission orders: after a detailed discussion of the patient's condition and case, the admit orders are written by me. ED course: Consulted with Dr. Tucker, will admit to Dr. Montanez, most likely gallbladder, given distended and mild thickening of wall, no stones, + 12K WBC, and continues to have emesis. Will admit with abx and possible cholecystectomy. . 03/20 12:04 Order name: Basic Metabolic Panel; Complete Time: 13:11 rn 03/20 12:04 Order name: CBC with Diff; Complete Time: 13:11 rn 03/20 12:04 Order name: Hepatic Function; Complete Time: 13:11 rn 03/20 12:04 Order name: Lipase; Complete Time: 13:11 rn 03/20 12:35 Order name: CBC Smear Scan; Complete Time: 13:11 EDMS 03/20 17:16 Order name: Type and Screen EDMS 03/20 17:16 Order name: Type and Screen EDMS 03/20 17:16 Order name: CBC with Automated Diff EDMS 03/20 17:16 Order name: CBC with Automated Diff EDMS 03/20 17:16 Order name: Comprehensive Metabolic Panel EDMS 03/20 17:16 Order name: Comprehensive Metabolic Panel EDMS 03/20 17:16 Order name: Lipase EDMS 03/20 17:16 Order name: Lipase EDMS 03/20 17:16 Order name: Magnesium EDMS 03/20 14:40 Order name: Abdomen ; Complete Time: 17:01 EDMS 03/20 15:43 Order name: US Abdomen Limited; Complete Time: 17:30 iw 03/20 17:16 Order name: Magnesium EDMS 03/20 17:16 Order name: Phosphorus EDMS 03/20 17:16 Order name: Phosphorus EDMS 03/20 17:16 Order name: Protime (+INR) EDMS 03/20 17:16 Order name: Protime (+INR) EDMS 03/20 17:16 Order name: PTT, Activated Partial Thromb EDMS 03/20 17:16 Order name: PTT, Activated Partial Thromb EDMS 03/20 12:04 Order name: IV Saline Lock; Complete Time: 12:20 rn 03/20 12:04 Order name: Labs collected and sent; Complete Time: 12:20 rn 03/20 17:16 Order name: CONS Physician Consult EDMS 03/20 17:16 Order name: NPO EDMS 03/20 17:16 Order name: EKG Electrocardiogram EDMS 03/20 17:16 Order name: EKG Electrocardiogram EDMS 03/20 17:26 Order name: CONS Physician Consult EDMS Administered Medications: 12:30 Drug: NS 0.9% 500 ml Route: IV; Rate: bolus; Site: left antecubital; iw 13:18 Follow up: Response: No adverse reaction; IV Status: Completed infusion; IV Intake: ll1 500ml 14:36 Not Given (Patient Refused): Demerol 25 mg IVP once; RASS on ADMIN: Combtv4, Very ll1 Agttd3, Agttd2, Rstlss1, AlertClm0, Drwsy-1, Lt Sdtn-2, Mod Sdtn-3, Dp Sdtn-4, UnArsble-5 14:36 Drug: Phenergan 12.5 mg Route: IVP; Site: left antecubital; ll1 15:24 Follow up: Response: No adverse reaction; Nausea is decreased; RASS: Alert and Calm (0) ll1 17:13 Drug: Flagyl 500 mg Volume: 100 ml; Route: IVPB; Rate: 200 ml/hr; Infused Over: 30 ll1 mins; Site: right antecubital; 17:42 Follow up: Response: No adverse reaction; IV Status: Completed infusion jl7 17:54 Follow up: Response: No adverse reaction; IV Status: Completed infusion; IV Intake: 79yxil1 17:47 Drug: Rocephin 1 grams Route: IV; Rate: calculated rate; Site: left antecubital; jl7 17:51 Follow up: Response: No adverse reaction; IV Status: Completed infusion jl7 17:54 Follow up: Response: No adverse reaction; RASS: Alert and Calm (0); IV Status: ll1 Completed infusion; IV Intake: 10ml 17:49 Not Given (Duplicate Order): Rocephin - (cefTRIAXone) 1 grams IVPB once over 30 mins; jl7 (mix in 100 mL NS) Disposition: 03/20/20 17:14 Hospitalization ordered by Jesse Montanez for Observation. Preliminary diagnosis are Upper abdominal pain, unspecified, Disease of gallbladder, unspecified. - Bed requested for Telemetry/MedSurg (Inpatient). - Status is Observation. ll1 - Condition is Stable. - Problem is new. - Symptoms have improved. Signatures: Dispatcher [employer] EDMS Stephanie Moser Irene, RN Bhavin Vicente MD MD rn Leal, Jahala, HIMANSHU RN jl7 Rene Song, RN RN ll1 Corrections: (The following items were deleted from the chart) 14:40 12:05 Abdomen Pelvis W Con+CT.RAD.BRZ ordered. EDMS EDMS 17:32 17:14 Hospitalization Ordered by Jesse Montanez MD for Observation. Preliminary bd diagnosis is Upper abdominal pain, unspecified; Disease of gallbladder, unspecified. Bed requested for Telemetry/MedSurg (Inpatient). Status is Observation. Condition is Stable. Problem is new. Symptoms have improved. rn 18:18 17:32 03/20/2020 17:14 Hospitalization Ordered by Jesse Montanez MD for Observation. ll1 Preliminary diagnosis is Upper abdominal pain, unspecified; Disease of gallbladder, unspecified. Bed requested for Telemetry/MedSurg (Inpatient). Status is Observation. Condition is Stable. Problem is new. Symptoms have improved. bd
--- NOTE | 2020-03-20 17:15 | ER ---
Nurse's Notes [facility] Name: Abhay Morocho Age: 84 yrs Sex: Male : 1935 Arrival Date: 03/20/2020 Time: 11:50 Bed 15 Private MD: Diagnosis: Upper abdominal pain, unspecified;Disease of gallbladder, unspecified Presentation: 03/20 11:57 Chief complaint: Chief complaint: Patient states: LUQ pain since this morning, hx of iw intestinal stricture, no vomiting. 11:58 Coronavirus screen: At this time, the client does not indicate any symptoms associated iw with coronavirus-19. Ebola Screen: Patient negative for fever greater than or equal to 101.5 degrees Fahrenheit, and additional compatible Ebola Virus Disease symptoms Patient denies exposure to infectious person. Patient denies travel to an Ebola-affected area in the 21 days before illness onset. No symptoms or risks identified at this time. Initial Sepsis Screen: Does the patient meet any 2 criteria? No. Patient's initial sepsis screen is negative. Does the patient have a suspected source of infection? No. Patient's initial sepsis screen is negative. Risk Assessment: Do you want to hurt yourself or someone else? Patient reports no desire to harm self or others. Onset of symptoms was March 20, 2020. 11:58 Method Of Arrival: Ambulatory iw 11:58 Acuity: ALMAS 3 iw Historical: - Allergies: 12:01 unknown nausea medication "starts with Z" causes severe constipation; iw - Home Meds: 12:01 levothyroxine oral once daily [Active]; Prilosec Oral once daily [Active]; Zantac Oral iw once daily [Active]; - PMHx: 12:01 GERD; Thyroid problem; iw - PSHx: 12:01 Gastric Bypass; iw - Immunization history:: Adult Immunizations up to date. - Family history:: not pertinent. - Social history:: Smoking status: Patient denies any tobacco usage or history of. - Hospitalizations: : No recent hospitalization is reported. Screenin:17 Abuse screen: Denies threats or abuse. Nutritional screening: No deficits noted. ll1 Tuberculosis screening: No symptoms or risk factors identified. Fall Risk IV access (20 points). Gait- Weak (10 pts.). Total Anguiano Fall Scale indicates Low Risk Score (25-44 pts). Fall prevention measures have been instituted. Side Rails Up X 2 Frequent Obs/Assesments occuring As available Patient and Family Educated on Fall Prevention Program and strategies. Assessment: 12:40 General: Appears uncomfortable, Behavior is calm, cooperative, appropriate for age. ll1 Pain: Complains of pain in LUQ Quality of pain is described as aching. Neuro: No deficits noted. Cardiovascular: No deficits noted. Respiratory: No deficits noted. GI: Abdomen is flat, Bowel sounds present X 4 quads. Abd is soft and non tender X 4 quads. Reports upper abdominal pain, Patient currently denies vomiting. 13:30 Reassessment: Patient and/or family updated on plan of care and expected duration. Pain ll1 level reassessed. Patient is alert, oriented x 3, equal unlabored respirations, skin warm/dry/pink. 14:30 Reassessment: Patient and/or family updated on plan of care and expected duration. Pain ll1 level reassessed. Patient is alert, oriented x 3, equal unlabored respirations, skin warm/dry/pink. Dr castillo, medicated with Phenergan before going to CT. 15:28 Reassessment: Patient and/or family updated on plan of care and expected duration. Pain ll1 level reassessed. Patient is alert, oriented x 3, equal unlabored respirations, skin warm/dry/pink. Patient states symptoms have improved. 16:30 Reassessment: Patient and/or family updated on plan of care and expected duration. Pain ll1 level reassessed. Patient is alert, oriented x 3, equal unlabored respirations, skin warm/dry/pink. 17:30 Reassessment: Patient and/or family updated on plan of care and expected duration. Pain ll1 level reassessed. Patient is alert, oriented x 3, equal unlabored respirations, skin warm/dry/pink. 18:17 Reassessment: Patient and/or family updated on plan of care and expected duration. Pain ll1 level reassessed. Patient is alert, oriented x 3, equal unlabored respirations, skin warm/dry/pink. Vital Signs: 11:58 BP 146 / 92; Pulse 84; Resp 16; Temp 97.5; Pulse Ox 98% ; Pain 6/10; iw 13:15 BP 147 / 85; Pulse 68; Resp 16; Temp 97.8; Pulse Ox 96% ; ll1 15:24 BP 131 / 78; Pulse 82; Resp 16; Pulse Ox 96% on R/A; ll1 17:52 BP 111 / 72; Pulse 51; Resp 16; Temp 98.7(O); Pulse Ox 96% ; Pain 0/10; ll1 13:15 Patient shaking, states he has the chills. Warm blanket given. Oral and temporal temp ll1 checked:97.8. Dr. Norris informed. ED Course: 11:50 Patient arrived in ED. mr 11:54 Bhavin Norris MD is Attending Physician. rn 12:00 Triage completed. iw 12:01 Arm band placed on. iw 12:17 Initial lab(s) drawn, by me, sent to lab. Inserted saline lock: 20 gauge in left dh3 antecubital area, using aseptic technique. Blood collected. 12:30 Odalys Macedo, RN is Primary Nurse. iw 12:35 Rene Song, RN is Primary Nurse. ll1 13:18 Bed in low position. Call light in reach. Side rails up X 1. Pulse ox on. NIBP on. ll1 14:42 Abdomen In Process Unspecified. EDMS 16:49 US Abdomen Limited In Process Unspecified. EDMS 17:13 Jesse Montanez MD is Hospitalizing Provider. rn 18:00 No provider procedures requiring assistance completed. Patient admitted, IV remains in ll1 place. Administered Medications: 12:30 Drug: NS 0.9% 500 ml Route: IV; Rate: bolus; Site: left antecubital; iw 13:18 Follow up: Response: No adverse reaction; IV Status: Completed infusion; IV Intake: ll1 500ml 14:36 Not Given (Patient Refused): Demerol 25 mg IVP once; RASS on ADMIN: Combtv4, Very ll1 Agttd3, Agttd2, Rstlss1, AlertClm0, Drwsy-1, Lt Sdtn-2, Mod Sdtn-3, Dp Sdtn-4, UnArsble-5 14:36 Drug: Phenergan 12.5 mg Route: IVP; Site: left antecubital; ll1 15:24 Follow up: Response: No adverse reaction; Nausea is decreased; RASS: Alert and Calm (0) ll1 17:13 Drug: Flagyl 500 mg Volume: 100 ml; Route: IVPB; Rate: 200 ml/hr; Infused Over: 30 ll1 mins; Site: right antecubital; 17:42 Follow up: Response: No adverse reaction; IV Status: Completed infusion jl7 17:54 Follow up: Response: No adverse reaction; IV Status: Completed infusion; IV Intake: 79ohqu8 17:47 Drug: Rocephin 1 grams Route: IV; Rate: calculated rate; Site: left antecubital; jl7 17:51 Follow up: Response: No adverse reaction; IV Status: Completed infusion jl7 17:54 Follow up: Response: No adverse reaction; RASS: Alert and Calm (0); IV Status: ll1 Completed infusion; IV Intake: 10ml 17:49 Not Given (Duplicate Order): Rocephin - (cefTRIAXone) 1 grams IVPB once over 30 mins; jl7 (mix in 100 mL NS) Intake: 11:50 IV: 500ml; Total: 500ml. jl7 13:18 IV: 500ml; Total: 1000ml. ll1 17:54 IV: 50ml; Total: 1050ml. ll1 17:54 IV: 10ml; Total: 1060ml. ll1 Outcome: 17:14 Decision to Hospitalize by Provider. rn 18:00 Admitted to Tele accompanied by tech, via wheelchair, room 401, with chart, Report ll1 called to 4th floor RN 18:00 Condition: stable 18:18 Patient left the ED. ll1 Signatures: Dispatcher [employer] JEANNIEAL Cecily Daniel Irene, RN RN iw Nieto, Roman, MD MD rn Leal, Jahala, RN RN jl7 Radha Lam [facility] Rene Song RN RN ll1 Corrections: (The following items were deleted from the chart) 12:00 11:57 Chief complaint: iw iw 15:26 13:15 BP 147 / 85; Pulse 68bpm; Resp 16bpm; Pulse Ox 96%; Temp 97.8F; ll1 ll1
[2020-03-20] MEDS ORDERED: METRONIDAZOLE 500mg IVPB 500 MG/100 ML BAG IV ONE (17:22)
--- NOTE | 2020-03-20 17:26 | RAD REPORT ---
EXAM DESCRIPTION: US - Abdomen Exam Limited - 03/20/2020 4:49 pm CLINICAL HISTORY: ABD PAIN COMPARISON: Abdomen Pelvis Wo Contrast dated 03/20/2020 FINDINGS: Gallbladder is distended. No wall thickening or pericholecystic fluid. No stones or sludge identifiable. No common duct stone or biliary tree dilatation identified. IMPRESSION: Distended gallbladder with no stones or sludge. No wall thickening, pericholecystic fluid or biliary abnormality.
[2020-03-20] MEDS ORDERED: CEFTRIAXONE/SWI 1gm 1 GM/10 ML SYR ONE (17:46)
[2020-03-20] MEDS ORDERED: CEFTRIAXONE/SWI 1gm 1 GM/10 ML SYR IVP ONE (18:00)
[2020-03-20] MEDS: ENOXAPARIN 40 MG/0.4 ML SQ SCH (19:37)
[2020-03-20] MEDS: NA CHLORIDE 0.9% 1,000 ML IV SCH (19:38)
[2020-03-20] MEDS ORDERED: SODIUM CHLORIDE 0.9% 10ML INJ IV PRN (19:56)
[2020-03-20] MEDS ORDERED: PROMETHAZINE INJ 25 MG/ML AMP IV PRN (19:57)
[2020-03-20] MEDS: PANTOPRAZOLE 40 MG INJ IVP SCH (20:38)
[2020-03-20 22:02] VITALS: BMI 19.5
[2020-03-20] MEDS ORDERED: PIPER/TAZO/NS 3.375gm 6.750 GM/200 ML BAG ONE (23:29)
--- NOTE | 2020-03-20 23:31 | P.PN ---
Date of Service: 03/20/20 Notified by nurse on telemetry that patient was in AFib. Ordered EKG which verified the patient is in atrial fibrillation rate controlled. Patient denies any cardiac history. Denies any history of atrial fibrillation. Current pulse rate 84 bpm Will continue to monitor.
[2020-03-21] MEDS: PIPER/TAZO/NS 3.375gm 3.375 GM/100 ML BAG IVPB SCH ×5 (00:10→23:52)
[2020-03-21 03:59] LABS: Absolute Lymphocytes (CBC) 1.5 K/uL (0.7-4.9); Basophils % 0.4 % (0-1.3); Hematocrit 38.8 % (39.6-49.0); Lymphocytes % 18.1 % (15.3-44.8); MPV 9.5 fL (7.6-11.3); RBC Red Blood Cell Count 3.94 M/uL (4.33-5.43)
[2020-03-21 04:03] LABS: Protime INR 1.27
[2020-03-21 04:14] LABS: Albumin 2.6 g/dL (3.4-5.0); Bilirubin Total 0.9 mg/dL (0.2-1.0); Magnesium 2.4 mg/dL (1.8-2.4); Phosphorus 3.7 mg/dL (2.5-4.9); Potassium 3.7 mmol/L (3.5-5.1); Protein, Total 5.9 g/dL (6.4-8.2)
[2020-03-21] MEDS ORDERED: POTASSIUM CL SA 10 MEQ TAB PO ONE (04:39)
--- NOTE | 2020-03-21 07:14 | EKG ---
Test Date: 2020-03-20 Test Time: 23:17:53 Motorboat Mechanic Inboard: RT Rodrigues MEASUREMENT RESULTS: Intervals: Rate: 65 OK: QRSD: 84 QT: 404 QTc: 420 [place]: P: OK: QRS: 131 T: 7 INTERPRETIVE STATEMENTS: Atrial fibrillation Low voltage QRS Left posterior fascicular block Cannot rule out Anterior infarct, age undetermined Abnormal ECG Compared to ECG 09/21/2019 19:11:19 Low QRS voltage now present Left posterior fascicular block now present Sinus rhythm no longer present Myocardial infarct finding still present Electronically Signed On 03-21-20 07:13:34 CDT by Lucius Harmon
[2020-03-21] MEDS: NA CHLORIDE 0.9% 1,000 ML IV SCH ×2 (08:59→20:30)
[2020-03-21] MEDS: ENOXAPARIN 40 MG/0.4 ML SQ SCH (09:00)
[2020-03-21] MEDS: PANTOPRAZOLE 40 MG INJ IVP SCH ×2 (09:01→20:30)
--- NOTE | 2020-03-21 09:59 | P.HP ---
Certification for Inpatient Patient admitted to: Inpatient With expected LOS: >2 Midnights Patient will require the following post-hospital care: None Practitioner: I am a practitioner with admitting privileges, knowledge of patient current condition, hospital course, and medical plan of care. Services: Services provided to patient in accordance with Admission requirements found in Title 42 Section 412.3 of the Code of Federal Regulations Patient History Date of Service: 03/20/20 Reason for admission: Acute cholecystitis History of Present Illness: Patient is an 84-year-old gentleman who came to the hospital with intractable nausea and vomiting. Patient also was having abdominal discomfort mainly in the epigastric and right upper quadrant region. In the emergency room he was worked up in labs looked fairly normal. Imaging studies however revealed acute cholecystitis. Patient had abdominal surgery many years ago and required a stomach bypass because of esophageal issues. He does not really know the extent of the surgery. However, he has been doing well over the last few years. He has been losing quite a bit await any says he has CE 5 times a day just to keep weight on. Denies any chest pain or shortness of breath. 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 No other atherosclerotic disease was noted. At this time, patient be admitted to the hospital for further evaluation. Cardiac workup as well. Allergies No Known Drug Allergies Adverse Reaction (Mild, Verified 03/20/20 19:26) Unknown ondansetron [From Zofran] Adverse Reaction (Verified 03/20/20 19:26) Rash Home Medications: Levothyroxine Sodium [Synthroid] 0.075 mcg PO DAILY 04/19/18 Omeprazole [Prilosec] 40 mg PO BID 04/19/18 Calcium Carbonate [Tums Ultra Strength] 0.5 tab PO BEDTIME 03/20/20 Travoprost [Travatan Z*] 1 gtt OP BEDTIME 03/20/20 mg Trisilicate/Alh/Nahco3/Aa [Gaviscon 80-14.2 mg Tab Chew] 1 tab PO BEDTIME 03/20/20 - Past Medical/Surgical History Has patient received pneumonia vaccine in the past: Yes Diabetic: No -: GERD -: hypothyroidism -: glaucoma -: stomach bypass due to GERD -: cataract sx -: back surgery ruptured disc -: left shoulder surgery bone spurs -: vasectomy -: 4 stomach surgeries - Family History Father Medical History: GI disease Mother Medical History: Lung disease, Cancer Notes: breast ca with mets lungs - Social History Smoking Status: Former smoker Alcohol use: No CD- Drugs: No Caffeine use: Yes Place of Residence: Home Review of Systems 10-point ROS is otherwise unremarkable Physical Examination - Vital Signs Temperature: 97.7 F Blood Pressure: 110/56 Pulse: 54 Respirations: 17 Pulse Ox (%): 98 - Physical Exam General: Alert, In no apparent distress, Oriented x3 HEENT: Atraumatic, PERRLA, Mucous membr. moist/pink, EOMI, Sclerae nonicteric Neck: Supple, 2+ carotid pulse no bruit, No LAD, Without JVD or thyroid abnormality Respiratory: Clear to auscultation bilaterally, Normal air movement Cardiovascular: Regular rate/rhythm, Normal S1 S2, Systolic murmur Gastrointestinal: Hypoactive, Soft and benign, Distended, Tenderness, Rebound, Guarding Musculoskeletal: No clubbing, No swelling, No tenderness Integumentary: No rashes Neurological: Normal gait, Normal speech, Normal strength at 5/5 x4 extr, Normal tone, Sensation intact, Cranial nerves 3-12 intact, Normal affect Lymphatics: No axilla or inguinal lymphadenopathy - Studies Laboratory Data (last 24 hrs) 03/20/20 12:17: WBC 12.2 H, Hgb 14.8, Hct 44.7, Plt Count 177 03/20/20 12:17: Sodium 142, Potassium 3.6, BUN 15, Creatinine 0.99, Glucose 92, Total Bilirubin 0.9, AST 17, ALT 25, Alkaline Phosphatase 90, Lipase 141 Assessment & Plan - Problems (Diagnosis) (1) Acute cholecystitis Current Visit: Yes Status: Acute (2) History of coronary artery disease Current Visit: Yes Status: Acute (3) History of gastric surgery Current Visit: Yes Status: Acute - Plan 1. Continue with IV hydration 2. Continue with IV antibiotics 3. Continue with pain control 4. NPO 5. General surgery consultation; 6. Cardiac clearance 7. GI and DVT prophylaxis Discharge Plan: Home Plan to discharge in: Greater than 2 days - Advance Directives Does patient have a Living Will: Yes Does patient have a Durable POA for Healthcare: Yes - Code Status/Comfort Care Code Status Assessed: Yes Code Status: Full Code Critical Care: No Time Spent Managing PTS Care (In Minutes): 45
--- NOTE | 2020-03-21 10:02 | P.PN ---
Subjective Date of Service: 03/21/20 Patient had an episode of atrial fibrillation. No history of this. Cardiology is going to see him in the morning for cardiac clearance. Also had an echocardiogram the treatment. Check serial troponins and EKG. Review of Systems 10-point ROS is otherwise unremarkable Physical Examination - Vital Signs Temperature: 97.7 F Blood Pressure: 110/56 Pulse: 54 Respirations: 17 Pulse Ox (%): 98 - Physical Exam General: Alert, In no apparent distress, Oriented x3 HEENT: Atraumatic, PERRLA, EOMI Neck: Supple, JVD not distended Respiratory: Clear to auscultation bilaterally, Normal air movement Cardiovascular: No murmurs, Irregular heart rate/rhythm Gastrointestinal: Hypoactive, Tenderness Musculoskeletal: No clubbing, No swelling, No tenderness Integumentary: No rashes Neurological: Normal speech, Normal tone, Normal affect Lymphatics: No axilla or inguinal lymphadenopathy - Studies Laboratory Data (last 24 hrs) 03/20/20 12:17: WBC 12.2 H, Hgb 14.8, Hct 44.7, Plt Count 177 03/20/20 12:17: Sodium 142, Potassium 3.6, BUN 15, Creatinine 0.99, Glucose 92, Total Bilirubin 0.9, AST 17, ALT 25, Alkaline Phosphatase 90, Lipase 141 Medications List Reviewed: Yes Assessment & Plan - Problems (Diagnosis) (1) Acute cholecystitis Current Visit: Yes Status: Acute (2) History of coronary artery disease Current Visit: Yes Status: Acute (3) History of gastric surgery Current Visit: Yes Status: Acute (4) Atrial fibrillation Current Visit: Yes Status: Acute - Plan 1. Continue with IV hydration 2. Continue with IV antibiotics 3. Continue with pain control 4. NPO 5. General surgery consultation; 6. Cardiology consultation; monitor rate; get echocardiogram; check serial troponins and EKG. 7. GI and DVT prophylaxis - Advance Directives Does patient have a Living Will: Yes Does patient have a Durable POA for Healthcare: Yes - Code Status/Comfort Care Code Status: Full Code
[2020-03-21 10:32] LABS: Thyroid Stimulating Hormone 0.05 uIU/mL (0.360-3.740); Troponin I 0.02 ng/mL (0.0-0.045)
--- NOTE | 2020-03-21 13:42 | P.HP ---
Date of Service: 03/21/20 PC: I was asked to see this 84-year-old male in regards to right upper quadrant abdominal pain. HPC: Patient apparently presented emergency room with severe right upper quadrant abdominal pain, possibly radiating to his back, but located mostly in the upper midline. PMH: DYLANx: SOC: NABILAS REVIEW: O/E HEENT: Chest: ABD: LOCO: DATA: IMPRESSION: PLAN:
--- NOTE | 2020-03-21 13:47 | P.CNS ---
Chief Complaint: Acute cholecystitis Allergies No Known Drug Allergies Adverse Reaction (Mild, Verified 03/20/20 19:26) Unknown ondansetron [From Zofran] Adverse Reaction (Verified 03/20/20 19:26) Rash Home Medications: Levothyroxine Sodium [Synthroid] 0.075 mcg PO DAILY 04/19/18 Omeprazole [Prilosec] 40 mg PO BID 04/19/18 Calcium Carbonate [Tums Ultra Strength] 0.5 tab PO BEDTIME 03/20/20 Travoprost [Travatan Z*] 1 gtt OP BEDTIME 03/20/20 mg Trisilicate/Alh/Nahco3/Aa [Gaviscon 80-14.2 mg Tab Chew] 1 tab PO BEDTIME 03/20/20 - Past Medical/Surgical History Diabetic: No -: GERD -: hypothyroidism -: glaucoma -: stomach bypass due to GERD -: cataract sx -: back surgery ruptured disc -: left shoulder surgery bone spurs -: vasectomy -: 4 stomach surgeries - Family History Father Medical History: GI disease Mother Medical History: Lung disease, Cancer Notes: breast ca with mets lungs - Social History Alcohol use: No CD- Drugs: No Caffeine use: Yes Place of Residence: Home Physical Examination Temp Pulse Resp BP Pulse Ox 97.9 F 61 17 115/52 L 99 03/21/20 12:00 03/21/20 12:00 03/21/20 12:00 03/21/20 12:00 03/21/20 12:00 Gastrointestinal: Soft and benign, No tenderness, No rebound, No guarding Imagings Data: Reviewed Conclusions/Impression: This patient presents emergency room yesterday apparently with severe right upper quadrant abdominal pain radiating into his back. She was seen this morning by the hospitalist who had he still had some abdominal discomfort. I sp remi to him around noontime. He was pain free. Asking for food. Clinically exam revealed no abdominal guarding tenderness rebound or any tenderness at all. The patient was found have recently gone into atrial fibrillation. At the current time he is feeling better. He does not have a lot of gross pathology seen on his CT scan. Have propose that he be started on a regular diet. If his pain does not recur, that he be discharged. He can follow up with me in my office on Friday. If the pain recurs, he is going to return to the emergency room and contact me. I have discussed this with the hospitalist and pending on his tolerating a diet, he will determine his further course of treatment.
[2020-03-22] MEDS: PIPER/TAZO/NS 3.375gm 3.375 GM/100 ML BAG IVPB SCH (05:28)
[2020-03-22] MEDS ORDERED: LEVOTHYROXINE SOD 0.125 MG TAB PO SCH (07:30)
[2020-03-22] MEDS: ENOXAPARIN 40 MG/0.4 ML SQ SCH (07:35)
[2020-03-22] MEDS: PANTOPRAZOLE 40 MG INJ IVP SCH (07:35)
[2020-03-22 08:15] VITALS: BP 122/75; TEMP 97.8
[2020-03-22 08:51] VITALS: O2SAT 99
[2020-03-22] MEDS ORDERED: HOME MED 1 EA UNK (Omeprazole [Prilosec] 40 MG) PO SCH (09:00)
[2020-03-22] MEDS ORDERED: [UNRECOGNIZED DRUG - OTHER] PO SCH (21:00)
[2020-03-22] MEDS ORDERED: CALCIUM CARBONATE CHEW 500MG TAB PO SCH (21:00)
[2020-03-22] MEDS ORDERED: TRAVOPROST OP SCH (21:00)
--- NOTE | 2020-03-23 05:41 | PN ---
Date of Progress Note: 03/21/2020 Subjective: Mr. Morocho is an 84-year-old male who was admitted by Dr. Montanez with the possibility of cho lecystectomy. We have asked to clear him. Dr. Tracy has seen him in that regard. He has a histor y of coronary artery disease in the past, hypothyroidism, gastroesophageal reflux disease. He denied any cardiac symptoms. There is no clinical evidence of CHF or CAD by examination. He is in sinus r hythm, afebrile. Normally, he sees Dr. Hdez. He has been doing well cardiac tapia. Surgery was no t performed. Plan: I think there is a plan for conservative medical management. He is clear for surgery from our standpoint if this is planned. There is an echocardiogram pending. We will be available for questi on if the need arises. If he is to be discharged, I would like to see him in the office in the next few weeks. ANTOINE/VENECIA Voice ID: [id number] Report ID: [id number]
== END 2020-03-22 10:20 | disposition home or self-care (01) | DRG 446 ==
LOC: ER 11:45 → ERHOLD 17:29 → 4TH 18:07
PROVIDERS: ADMIT Hospitalist; ATTEND Hospitalist
DX: K81.0 Acute cholecystitis (principal); I48.91 Unspecified atrial fibrillation; E03.9 Hypothyroidism, unspecified; K21.9 Gastro-esophageal reflux disease without esophagitis; Z88.8 Allergy status to other drugs, medicaments and biological substances; Z79.890 Hormone replacement therapy; Z79.899 Other long term (current) drug therapy; Z98.84 Bariatric surgery status; Z87.891 Personal history of nicotine dependence; Z20.828 Contact with and (suspected) exposure to other viral communicable diseases
CPT/HCPCS: 36415; 74176; 76705; 80048; 80053; 80076; 83690; 83735; 84100; 84439; 84443; 84484; 85025; 85610; 85730; 86850; 86900; 86901; 93005; 96361; 96365; 96375; 99285; C9113; J0696; J1650; J2405; J2543; J2550; J7030; J7040; U0002

== ENCOUNTER 2021-09-22 11:20 | Emergency (ER) | payer OTHER ==
--- OUTSIDE RECORDS SUMMARY | 2021-09-22 11:24 | XMS REPORT | Continuity of Care Document ---
:1935 Author Organization [facility] t Address [address] [place] [address] Care Team Providers Name Role Phone Dominick Hdez MD Primary Care Physician MEGAN Attending Clinician Unavailable CHRISTY PRATER Attending Clinician Unavailable LAB90 Attending Clinician Unavailable Christy Prater MD Attending Clinician MEGAN Attending Clinician Unavailable Yeison BELTRAN Attending Clinician Unavailable Payers Payer Name Policy Type Policy Number Effective Date Expiration Date S obed MEDICARE PART A [id number] 1998 AND B 00:00:00 MEDICARE-PART B 5 [id number] 2006 00:00:00 AETNA 2 [id number] 2020 00:00:00 Problems Condition Condition Condition Status Onset Resolution Last Treating Co mments Source Name Details Category Date Date Treatment Clinician Date 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 arrhythmia 07-28 Se ybold 00:00: 00 Hyperlipid Hyperlipid Disease Active 2020-06 Fredrick frias emia emia 07-28 Seybold 00:00: 00 Gastroesop Gastroesop Disease Active 2020-06 Fredrick frias hageal hageal 07-28 Seybold reflux reflux 00:00: disease disease 00 Unintended Unintended Disease Active 2020-06 Fredrick frias weight weight 07-28 Seybold loss - Not loss - Not 00:00: Controlled Controlled 00 Current Current Disease Active 2020-06 Janine use of use of 07-28 Seybold proton proton 00:00: pump pump 00 inhibitor inhibitor - - Unchanged Unchanged NSVT NSVT Disease Active Methodi (nonsustai (nonsustai 09-25 salvador salvador 00:00: Hospita ventricula ventricula 00 l r r tachycardi tachycardi a) a) Constipati Constipati Disease Active M ethodi on on 09-25 st 00:00: Hospita 00 l Normocytic Normocytic Disease Active M ethodi anemia anemia 09-25 00:00: Hospita 00 l Hypoalbumi Hypoalbumi Disease Active M ethodi nemia due nemia due 09-25 to to 00:00: Hospita protein-ca protein-ca 00 l [facility] malnutriti malnutriti on on Hypothyroi Hypothyroi Disease Active Fredrick frias dism dism 09-25 Seybold 00:00: 00 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 Formattin g of this note might be different from the original. 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 GERD GERD Disease Active [facility]i (gastroeso (gastroeso 5-17 st phageal phageal 00:00: Hospita reflux reflux 00 l disease) disease) Pharyngoes Pharyngoes Disease Active M ethodi ophageal ophageal 5-[address] dysphagia dysphagia 00:00: Hosp [facility] 00 l Allergies, Adverse Reactions, Alerts Allergy Allergy Status Severity Reaction(s) Onset Inactive Treating Comm ents Source Name Type Date Date Clinician Ondanset Propensi Active Rash Janine mayela ty to 03-20 Seybold adverse 00:00: reaction 00 s Ondanset Propensi Active GI Per Method i mayela Hcl ty to Intolerance 3- patient st adverse 00:00: report Hospita reaction 00 l s to drug Ondanset Propensi Active Nausea Only Per K elsey mayela Hcl ty to 3- patient Seybold adverse 00:00: report reaction 00 s Family History Family Member Diagnosis Comments Start Date Stop Date Source Natural son [facility] Natural father GI problems [facility] Maternal grandfather No Known Problems [facility] Maternal grandmother No Known Problems [facility] mother Breast cancer [facility] Paternal grandfather No Known Problems [facility] Paternal grandmother No Known Problems [facility] Natural sister COPD [facility] Social History Social Habit Start Date Stop Date Quantity Comments Source Exposure to Not sure Janine dudley SARS-CoV-2 (event) Tobacco use and 2021-01-05 2021-01-05 Smokeless tobacco Lee Gillisarlene exposure 00:00:00 00:00:00 non-user Cigarettes smoked 2019-09-26 2019-09-[address] current (pack per 00:00:00 00:00:00 Hospita l day) - Reported Cigarette 2019-09-26 2019-09-26 [facility] pack-years 00:00:00 00:00:00 Hospital Alcohol intake 2019-09-26 2019-09-26 Current [facility] 00:00:00 00:00:00 non-drinker of Hospital alcohol (finding) Sex Ass[birth year] At [birth year] Janine baxter 00:00:00 00:00:00 Smoking Status Start Date Stop Date Source Tobacco smoking consumption [facility] unknown Never smoked tobacco Janine Gillis old Former smoker 2019-09-26 00:00:00 2019-09-26 00:00:00 [facility] Medications Ordered Filled Start Stop Current Ordering Indication Dosage Frequency Signature Comments Components Source Medication Medication Date Date Medication? Clinician (SIG) Name Name Levothyroxi 2020-06 Yes [id number] TAKE ONE Janine ne Sodium 1-15 TABLET BY Seybo ld 100 MCG 00:00: MOUTH oral Tablet 00 DAILY Levothyroxi 2020- Yes [id number] TAKE ONE Janine ne Sodium 1-15 TABLET BY Seybo ld 100 MCG 00:00: MOUTH oral Tablet 00 DAILY Cephalexin 2020-0 Yes Janine 500 MG oral 8-12 Seybold Capsule 00:00: 00 Cephalexin 2020-0 2020- No Janine 500 MG oral 8-12 -29 Seybold Capsule 00:00: 00:00 00 :00 Omeprazole 2020-0 Yes 40mg Take 1 Kelse y 40 MG oral 8-11 capsule Seybol d Delayed 00:00: (40 mg Release 00 total) by Capsule mouth 2 times daily Omeprazole 2020-0 Yes 40mg Take 1 Kelse y 40 MG oral 8-11 capsule Seybol d Delayed 00:00: (40 mg Release 00 total) by Capsule mouth 2 times daily Omeprazole 2020-0 Yes 40mg Take 1 Kelse y 40 MG oral 8-11 capsule Seybol d Delayed 00:00: (40 mg Release 00 total) by Capsule mouth 2 times daily Levothyroxi 2020-0 Yes [id number] 100ug Take 1 Janine ne Sodium 8-10 tablet Seybold 100 MCG 00:00: (100 mcg oral Tablet 00 total) by mouth daily Xelpros 2020-0 Yes INSTILL 1 Kelse y 0.005 % 8-05 DROP DAILY Seybol d ophthalmic 00:00: IN EACH Emulsion 00 EYE AT BEDTIME Xelpros 2020-0 Yes INSTILL 1 Kelse y 0.005 % 8-05 DROP DAILY Seybol d ophthalmic 00:00: IN EACH Emulsion 00 EYE AT BEDTIME Xelpros 2020-0 Yes INSTILL 1 Kelse y 0.005 % 8-05 DROP DAILY Seybol d ophthalmic 00:00: IN EACH Emulsion 00 EYE AT BEDTIME Lumigan Yes [id number] 1[drp] Place 1 K elsey 0.01 % 2-04 drop into Seybold ophthalmic 00:00: both eyes Solution 00 daily Lumigan Yes [id number] 1[drp] Place 1 K elsey 0.01 % 2-04 drop into Seybold ophthalmic 00:00: both eyes Solution 00 daily Lumigan Yes [id number] 1[drp] Place 1 K elsey 0.01 % 2-04 drop into Seybold ophthalmic 00:00: both eyes Solution 00 daily omeprazole 2020-0 Yes 40mg Q.5D Take 40 mg M ethodi (PriLOSEC) 3-[address] 40 MG 19:55: (two) Hospita capsule 18 times a l day. travoprost 2020-0 Yes 1[drp] QD 1 drop [facility] (TRAVATAN-Z 3-[address] ) 0.004 % 19:55: Hospita 18 l promethazin 2019-0 Yes 12.5mg Take 1 Me thodi e 3-[address] (PHENERGAN) 00:00: (12.5 mg Ho spita 12.5 MG 00 total) by l tablet mouth as needed for nausea or vomiting (before with meals). calcium 2020-0 Yes 1{tbl} Q.[id number] Take 1 Methodi citrate-vit 3-[id number] mayer D2 00:00: 3D mouth 3 Hospita 250-100 00 (three) l mg-unit per times a tablet day. Immunizations Ordered Immunization Filled Immunization Date Status Commen ts Source Name Name Tdap- (Boostrix, 2019-05-24 Completed Janine bean Adacel) 00:00:00 Influenza Virus 2019-05-24 Completed Janine baxter Vaccine, age 6 months 00:00:00 and up Tdap- (Boostrix, 2019-05-24 Completed Janine bean Adacel) 00:00:00 Influenza Virus 2019-05-24 Completed Janine baxter Vaccine, age 6 months 00:00:00 and up Tdap- (Boostrix, 2019-05-24 Completed Janine bean Adacel) 00:00:00 Influenza Virus 2019-05-24 Completed Janine Se ybold Vaccine, age 6 months 00:00:00 and up Influenza Virus 2018-05-13 Completed Janine Se ybold Vaccine, age 6 months 00:00:00 and up Influenza Virus 2018-05-13 Completed Janine Se ybold Vaccine, age 6 months 00:00:00 and up Influenza Virus 2018-05-13 Completed Janine Se ybold Vaccine, age 6 months 00:00:00 and up Influenza Virus 2017-05-05 Completed Janine Se ybold Vaccine, age 6 months 00:00:00 and up Influenza Virus 2017-05-05 Completed Janine Se ybold Vaccine, age 6 months 00:00:00 and up Influenza Virus 2017-05-05 Completed Janine Se ybold Vaccine, age 6 months 00:00:00 and up Influenza Virus 2016-05-02 Completed Janine Se ybold Vaccine, age 6 months 00:00:00 and up Influenza Virus 2016-05-02 Completed Janine Se ybold Vaccine, age 6 months 00:00:00 and up Influenza Virus 2016-05-02 Completed Janine Se ybold Vaccine, age 6 months 00:00:00 and up Pneumococcal Vaccine, 2014-10-10 Completed Khadar sey Seybold Polysaccharide 00:00:00 Pneumococcal Vaccine, 2014-10-10 Completed Khadar sey Seybold Polysaccharide 00:00:00 Pneumococcal Vaccine, 2014-10-10 Completed Khadar sey Seybold Polysaccharide 00:00:00 Influenza Virus 2014-06-01 Completed Janine Se ybold Vaccine, age 6 months 00:00:00 and up Influenza Virus 2014-06-01 Completed Janine Se ybold Vaccine, age 6 months 00:00:00 and up Influenza Virus 2014-06-01 Completed Janine Se ybold Vaccine, age 6 months 00:00:00 and up Vital Signs Vital Name Observation Time Observation Value Comments Source BMI 2021-06-25 16:20:00 20.08 kg/m2 Janine bean Systolic blood pressure 2021-06-25 16:20:00 122 mm[Hg] Janine Brunson Diastolic blood 2021-06-25 16:20:00 60 mm[Hg] Paloma Brunson pressure Heart rate 2021-06-25 16:20:00 60 /min Janine bean Body temperature 2021-06-25 16:20:00 36.5 Margaret Radha ey Seybold Respiratory rate 2021-06-25 16:20:00 16 /min Radha ey Seybold Body height 2021-06-25 16:20:00 175.3 cm Janine S eybold Body weight 2021-06-25 16:20:00 61.689 kg Janine S eybold Systolic blood pressure 2021-05-28 17:02:00 114 mm[Hg] Janine Seybold Diastolic blood 2021-05-28 17:02:00 74 mm[Hg] Kelse y Seybold pressure Heart rate 2021-05-28 17:02:00 73 /min Janine S eybold Body temperature 2021-05-28 17:02:00 36 Margaret Radha ey Seybold Respiratory rate 2021-05-28 17:02:00 16 /min Radha ey Seybold Body height 2021-05-28 17:02:00 175.3 cm Janine S eybold Body weight 2021-05-28 17:02:00 61.689 kg Janine S eybold BMI 2021-05-28 17:02:00 20.08 kg/m2 Janine S eybold Systolic blood pressure 2021-03-06 19:17:00 124 mm[Hg] Janine Seybold Diastolic blood 2021-03-06 19:17:00 72 mm[Hg] Kelse y Seybold pressure Body temperature 2021-03-06 19:17:00 36.61 Margaret Radha ey Seybold Respiratory rate 2021-03-06 19:17:00 15 /min Radha ey Seybold Body height 2021-03-06 19:17:00 175.3 cm Janine S eybold Body weight 2021-03-06 19:17:00 63.957 kg Janine S eybold BMI 2021-03-06 19:17:00 20.82 kg/m2 Janine S eybold Oxygen saturation in 2021-02-21 16:34:00 97 /min [facility] Arterial blood by Pulse oximetry Systolic blood pressure 2021-02-21 16:34:00 127 mm[Hg] [facility] Diastolic blood 2021-02-21 16:34:00 80 mm[Hg] [facility] pressure Heart rate 2021-02-21 16:34:00 102 /min [facility] Body temperature 2021-02-21 16:34:00 37.06 Margaret [facility] Respiratory rate 2021-02-21 16:34:00 16 /min [facility] Body height 2021-02-21 16:34:00 [facility]3 [facility] Body [facility] 2021-02-21 16:34:[facility] 2021-02-21 16:34:00 20[facility] Syst[facility] pressure 2021-02-07 18:58:00 137 mm[Hg] [facility] Diastolic blood 2021-02-07 18:58:00 85 mm[Hg] [facility] Heart rate 2021-02-07 18:58:00 93 [facility] Body temperature 2021-02-07 18:58:00 36.72 Margaret [facility] Respiratory rate 2021-02-07 18:58:00 18 /min [facility] Body height 2021-02-07 18:58:00 [facility] 2021-02-07 18:58:00 [facility] 2021-02-07 18:58:00 20.97 [facility] Procedures Procedure Date / Time Performed Performing Clinician [facility] rene CT ABDOMEN PELVIS WO CONTRAST 2021-02-14 [facility]45[facility] ESOPHAGUS 2021-02-07 17:00:00 [facility] FUNCTION Plan of Care Planned Activity Planned Date Details Comments Source Future Scheduled Test COVID-19 VACCINE (1) [facility] [code = COVID-19 VACCINE (1)] Future Scheduled Test SHINGLES VACCINES (#1) [facility] [code = SHINGLES VACCINES (#1)] Future Scheduled Test 65+ PNEUMOCOCCAL Me [facility] VACCINE (1 of 1 - PPSV23) [code = 65+ PNEUMOCOCCAL VACCINE (1 of 1 - PPSV23)] Future Scheduled Test INFLUENZA VACCINE [code [facility] = INFLUENZA VACCINE] Encounters Start End Encounter Admission Attending Care Care Encounter Source Date/Time Date/Time Type Type Clinicians Facility Department ID 2021-05-17 Outpatient BANKI, [facility] [id number] [place] 01:03:29 [facility] 2021-06-25 2021-06-25 Office KARLI Sweet [id number] Janine 10:30:00 10:30:00 Visit OANH Souza [id number] Se ybold [id number] 2021-05-28 2021-05-28 Outpatient LAB90 JANINE GARIBAY [id number] Janine 12:15:00 12:15:00 Seybol d 2021-05-28 2021-05-28 Office KarliKee arevalo [id number] Janine 11:15:00 12:00:00 Visit Oanh Souza [id number] Se ybold Somogyi [id number] 2021-03-09 2021-03-09 Outpatient JANINE PRATER [id number] Janine 00:00:00 00:00:00 OANH Seybol d 2021-03-06 2021-03-06 Outpatient LAB90 JANINE GARIBAY [id number] Janine 15:15:00 15:15:00 Seybol d 2021-03-06 2021-03-06 Office KarliKee arevalo [id number] Janine 14:14:32 14:44:32 Visit Oanh Souza [id number] Se ybold Somogyi [id number] 2021-02-21 2021-02-[address] [facility] [id number] [place] 11:30:37 11:56:07 Visit [facility] MED [id number] [place] [address] [id number] 2021-02-15 2021-02-15 Outpatient BANKI, MHSE MHSE [id number] MH 09:12:00 14:53:00 [facility] 2021-02-14 2021-02-14 Outpatient BANKI, MHSE MHSE [id number] MH 10:02:00 23:59:00 [facility] 2021-02-08 2021-02-08 EXT MHH OP Banki, EXT MSRDP [id number] [place] 00:00:00 00:00:00 [facility] LOCATION [id number] Health [id number] 2021-02-07 2021-02-07 Outpatient BANKI, MHSE MHSE [id number] MH 11:32:00 23:59:00 [facility] 2021-02-07 2021-02-07 Office Banki, UTP MHH [id number] [place] 13:50:26 15:04:33 Visit [id number] [facility] [id number] 2021-02-06 2021-02-06 EXT MHH OP Banki, EXT MSRDP [id number] [place] 00:00:00 00:00:00 [facility] LOCATION [id number] Health [id number] 2021-02-02 2021-02-02 Outpatient LAB90 JANINE GARIBAY [id number] Janine 14:15:00 14:15:00 Seybol d 2021-02-02 2021-02-02 Outpatient JANINE RPATER [id number] Janine 13:30:00 13:30:00 OANH Seybol d 2021-01-18 2021-01-18 Outpatient JANINE BELTRAN [id number] Janine 00:00:00 00:00:00 MUHAMMED Seybo ld 2021-01-05 2021-01-05 Outpatient LAB90 JANINE GARIBAY [id number] Janine 11:40:00 11:40:00 Seybol d 2021-01-05 2021-01-05 Outpatient JANINE PRATER [id number] Janine 10:30:00 10:30:00 OANH Seybol d Results This patient has no known results.
[2021-09-22] MEDS ORDERED: NA CHLORIDE 0.9% 500 ML ONE (12:40)
[2021-09-22 12:44] LABS: Absolute Lymphocytes (CBC) 0.8 K/uL (0.7-4.9); Hematocrit 39.6 % (39.6-49.0); Lymphocytes % 7.5 % (15.3-44.8); MPV 8.2 fL (7.6-11.3); RBC Red Blood Cell Count 3.89 M/uL (4.33-5.43)
[2021-09-22 13:31] LABS: Albumin 2.8 g/dL (3.4-5.0); Bilirubin Total 0.4 mg/dL (0.2-1.0); Potassium 4.3 mmol/L (3.5-5.1)
--- NOTE | 2021-09-22 13:48 | RAD REPORT ---
EXAM DESCRIPTION: RAD - Chest Pa And Lat (2 Views) - 09/22/2021 1:38 pm CLINICAL HISTORY: COUGH COMPARISON: Chest Pa And Lat (2 Views) dated 09/30/2019; Chest Pa And Lat (2 Views) dated 09/13/2019; C hest Pa And Lat (2 Views) dated 05/27/2018; Chest Single View dated 04/22/2018; CTANGIO CHEST dated FINDINGS: Lines: None. Lungs: Persistent irregular opacities in the right upper lobe. These are mildly improved compared wit h 09/30/2019 though there is some increased volume loss suggestive of scarring. Pleural: No significant pleural effusions or pneumothorax. Cardiac: The heart size is within normal limits. Bones: No acute fractures. Other: IMPRESSION: Right upper lobe scarring without superimposed acute process identified.
[2021-09-22 14:06] LABS: SARS-COV-2 RT PCR POSITIVE (NEGATIVE)
--- NOTE | 2021-09-22 16:43 | EDPHYS ---
Physician Documentation [facility] Name: Abhay Morocho Age: 86 yrs Sex: Male : 1935 Arrival Date: 09/22/2021 Time: 11:23 Bed 20 Private MD: ED Physician Albert Triana HPI: 09/22 12:15 This 86 yrs old Unknown Male presents to ER via Ambulatory with complaints of Sick. pm1 12:15 The patient presents to the emergency department with general weakness and cough. pm1 Onset: The symptoms/episode began/occurred generalized weakness for 3-4 months that is worse the past few days with productive cough. Associated signs and symptoms: Pertinent positives: decreased appetite, Pertinent negatives: fever, chest pain, shortness of breath, n/v/d. Severity of symptoms: in the emergency department the symptoms are worse Pain is currently a 0 / 10. The patient has not experienced similar symptoms in the past. The patient has not recently seen a physician. Historical: - Allergies: 11:39 Zofran; ab2 - PMHx: 11:39 GERD; Thyroid problem; ab2 - Immunization history:: Adult Immunizations up to date, Client reports having NOT received the Covid vaccine. - Social history:: Smoking status: Patient denies any tobacco usage or history of. ROS: 12:15 Eyes: Negative for injury, pain, redness, and discharge, ENT: Negative for injury, pm1 pain, and discharge, Cardiovascular: Negative for chest pain, palpitations, and edema. 12:15 Abdomen/GI: Negative for abdominal pain, nausea, vomiting, diarrhea, and constipation, Back: Negative for injury and pain, : Negative for injury, bleeding, discharge, and swelling, MS/Extremity: Negative for injury and deformity, Skin: Negative for injury, rash, and discoloration. 12:15 Constitutional: Positive for decreased appetite, Negative for fever. 12:15 Respiratory: Positive for cough, Negative for shortness of breath, wheezing. 12:15 Neuro: Positive for generalized weakness, Negative for dizziness, headache, numbness, tingling. 12:15 All other systems are negative. Exam: 12:15 Constitutional: This is a well developed, well nourished patient who is awake, alert, pm1 and in no acute distress. Head/Face: Normocephalic, atraumatic. Respiratory: Lungs have equal breath sounds bilaterally, clear to auscultation and percussion. No rales, rhonchi or wheezes noted. No increased work of breathing, no retractions or nasal flaring. Abdomen/GI: Soft, non-tender, with normal bowel sounds. No distension or tympany. No guarding or rebound. No evidence of tenderness throughout. 12:15 Back: No spinal tenderness. No costovertebral tenderness. Full range of motion. Skin: Warm, dry with normal turgor. Normal color with no rashes, no lesions, and no evidence of cellulitis. MS/ Extremity: Pulses equal, no cyanosis. Neurovascular intact. Full, normal range of motion. 12:15 Cardiovascular: Exam negative for acute changes, Rate: normal, Rhythm: irregular, Pulses: no pulse deficits are appreciated, Heart sounds: normal. 12:15 Neuro: Exam negative for acute changes, Orientation: is normal, Mentation: is normal, Motor: is normal, moves all fours. Vital Signs: 11:35 BP 159 / 95; Pulse 115; Resp 20; Temp 98.7(TE); Pulse Ox 97% on R/A; Weight 61.23 kg; ab2 Height 5 ft. 9 in. (175.26 cm); Pain 0/10; 12:40 BP 130 / 90; Pulse 114; Resp 19 S; Pulse Ox 97% on R/A; jd3 13:50 BP 143 / 85; Pulse 110; Resp 17 S; Pulse Ox 97% on R/A; jd3 14:51 BP 122 / 79; Pulse 80; Resp 16 S; Pulse Ox 97% on R/A; jd3 15:33 BP 127 / 76; Pulse 80; Resp 18 S; Pulse Ox 97% on R/A; jd3 17:32 BP 132 / 83; Pulse 83; Resp 18 S; Pulse Ox 97% on R/A; jd3 11:35 Body Mass Index 19.94 (61.23 kg, 175.26 cm) ab2 MDM: 12:10 Patient medically screened. [facility] 16:14 Data reviewed: vital signs. Data interpreted: Pulse oximetry: on room air is 97 %. pm1 Interpretation: normal. 16:42 Counseling: I had a detailed discussion with the patient and/or guardian regarding: the pm1 historical points, exam findings, and any diagnostic results supporting the discharge/admit diagnosis, lab results, radiology results, the need for outpatient follow up, to return to the emergency department if symptoms worsen or persist or if there are any questions or concerns that arise at home. 09/22 12:13 Order name: CBC with Diff; Complete Time: 13:01 pm1 09/22 12:13 Order name: CMP; Complete Time: 13:39 pm1 09/22 12:13 Order name: Chest Pa And Lat (2 Views) XRAY; Complete Time: 14:10 pm1 09/22 12:13 Order name: COVID-19/FLU A+B (Document "Date of Onset" if Symptomatic); Complete Time: pm1 14:10 09/22 13:05 Order name: TSH; Complete Time: 14:10 pm1 09/22 12:13 Order name: IV Saline Lock; Complete Time: 12:36 pm1 09/22 12:13 Order name: EKG; Complete Time: 12:14 pm1 09/22 12:13 Order name: EKG - Nurse/Tech; Complete Time: 12:39 pm1 Administered Medications: 12:39 Drug: NS 0.9% 500 ml Route: IV; Rate: bolus; Site: left antecubital; bp 13:35 Follow up: Response: No adverse reaction; IV Status: Completed infusion jd3 Disposition Summary: 09/22/21 16:43 Discharge Ordered Location: Home pm1 Problem: new pm1 Symptoms: have improved pm1 Condition: Stable pm1 Diagnosis - Coronavirus infection, unspecified pm1 Followup: pm1 - With: Emergency Department - When: As needed - Reason: Worsening of condition Followup: pm1 - With: Private Physician - When: 2 - 3 days - Reason: Recheck today's complaints, Continuance of care, Re-evaluation by your physician Discharge Instructions: - Discharge Summary Sheet pm1 - COVID-19 pm1 - COVID-19 Frequently Asked Questions pm1 - 10 Things You Can Do to Manage Your COVID-19 Symptoms at Home - [facility] pm1 - COVID-19: Quarantine vs. Isolation - [facility] pm1 Forms: - Medication Reconciliation Form pm1 - Thank You Letter pm1 - Antibiotic Education pm1 - Prescription Opioid Use pm1 Addendum: 09/26/2021 07:08 Co-signature as Attending Physician, Albert Triana MD I agree with the assessment and c melgar plan of care. Signatures: Dispatcher [employer] EDAlbert Pal MD MD cha Marinas, Patrick, PLANNING ASSISTANT PLANNING ASSISTANT pm1 Davi Watkins, RN RN Misael Guerra ab2 Neri García RN jd3 Corrections: (The following items were deleted from the chart) 09/22 11:40 11:39 Allergies: unknown nausea medication "starts with Z" causes severe constipation; ab2 ab2
--- NOTE | 2021-09-22 16:43 | ER ---
Nurse's Notes [facility] Name: Abhay Morocho Age: 86 yrs Sex: Male : 1935 Arrival Date: 09/22/2021 Time: 11:23 Bed 20 Private MD: Diagnosis: Coronavirus infection, unspecified Presentation: 09/22 11:35 Chief complaint: Patient states: "I feel terrible, I've been coughing up junk. I have a ab2 fever sometimes and my blood pressure is high. I've been putting it off for a week or two but I need to figure out what's going on." Pt denies chest pain or SOB. Pt denies n/v/d. Pt states he was diagnosed with skin cancer 3 weeks ago. Coronavirus screen: Vaccine status: Patient reports being unvaccinated. Client denies travel out of the [place] in the last 14 days. At this time, the client does not indicate any symptoms associated with coronavirus-19. Ebola Screen: Patient negative for fever greater than or equal to 101.5 degrees Fahrenheit, and additional compatible Ebola Virus Disease symptoms Patient denies exposure to infectious person. Patient denies travel to an Ebola-affected area in the 21 days before illness onset. No symptoms or risks identified at this time. Initial Sepsis Screen: Does the patient meet any 2 criteria? No. Patient's initial sepsis screen is negative. Does the patient have a suspected source of infection? No. Patient's initial sepsis screen is negative. Risk Assessment: Do you want to hurt yourself or someone else? Patient reports no desire to harm self or others. Onset of symptoms is unknown. 11:35 Method Of Arrival: Ambulatory ab2 11:35 Acuity: ALMAS 3 ab2 Triage Assessment: 11:41 General: Appears in no apparent distress. comfortable, Behavior is calm, cooperative, ab2 appropriate for age. Pain: Denies pain. Neuro: Level of Consciousness is awake, alert, obeys commands, Oriented to person, place, time, situation, Appropriate for age Moves all extremities. Gait is steady. Cardiovascular: Denies chest pain, shortness of breath. GI: Patient currently denies diarrhea, nausea, vomiting. Historical: - Allergies: 11:39 Zofran; ab2 - PMHx: 11:39 GERD; Thyroid problem; ab2 - Immunization history:: Adult Immunizations up to date, Client reports having NOT received the Covid vaccine. - Social history:: Smoking status: Patient denies any tobacco usage or history of. Screenin:40 Abuse screen: Denies threats or abuse. Nutritional screening: No deficits noted. jd3 Tuberculosis screening: No symptoms or risk factors identified. Fall Risk Ambulatory Aid- None/Bed Rest/Nurse Assist (0 pts). Gait- Normal/Bed Rest/Wheelchair (0 pts) Mental Status- Oriented to own ability (0 pts). Total Anguiano Fall Scale indicates No Risk (0-24 pts). Assessment: 12:39 General: Appears in no apparent distress. comfortable, Behavior is calm, cooperative, jd3 appropriate for age, Reports feeling ill for > 3 days. Pain: Denies pain. Neuro: Level of Consciousness is awake, alert, obeys commands, Oriented to person, place, time, situation. Cardiovascular: Denies chest pain, Capillary refill < 3 seconds Patient's skin is warm and dry. Rhythm is sinus tachycardia. Respiratory: Reports "small cough over the past couple of weeks" Airway is patent Respiratory effort is even, unlabored, Respiratory pattern is regular, symmetrical, Denies shortness of breath. GI: No signs and/or symptoms were reported involving the gastrointestinal system. Patient currently denies diarrhea, nausea, vomiting. : No signs and/or symptoms were reported regarding the genitourinary system. EENT: No signs and/or symptoms were reported regarding the EENT system. Derm: Skin is intact, Skin is dry, Skin is normal, Skin temperature is warm. Musculoskeletal: Circulation, motion, and sensation intact. Range of motion: intact in all extremities. 13:51 Reassessment: Patient appears in no apparent distress at this time. No changes from jd3 previously documented assessment. Patient and/or family updated on plan of care and expected duration. Pain level reassessed. Patient is alert, oriented x 3, equal unlabored respirations, skin warm/dry/pink. 14:51 Reassessment: Patient appears in no apparent distress at this time. No changes from jd3 previously documented assessment. Patient and/or family updated on plan of care and expected duration. Pain level reassessed. Patient is alert, oriented x 3, equal unlabored respirations, skin warm/dry/pink. 15:31 Reassessment: Patient appears in no apparent distress at this time. Patient and/or jd3 family updated on plan of care and expected duration. Pain level reassessed. Patient is alert, oriented x 3, equal unlabored respirations, skin warm/dry/pink. resting with eyes closed, even and unlabored respirations. call dan in reach. 17:32 Reassessment: Patient appears in no apparent distress at this time. Patient and/or jd3 family updated on plan of care and expected duration. Pain level reassessed. Patient is alert, oriented x 3, equal unlabored respirations, skin warm/dry/pink. Patient states feeling better. Vital Signs: 11:35 BP 159 / 95; Pulse 115; Resp 20; Temp 98.7(TE); Pulse Ox 97% on R/A; Weight 61.23 kg; ab2 Height 5 ft. 9 in. (175.26 cm); Pain 0/10; 12:40 BP 130 / 90; Pulse 114; Resp 19 S; Pulse Ox 97% on R/A; jd3 13:50 BP 143 / 85; Pulse 110; Resp 17 S; Pulse Ox 97% on R/A; jd3 14:51 BP 122 / 79; Pulse 80; Resp 16 S; Pulse Ox 97% on R/A; jd3 15:33 BP 127 / 76; Pulse 80; Resp 18 S; Pulse Ox 97% on R/A; jd3 17:32 BP 132 / 83; Pulse 83; Resp 18 S; Pulse Ox 97% on R/A; jd3 11:35 Body Mass Index 19.94 (61.23 kg, 175.26 cm) ab2 ED Course: 11:23 Patient arrived in ED. rg4 11:39 Triage completed. ab2 11:41 Arm band placed on left wrist. ab2 11:44 Neri García RN is Primary Nurse. jd3 11:50 Todd Kowalski NP is PHCP. pm1 11:50 Albert Triana MD is Attending Physician. pm1 12:34 Inserted. mb7 12:35 Inserted saline lock: 20 gauge in left antecubital area, using aseptic technique. mb7 12:40 Patient has correct armband on for positive identification. Bed in low position. Call jd3 light in reach. Side rails up X 1. Pulse ox on. NIBP on. 12:43 EKG done, by ED staff, reviewed by Todd Kowalski NP. mb7 13:40 Chest Pa And Lat (2 Views) XRAY In Process Unspecified. EDMS 17:33 No provider procedures requiring assistance completed. IV discontinued, intact, jd3 bleeding controlled, No redness/swelling at site. Pressure dressing applied. Administered Medications: 12:39 Drug: NS 0.9% 500 ml Route: IV; Rate: bolus; Site: left antecubital; bp 13:35 Follow up: Response: No adverse reaction; IV Status: Completed infusion jd3 Outcome: 16:43 Discharge ordered by MD. pm1 17:33 Discharged to home ambulatory. jd3 17:33 Condition: stable 17:33 Discharge instructions given to patient, Instructed on discharge instructions, follow up and referral plans. Demonstrated understanding of instructions, follow-up care. 17:33 Patient left the ED. jd3 Signatures: Dispatcher [employer] EDMS Todd Kowalski NP SUPERVIS[employer] pm1 Kaila Nielson rg4 Neri García RN RN jd3 Davi Watkins RN RN bp Breneman, Mary mb7 Misael Sultana ab2 Corrections: (The following items were deleted from the chart) 11:40 11:39 Allergies: unknown nausea medication "starts with Z" causes severe constipation; ab2 ab2 11:41 11:35 Chief complaint: Patient states: "I feel terrible, I've been coughing up junk. I ab2 have a fever sometimes and my blood pressure is high. I've been putting it off for a week or two but I need to figure out what's going on." Pt denies chest pain or SOB. Pt denies n/v/d. ab2 12:41 12:39 Cardiovascular: Denies chest pain, Capillary refill < 3 seconds Patient's skin is jd3 warm and dry. Rhythm is regular jd3
[2021-09-22 18:07] VITALS: TEMP 98.7; O2SAT 97
[2021-09-22 18:13] VITALS: BP 132/83
--- NOTE | 2021-09-24 09:29 | EKG ---
Test Date: 2021-09-22 Test Time: 12:43:22 Spanner Operator: WARNER MEASUREMENT RESULTS: Intervals: Rate: 82 AL: QRSD: 80 QT: 374 QTc: 436 [place]: P: AL: QRS: 86 T: 46 INTERPRETIVE STATEMENTS: Atrial fibrillation Abnormal ECG Compared to ECG 09/22/2021 12:42:51 No significant changes Electronically Signed On 09-24-21 09:25:59 CDT by Lucius Harmon
--- NOTE | 2021-09-24 09:29 | EKG ---
Test Date: 2021-09-22 Test Time: 12:42:51 Slurry Blender: MBHola MEASUREMENT RESULTS: Intervals: Rate: 78 TN: QRSD: 80 QT: 380 QTc: 433 [place]: P: TN: QRS: 87 T: 51 INTERPRETIVE STATEMENTS: Undetermined rhythm Otherwise normal ECG Compared to ECG 03/20/2020 23:17:53 Atrial fibrillation no longer present Left posterior fascicular block no longer present Myocardial infarct finding no longer present Electronically Signed On 09-24-21 09:26:00 CDT by Lucius Harmon
== END 2021-09-22 17:33 | disposition home or self-care (01) ==
LOC: ER 11:20
DX: U07.1 COVID-19 (principal); K21.9 Gastro-esophageal reflux disease without esophagitis; Z88.8 Allergy status to other drugs, medicaments and biological substances
CPT/HCPCS: 93005 ×2; 85025; 36415; 84443; 80053; 0240U; 71046; 96360; 99284; J7040

== ENCOUNTER 2021-10-14 09:21 | Inpatient (IN) | payer OTHER ==
--- OUTSIDE RECORDS SUMMARY | 2021-10-14 09:26 | XMS REPORT | Continuity of Care Document ---
:[address] [facility] t Address [address] [place] [address] Care Team Providers Name Role Phone No Primary Care Physician Unavailable MEGAN Attending Clinician Unavailable CHRISTY PRATER Attending Clinician Unavailable LAB90 Attending Clinician Unavailable Christy Prater MD Attending Clinician Yeison BELTRAN Attending Clinician Unavailable Payers Payer Name Policy Type Policy Number Effective Date Expiration Date S obed MEDICARE PART A [id number] 1998 AND B 00:00:00 MEDICARE-PART B 5 [id number] 2006 00:00:00 AETNA 2 [id number] 2020 00:00:00 Problems Condition Condition Condition Status [...] 00 inhibitor inhibitor - - Unchanged Unchanged Hypothyroi Hypothyroi Disease Active Fredrick frias dism dism 09-25 Seybold 00:00: 00 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 Formattin g of this note might be different from the original. 5.2 cm NSVT NSVT Disease Active Methodi (nonsustai (nonsustai 09-25 salvador salvador 00:00: Hospita ventricula ventricula 00 l r r tachycardi tachycardi a) a) Constipati Constipati Disease Active M ethodi on on 09-25 00:00: Hospita 00 l Normocytic Normocytic Disease Active M ethodi anemia anemia 09-25 00:00: Hospita 00 l Hypoalbumi Hypoalbumi Disease Active M ethodi nemia due nemia due 09-25 to to 00:00: Hospita protein-ca protein-ca 00 l [place] malnutriti malnutriti on on Abdominal Abdominal Disease Active Met hodi pain pain 09-21 00:00: Hospita 00 l Small Small Disease Active Method[facility] bowel bowel 09-21 obstructio obstructio 00:00: Ho spita n n 00 l Bezoar Bezoar Disease Active Methodi 09-21 st 00:00: Hospita 00 l 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 09-21 [place] 00:00: Hospita malnutriti malnutriti 00 l on on Status Status Disease Active Janine post post 11-13 Seybold laparoscop laparoscop 00:00: ic ic 00 fundoplica fundoplica tion tion Status Status Disease Active [facility] 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 GERD GERD Disease Active Methodi (gastroeso (gastroeso 11-13 phageal phageal 00:00: Hospita reflux reflux 00 l disease) disease) Pharyngoes Pharyngoes Disease Active M ethodi ophageal ophageal 5-[address] dysphagia dysphagia 00:00: Hosp [facility] 00 l Allergies, Adverse Reactions, Alerts Allergy Allergy Status Severity Reaction(s) Onset Inactive Treating Comm ents Source Name Type Date Date Clinician Marta Cruzensi Active Rash Janine mayela ty to 03-20 Seybold adverse 00:00: reaction 00 s Ondanset Propensi Active GI Per Method i mayela Hcl ty to Intolerance 09-[address] adverse 00:00: report Hospita reaction 00 l s to drug Ondanset Propensi Active Nausea Only Per K elsey mayela Hcl ty to 09-22 patient Seybold adverse 00:00: report reaction 00 s Family History Family Member Diagnosis Comments Start Date Stop Date Source Natural father GI problems [facility] Maternal grandfather No Known Problems [facility] Maternal grandmother No Known Problems [facility] mother Breast cancer [facility] Paternal grandfather No Known Problems [facility] Paternal grandmother No Known Problems [facility] sister COPD [facility] son [facility] Social History Social Habit Start Date Stop Date Quantity Comments Source Exposure to Not sure Janine dudley SARS-CoV-2 (event) Tobacco use and 2021-01-05 2021-01-05 Smokeless tobacco Lee duyen Gillisold exposure 00:00:00 00:00:00 non-user Cigarettes smoked 2019-09-26 2019-09-[address] current (pack per 00:00:00 00:00:00 Hospita l day) - Reported Cigarette 2019-09-26 2019-09-26 Mu-Ism pack-years 00:00:00 00:00:00 Hospital Alcohol intake 2019-09-26 2019-09-26 Current Mu-Ism 00:00:00 00:00:00 non-drinker of Hospital alcohol (finding) Sex Ass[birth year] At [birth year] Janine baxter 00:00:00 00:00:00 Smoking Status Start Date Stop Date Source Tobacco smoking consumption [facility] unknown Never smoked tobacco Janine Gillis old Former smoker 2019-09-26 00:00:00 2019-09-26 00:00:00 [facility] Medications Ordered Filled Start Stop Current Ordering Indication Dosage Frequency Signature Comments Components Source Medication Medication Date Date Medication? Clinician (SIG) Name Name Levothyroxi 2020-06 Yes [id number] TAKE ONE Janine ne Sodium 1-15 TABLET BY Seybo ld 100 MCG 00:00: MOUTH oral Tablet 00 DAILY Levothyroxi 2020-06 Yes [id number] TAKE ONE Janine ne Sodium 1-15 TABLET BY Seybo ld 100 MCG 00:00: MOUTH oral Tablet 00 DAILY Cephalexin 2020-0 Yes Janine 500 MG oral 8-12 Seybold Capsule 00:00: 00 Cephalexin 2020-0 2020- No Janine 500 MG oral 8-12 11-29 Seybold Capsule 00:00: 00:00 00 :00 Omeprazole 2020-0 Yes 40mg Take 1 Kelse y 40 MG oral 8-11 capsule Seybol d Delayed 00:00: (40 mg Release 00 total) by Capsule mouth 2 times daily Omeprazole 0 Yes 40mg Take 1 Kelse y 40 MG oral 8-11 capsule Seybol d Delayed 00:00: (40 mg Release 00 total) by Capsule mouth 2 times daily Omeprazole 0 Yes 40mg Take 1 Kelse y 40 MG oral 8-11 capsule Seybol d Delayed 00:00: (40 mg Release 00 total) by Capsule mouth 2 times daily Levothyroxi Yes [id number] 100ug Take 1 Janine ne Sodium 8-10 tablet Seybold 100 MCG 00:00: (100 mcg oral Tablet 00 total) by mouth daily Xelpros Yes INSTILL 1 Kelse y 0.005 % 8-05 DROP DAILY Seybol d ophthalmic 00:00: IN EACH Emulsion 00 EYE AT BEDTIME Xelpros Yes INSTILL 1 Kelse y 0.005 % 8-05 DROP DAILY Seybol d ophthalmic 00:00: IN EACH Emulsion 00 EYE AT BEDTIME Xelpros 0 Yes INSTILL 1 Kelse y 0.005 % 8-05 DROP DAILY Seybol d ophthalmic 00:00: IN EACH Emulsion 00 EYE AT BEDTIME Lumigan Yes [id number] 1[drp] Place 1 K elsey 0.01 % 2-04 drop into Seybold ophthalmic 00:00: both eyes Solution 00 daily Lumigan Yes [id number] 1[drp] Place 1 K elsey 0.01 % 2-04 drop into Seybold ophthalmic 00:00: both eyes Solution 00 daily Lumigan 0 Yes [id number] 1[drp] Place 1 K elsey 0.01 % [...] nausea or vomiting (before with meals). calcium 2019-0 Yes 1{tbl} [id number] Take 1 Methodi citrate-vit 3-[id number] mayer D2 00:00: 3D mouth 3 Hospita 250-100 00 (three) l mg-unit per times a tablet day. Immunizations Ordered Immunization Filled Immunization Date Status Commen ts Source Name Name Tdap- (Boostrix, 2019-05-24 Completed Janine bean Adacel) 00:00:00 Influenza Virus 2019-05-24 Completed Janine ybold Vaccine, age 6 months 00:00:00 and [...] Source BMI 2021-06-25 16:20:00 20.08 kg/m2 Janine Gael lloyddany Systolic blood pressure 2021-06-25 16:20:00 122 mm[Hg] Janine Hernandezybarlene Diastolic blood 2021-06-25 16:20:00 60 mm[Hg] Khadar y Seybold pressure Heart rate 2021-06-25 16:20:00 60 /min Janine Gael geneva Body temperature 2021-06-25 16:20:00 36.5 Margaret Radha Brunson Respiratory rate 2021-06-25 16:20:00 16 /min Radha lloyd Seybarlene Body height 2021-06-25 16:20:00 175.3 cm Janinepj bean Body weight 2021-06-25 16:20:00 61.689 kg Janine [...] 2021-03-06 19:17:00 20.82 kg/m2 Janine S eybold Systolic blood pressure 2021-02-21 16:34:00 127 mm[Hg] [facility] Diastolic blood 2021-02-21 16:34:00 80 mm[facility]Hg] [facility] Heart rate 2021-02-21 16:34:00 102 [facility] Body temperature 2021-02-21 16:34:00 37.06 Margaret [facility] Respiratory rate 2021-02-21 16:34:00 16 /min [facility] Body height 2021-02-21 16:34:00 [facility] Body weight 2021-02-21 16:34:00 63.776 kg [facility] BMI 2021-02-21 16:34:00 20.76 kg/m2 [facility] Oxygen saturation in 2021-02-21 16:34:00 97 /min [facility] Arterial blood by Pulse oximetry Systolic blood pressure 2021-02-07 18:58:00 137 mm[Hg] [facility] Diastolic blood 2021-02-07 18:58:00 85 mm[Hg] [facility] alth pressure Heart rate 2021-02-07 18:58:00 93 /min [facility] Body temperature 2021-02-07 18:58:00 36.72 Margaret [facility] Respiratory rate 2021-02-07 18:58:00 18 /min [facility] Body height 2021-02-07 18:58:00 175.3 cm [facility] Body weight 2021-02-07 18:58:00 64.411 kg [facility] BMI 2021-02-07 18:58:00 20.97 kg/m2 [facility] Procedures Procedure Date / Time Performed Performing Clinician [facility] e CT ABDOMEN PELVIS WO CONTRAST 2021-02-14 15:45:00 [facility] [place] BARIUM SWALLOW W ESOPHAGUS 2021-02-07 17:00:00 [facility] FUNCTION Plan of Care Planned Activity Planned Date Details Comments Source Future Scheduled Test COVID-19 VACCINE (1) [facility] [code = COVID-19 VACCINE (1)] Future Scheduled Test SHINGLES VACCINES (#1) [facility] [code = SHINGLES VACCINES (#1)] Future Scheduled Test 65+ PNEUMOCOCCAL [facility] VACCINE (1 of 1 - PPSV23) [code = 65+ PNEUMOCOCCAL VACCINE (1 of 1 - PPSV23)] Future Scheduled Test INFLUENZA VACCINE [code [facility] = INFLUENZA VACCINE] Encounters Start End Encounter Admission Attending Care Care Encounter Source Date/Time Date/Time Type Type Clinicians Facility Department ID 2021-05-17 Outpatient [facility] [id number] [place] 01:03:29 [facility] 2021-06-25 2021-06-25 Office Kee PRATER [id number] Janine 10:30:00 10:30:00 Visit OANH Souza [id number] Se ybold [id number] 2021-05-28 2021-05-28 Outpatient LAB90 JANINE GARIBAY [id number] Janine 12:15:00 12:15:00 Seybol d 2021-05-28 2021-05-28 Office Kee Prater [id number] Janine 11:15:00 12:00:00 Visit Oanh Souza [id number] Se ybarlene Somogyi [id number] 2021-03-09 2021-03-09 Outpatient JANINE PRATER [id number] Janine 00:00:00 00:00:00 OANH Seybol d 2021-03-06 2021-03-06 Outpatient LAB90 JANINE GARIBAY [id number] Janine 15:15:00 15:15:00 Seybol d 2021-03-06 2021-03-06 Office Kee Prater [id number] Janine 14:14:32 14:44:32 Visit Oanh Souza [id number] Se ybarlene Somogyi [id number] 2021-02-21 2021-02-21 [facility] [id number] [place] 11:30:37 11:56:07 Visit [facility] SE MED [id number] H ealth [address] 1 [id number] 2021-02-08 2021-02-08 EXT [facility] OP Bank, EXT MSRDP [id number] [place] 00:00:00 00:00:00 [facility] [id number] Health [id number] 2021-02-07 2021-02-07 Office Banki, UTP MH [id number] [place] 13:50:26 15:04:33 Visit Susy SE MED [id number] [address] 1 [id number] 2021-02-06 2021-02-06 EXT [facility] OP Megan, EXT MSRDP [id number] [place] 00:00:00 00:00:00 [facility] LOCATION [id number] Health [id number] 2021-02-02 2021-02-02 Outpatient LAB90 JANINE GARIBAY [id number] Janine 14:15:00 14:15:00 Seybol d 2021-02-02 2021-02-02 Outpatient JANINE PRATER [id number] Janine 13:30:00 13:30:00 OANH Seybol d 2021-01-18 2021-01-18 Outpatient JANINE BELTRAN [id number] Janine 00:00:00 00:00:00 KAVITA Gilliso ld 2021-01-05 2021-01-05 Outpatient LAB90 JANINE GARIBAY [id number] Janine 11:40:00 11:40:00 Seybol d 2021-01-05 2021-01-05 Outpatient JANINE PRATER [id number] Janine 10:30:00 10:30:00 OANH Seybol d Results This patient has no known results.
[2021-10-14] MEDS ORDERED: METOPROLOL TAR 50 MG TAB ONE (09:50)
[2021-10-14] MEDS ORDERED: DIGOXIN 0.25 MG/ML AMP ONE (09:51)
[2021-10-14] MEDS ORDERED: ENOXAPARIN 60 MG/0.6 ML SQ ONE (09:51)
[2021-10-14] MEDS ORDERED: NA CHLORIDE 0.9% 1,000 ML ONE (09:51)
[2021-10-14] MEDS ORDERED: METOPROLOL TARTRATE 5 MG/5 ML INJ IV ONE (09:51)
[2021-10-14] MEDS ORDERED: NA CHLORIDE 0.9% 500 ML ONE ×2 (09:51→11:07)
[2021-10-14] MEDS ORDERED: FAMOTIDINE 20 MG/2 ML VIAL IV ONE (09:51)
[2021-10-14 09:53] LABS: Absolute Lymphocytes (CBC) 0.9 K/uL (0.7-4.9); Hematocrit 43.7 % (39.6-49.0); Lymphocytes % 3.1 % (15.3-44.8); MPV 8.2 fL (7.6-11.3); RBC Red Blood Cell Count 4.28 M/uL (4.33-5.43)
[2021-10-14 10:14] LABS: Albumin 2.7 g/dL (3.4-5.0); Bilirubin Direct 0.4 mg/dL (0-0.2); Bilirubin Total 0.9 mg/dL (0.2-1.0); Magnesium 2.4 mg/dL (1.8-2.4); Potassium 3.5 mmol/L (3.5-5.1); Protein, Total 7.8 g/dL (6.4-8.2); Troponin High Sensitivity 7.4 pg/mL (<58.9)
[2021-10-14 10:20] LABS: Thyroid Stimulating Hormone 8.69 uIU/mL (0.360-3.740)
--- NOTE | 2021-10-14 10:47 | ER ---
Nurse's Notes [facility] Name: Abhay Morocho Age: 86 yrs Sex: Male : 1935 Arrival Date: 10/14/2021 Time: 09:26 Bed 15 Private MD: Diagnosis: Pneumonia, unspecified organism-bilateral;Chest pain on breathing;Persistent atrial fibrillation-with RVR, NEW ONSET;Elevated white blood cell count;Pleural effusion in other conditions classified elsewhere;Bandemia;Coronavirus infection, unspecified;Pneumonia due to SARS-associated coronavirus Presentation: 10/14 09:29 Chief complaint: EMS states: CP and SOB x 3 days. Coronavirus screen: At this time, the jl7 client does not indicate any symptoms associated with coronavirus-19. Ebola Screen: No symptoms or risks identified at this time. Initial Sepsis Screen: Does the patient meet any 2 criteria? No. Patient's initial sepsis screen is negative. Does the patient have a suspected source of infection? No. Patient's initial sepsis screen is negative. Risk Assessment: Do you want to hurt yourself or someone else? Patient reports no desire to harm self or others. Onset of symptoms was October 12, 2021. Care prior to arrival: Glucose check: 144. 09:29 Method Of Arrival: EMS: [facility] 09:29 Acuity: ALMAS 2 jl7 Triage Assessment: 09:32 General: Appears in no apparent distress. uncomfortable, Behavior is calm, cooperative, jl7 appropriate for age. Pain: Complains of pain in chest Pain currently is 0 out of 10 on a pain scale. at worst was 10 out of 10 on a pain scale. Neuro: Level of Consciousness is awake, alert, obeys commands, Oriented to person, place, time, situation. Cardiovascular: Patient's skin is warm and dry. Rhythm is atrial fibrillation with rapid ventricular response. Respiratory: Airway is patent Respiratory effort is even, unlabored, Respiratory pattern is symmetrical, tachypnea. Derm: Skin is pink, warm \\T\\ dry. Historical: - Allergies: 09:32 Zofran; jl7 - Home Meds: 09:32 levothyroxine oral once daily [Active]; Prilosec Oral once daily [Active]; Zantac Oral jl7 once daily [Active]; - PMHx: 09:32 GERD; Thyroid problem; jl7 10:00 skin cancer with radiation tx to left arm; aa5 - Immunization history:: Client reports having NOT received the Covid vaccine. - Social history:: Smoking status: Patient denies any tobacco usage or history of. - Family history:: not pertinent. Screenin:45 Abuse screen: Denies threats or abuse. Nutritional screening: No deficits noted. aa5 Tuberculosis screening: No symptoms or risk factors identified. Fall Risk IV access (20 points). Mental Status- Overestimates/Forgets Limitations (15 pts.). Total Anguiano Fall Scale indicates Low Risk Score (25-44 pts). Fall prevention measures have been instituted. Side Rails Up X 2 Placed close to Nursing Station. Assessment: 09:45 General: Appears comfortable, Behavior is calm, cooperative. Pain: Complains of pain in aa5 chest when he takes a deep breath Pain currently is 0 out of 10 on a pain scale. Quality of pain is described as pressure, Pain began 2-3 days ago. Is intermittent. Neuro: Level of Consciousness is awake, alert, obeys commands, Oriented to person, place, time, situation. Cardiovascular: Heart tones S1 S2 present Rhythm is atrial fibrillation with rapid ventricular response. Respiratory: Reports shortness of breath cough that is productive, Airway is patent Respiratory effort is even, unlabored, Respiratory pattern is tachypnea Breath sounds are diminished bilaterally. GI: Abdomen is flat, non-distended, Bowel sounds present X 4 quads. Abd is soft and non tender X 4 quads. Patient currently denies diarrhea, nausea, vomiting. : No signs and/or symptoms were reported regarding the genitourinary system. EENT: No signs and/or symptoms were reported regarding the EENT system. Derm: Skin is pink, warm \\T\\ dry. Musculoskeletal: Range of motion: intact in all extremities. 10:00 Reassessment: Patient is alert, oriented x 3, equal unlabored respirations, skin aa5 warm/dry/pink. Cardiovascular: Rhythm is atrial fibrillation. 11:10 Reassessment: Patient is alert, oriented x 3, equal unlabored respirations, skin aa5 warm/dry/pink. Cardiovascular: Rhythm is atrial fibrillation. 12:00 Reassessment: Patient is alert, oriented x 3, equal unlabored respirations, skin aa5 warm/dry/pink. 13:00 Reassessment: Patient is alert, oriented x 3, equal unlabored respirations, skin aa5 warm/dry/pink. Pt sitting up in bed watching TV.. 14:00 Reassessment: Pt resting in bed with eyes closed, respirations even and unlabored. . aa5 15:00 Reassessment: Patient is alert, oriented x 3, equal unlabored respirations, skin aa5 warm/dry/pink. Pt sitting up in bed watching TV. 16:00 Reassessment: Patient is alert, oriented x 3, equal unlabored respirations, skin aa5 warm/dry/pink. 17:00 Reassessment: Patient is alert, oriented x 3, equal unlabored respirations, skin aa5 warm/dry/pink. Pt given dinner tray. Vital Signs: 09:29 BP 146 / 107; Pulse 135; Resp 26; Temp 98.2; Pulse Ox 94% ; Weight 61.23 kg; Pain 0/10; jl7 09:45 BP 140 / 92; Pulse 124; Resp 18 S; Pulse Ox 97% on R/A; aa5 09:51 BP 129 / 71; Pulse 102; Resp 18 S; Pulse Ox 97% on R/A; aa5 09:55 BP 134 / 87; Pulse 85; Resp 16 S; Pulse Ox 96% on R/A; aa5 11:15 BP 148 / 79; Pulse 62; Resp 20 S; Pulse Ox 95% on R/A; aa5 11:23 Height 5 ft. 9 in. (175.26 cm); em1 12:00 BP 136 / 79; Pulse 74; Resp 22 S; Temp 98.0(TE); Pulse Ox 98% on R/A; aa5 13:00 BP 136 / 79; Pulse 74; Resp 22 S; Pulse Ox 95% on R/A; aa5 14:00 BP 157 / 73; Pulse 77; Resp 20 S; Pulse Ox 96% on R/A; aa5 15:00 BP 144 / 88; Pulse 75; Resp 22 S; Temp 98.2(TE); Pulse Ox 95% on R/A; aa5 11:23 Body Mass Index 19.93 (61.23 kg, 175.26 cm) em1 ED Course: 09:26 Patient arrived in ED. [facility] 09:26 Albert Triana MD is Attending Physician. jalyn 09:32 Triage completed. jl7 09:32 Arm band placed on right wrist. jl7 09:36 EKG done, by ED staff, reviewed by Albert Triana MD. mb7 09:41 Carol Gutierrez, HIMANSHU is Primary Nurse. aa5 09:45 Patient has correct armband on for positive identification. Placed in gown. Bed in low aa5 position. Call light in reach. Side rails up X2. night monitor on. Pulse ox on. NIBP on. 09:45 SARS-COV-2 RT PCR (Document "Date of Onset" if Symptomatic) Sent. zm 09:45 Troponin HS Sent. zm 09:45 PT-INR Sent. zm 09:45 NT PRO-BNP Sent. zm 09:45 Magnesium Sent. zm 09:45 LFT's Sent. zm 09:45 CBC with Diff Sent. zm 09:45 Basic Metabolic Panel Sent. zm 09:45 Inserted saline lock: 20 gauge in left antecubital area, using aseptic technique. IV aa5 inserted by communications engineering technician. 09:46 TSH Sent. zm 10:12 XRAY Chest (1 view) In Process Unspecified. EDMS 10:45 Jozef Weeks MD is Hospitalizing Provider. [facility] 10:47 CT Chest For PE Angio In Process Unspecified. EDMS 18:00 No provider procedures requiring assistance completed. Patient admitted, IV remains in aa5 place. Administered Medications: 09:45 Drug: Lopressor (metoprolol) 5 mg Route: IVP; Site: left antecubital; aa5 09:51 Follow up: Response: No adverse reaction aa5 09:45 Drug: NS 0.9% 500 ml Route: IV; Rate: bolus; Site: left antecubital; aa5 10:40 Follow up: IV Status: Completed infusion; IV Intake: 500ml aa5 09:45 Drug: Pepcid (famotidine) 20 mg Route: IVP; Site: left antecubital; aa5 09:50 Follow up: Response: No adverse reaction aa5 09:51 Drug: Lopressor (metoprolol TARTRATE) 50 mg Route: PO; aa5 11:10 Follow up: Response: No adverse reaction aa5 09:55 Drug: Digoxin 0.5 mg Route: IVP; Site: left antecubital; aa5 10:00 Follow up: Response: No adverse reaction aa5 10:00 Drug: Lovenox (enoxaparin) 1 mg/kg Route: Sub-Q; Site: right lower abdomen; aa5 11:10 Follow up: Response: No adverse reaction aa5 11:10 Drug: Zosyn (piperacillin-tazobactam) 3.375 grams Route: IVPB; Infused Over: 60 mins; aa5 Site: left antecubital; 12:10 Follow up: Response: No adverse reaction; IV Status: Completed infusion aa5 11:10 Drug: NS 0.9% 500 ml Route: IV; Rate: bolus; Site: left antecubital; aa5 12:10 Follow up: IV Status: Completed infusion; IV Intake: 500ml aa5 12:25 Drug: Zithromax (azithromycin) 500 mg Route: IVPB; Infused Over: 1 hrs; Site: left aa5 antecubital; 13:30 Follow up: Response: No adverse reaction; IV Status: Completed infusion aa5 13:30 Drug: NS 0.9% 1000 ml Route: IV; Rate: 125 ml/hr; Site: left antecubital; aa5 18:00 Follow up: IV Status: Infusion continued upon admission aa5 Intake: 10:40 IV: 500ml; Total: 500ml. aa5 12:10 IV: 500ml; Total: 1000ml. aa5 Outcome: 10:47 Decision to Hospitalize by Provider. [facility] 18:00 Admitted to ER Hold. Please see [facility] for further documentation. aa5 18:00 Condition: stable 18:00 Instructed on the need for admit, Demonstrated understanding of instructions. 10/15 13:26 Admitted to Med/surg accompanied by nurse, room 417, Report called to HIMANSHU Bliss jg9 13:27 Patient left the ED. jg9 Signatures: Dispatcher [employer] EDMS Albert Triana MD MD cha Martinez, Eric em1 Carol Gutierrez RN RN aa5 Laurie Altamirano RN RN [id number] Cecily Bashir mbLaura Jean RN RN jg9 Mehreen Ash Corrections: (The following items were deleted from the chart) 10/14 17:59 13:00 Reassessment: Patient is alert, oriented x 3, equal unlabored respirations, skin aa5 warm/dry/pink. aa5
--- NOTE | 2021-10-14 10:48 | EDPHYS ---
Physician Documentation [facility] Name: Abhay Morocho Age: 86 yrs Sex: Male : 1935 Arrival Date: 10/14/2021 Time: 09:26 Bed 15 Private MD: JEANNIE Physician Albert Triana HPI: 10/14 09:52 This 86 yrs old Male presents to ER via EMS with complaints of cp, and rvr. jalyn 09:52 The patient has shortness of breath with light activity. Onset: The symptoms/episode jalyn began/occurred 2 day(s) ago. Duration: The symptoms are continuous, and are steadily getting worse. The patient's shortness of breath is aggravated by exertion, light activity, is alleviated by rest, sitting up, application of supplemental oxygen. The patient or guardian reports chest pain that is located primarily in the substernal area. Onset: 2 day(s) ago. The pain does not radiate. Associated signs and symptoms: Pertinent positives: non-productive cough. Severity of symptoms: At their worst the symptoms were mild moderate in the emergency department the symptoms are unchanged. Associated signs and symptoms: Pertinent positives: cough, shortness of breath. The chest pain is described as sharp. Duration: The patient or guardian reports multiple episodes, that wax and wane. Modifying factors: The symptoms are alleviated by remaining still, the symptoms are aggravated by deep breath, movement. Severity of pain: At its worst the pain was mild in the emergency department the pain has improved mildly. Historical: - Allergies: 09:32 Zofran; jl7 - Home Meds: 09:32 levothyroxine oral once daily [Active]; Prilosec Oral once daily [Active]; Zantac Oral jl7 once daily [Active]; - PMHx: 09:32 GERD; Thyroid problem; jl7 10:00 skin cancer with radiation tx to left arm; aa5 - Immunization history:: Client reports having NOT received the Covid vaccine. - Social history:: Smoking status: Patient denies any tobacco usage or history of. - Family history:: not pertinent. ROS: 09:52 Constitutional: Negative for fever, chills, and weight loss, Eyes: Negative for injury, jalyn pain, redness, and discharge, ENT: Negative for injury, pain, and discharge, Neck: Negative for injury, pain, and swelling, Respiratory: Negative for shortness of breath, cough, wheezing, and pleuritic chest pain, Abdomen/GI: Negative for abdominal pain, nausea, vomiting, diarrhea, and constipation, Back: Negative for injury and pain, : Negative for injury, bleeding, discharge, and swelling, MS/Extremity: Negative for injury and deformity, Skin: Negative for injury, rash, and discoloration, Neuro: Negative for headache, weakness, numbness, tingling, and seizure, Psych: Negative for depression, anxiety, suicide ideation, homicidal ideation, and hallucinations, Allergy/Immunology: Negative for hives, rash, and allergies, Endocrine: Negative for neck swelling, polydipsia, polyuria, polyphagia, and marked weight changes, Hematologic/Lymphatic: Negative for swollen nodes, abnormal bleeding, and unusual bruising. 09:52 Cardiovascular: Positive for chest pain, of the chest. Exam: 09:52 Constitutional: This is a well developed, well nourished patient who is awake, alert, jalyn and in no acute distress. Head/Face: Normocephalic, atraumatic. Eyes: Pupils equal round and reactive to light, extra-ocular motions intact. Lids and lashes normal. Conjunctiva and sclera are non-icteric and not injected. Cornea within normal limits. Periorbital areas with no swelling, redness, or edema. ENT: Nares patent. No nasal discharge, no septal abnormalities noted. Tympanic membranes are normal and external auditory canals are clear. Oropharynx with no redness, swelling, or masses, exudates, or evidence of obstruction, uvula midline. Mucous membranes moist. Neck: Trachea midline, no thyromegaly or masses palpated, and no cervical lymphadenopathy. Supple, full range of motion without nuchal rigidity, or vertebral point tenderness. No Meningismus. Chest/axilla: Normal chest wall appearance and motion. Nontender with no deformity. No lesions are appreciated. Abdomen/GI: Soft, non-tender, with normal bowel sounds. No distension or tympany. No guarding or rebound. No evidence of tenderness throughout. Back: No spinal tenderness. No costovertebral tenderness. Full range of motion. Male : Normal genitalia with no discharge or lesions. Skin: Warm, dry with normal turgor. Normal color with no rashes, no lesions, and no evidence of cellulitis. MS/ Extremity: Pulses equal, no cyanosis. Neurovascular intact. Full, normal range of motion. Neuro: Awake and alert, GCS 15, oriented to person, place, time, and situation. Cranial nerves II-XII grossly intact. Motor strength 5/5 in all extremities. Sensory grossly intact. Cerebellar exam normal. Normal gait. Psych: Awake, alert, with orientation to person, place and time. Behavior, mood, and affect are within normal limits. 09:52 Cardiovascular: Rate: tachycardic, actual rate is 135 bpm, Rhythm: irregularly irregular, Pulses: Pulses are 4+ in bilateral radial, brachial, femoral, popliteal, posterior tibial and and dorsalis pedis arteries.. Heart sounds: normal, Edema: is not appreciated, JVD: is not appreciated. 10:04 ECG was reviewed by the Attending Physician. [facility] Vital Signs: 09:29 BP 146 / 107; Pulse 135; Resp 26; Temp 98.2; Pulse Ox 94% ; Weight 61.23 kg; Pain 0/10; jl7 09:45 BP 140 / 92; Pulse 124; Resp 18 S; Pulse Ox 97% on R/A; aa5 09:51 BP 129 / 71; Pulse 102; Resp 18 S; Pulse Ox 97% on R/A; aa5 09:55 BP 134 / 87; Pulse 85; Resp 16 S; Pulse Ox 96% on R/A; aa5 11:15 BP 148 / 79; Pulse 62; Resp 20 S; Pulse Ox 95% on R/A; aa5 11:23 Height 5 ft. 9 in. (175.26 cm); em1 12:00 BP 136 / 79; Pulse 74; Resp 22 S; Temp 98.0(TE); Pulse Ox 98% on R/A; aa5 13:00 BP 136 / 79; Pulse 74; Resp 22 S; Pulse Ox 95% on R/A; aa5 14:00 BP 157 / 73; Pulse 77; Resp 20 S; Pulse Ox 96% on R/A; aa5 15:00 BP 144 / 88; Pulse 75; Resp 22 S; Temp 98.2(TE); Pulse Ox 95% on R/A; aa5 11:23 Body Mass Index 19.93 (61.23 kg, 175.26 cm) em1 MDM: 09:26 Patient medically screened. [facility] 10:05 Differential diagnosis: asthma, Bronchitis CHF exacerbation, abnormal EKG, acute jalyn myocardial infarction, coronary artery disease Cholelithiasis esophagitis, gastritis, hiatal hernia, pancreatitis, peptic ulcer disease, pneumonia, pulmonary embolus, stable angina, unstable angina, Myocardial Infarction pneumonia, pulmonary edema, Pulmonary Embolism reactive airway disease, Sepsis Unstable Angina. Antibiotic administration: zosyn. HEART Score: History: Slightly Suspicious (0), ECG: Non specific repolarization disturbance / LBTB / PM (1), Age: > or = 65 years (2), Risk Factors: > or = 3 Risk factors for atherosclerotic disease (2), [Hypercholesterolemia] [Hypertension] [+ Family HX] Troponin: < or = 1 x Normal Limit (0). The patient was given aspirin in the Emergency Department. The patient's Wells Deep Vein Thrombosis Score was calculated as follows: Total Score: 0. This patient was found to be at low risk for a deep vein thrombosis by using the Well's assessment criteria Heart Rate >100 BPM (1.5 Pts) Total Score: 0-2 Pts- Low Risk. The patient's pulmonary embolism risk score was calculated as follows: the patients heart rate is greater than 100 beats per minute (1.5 Pts) Total Score: the patients heart rate is greater than 100 beats per minute (1.5 Pts) Total Score: 0-2 points. This patient was found to be at low risk for a pulmonary embolism by using the Well's assessment criteria. JACINTA Risk Score: 1 - patient's age is greater or equal to 65 years, 1 - Three or more CAD risk factors, 1 - ST deviation >0.5mm, TOTAL SCORE = 3. Immunization status: Pneumococcal vaccine: Influenza vaccine: Data reviewed: vital signs, nurses notes, EMS record, lab test result(s), EKG, radiologic studies, CT scan, plain films. Data interpreted: nurse monitoring: rate is 120 beats/min, rhythm is atrial fibrillation, Pulse oximetry: on room air is 96 %. Test interpretation: by ED physician or midlevel provider: ECG, plain radiologic studies. 10/14 09:31 Order name: Basic Metabolic Panel; Complete Time: 10:43 [facility] 10/14 09:31 Order name: CBC with Diff; Complete Time: 23:52 [facility] 10/14 09:31 Order name: LFT's; Complete Time: 10:43 [facility] 10/14 09:31 Order name: Magnesium; Complete Time: 10:43 [facility] 10/14 09:31 Order name: NT PRO-BNP; Complete Time: 10:43 [facility] 10/14 09:31 Order name: PT-INR; Complete Time: 23:52 [facility] 10/14 09:31 Order name: Troponin HS; Complete Time: 10:43 [facility] 10/14 09:31 Order name: TSH; Complete Time: 10:43 [facility] 10/14 09:31 Order name: SARS-COV-2 RT PCR (Document "Date of Onset" if Symptomatic); Complete Time: [facility] 23:52 10/14 10:03 Order name: Manual Differential; Complete Time: 23:52 [facility] 10/14 10:03 Order name: Blood Culture Adult (2) 10/14 10:03 Order name: Lactate; Complete Time: 11:13 [facility] 10/14 10:03 Order name: Procalcitonin; Complete Time: 23:52 [facility] 10/14 10:23 Order name: T4 Free; Complete Time: 10:43 [facility] 10/14 09:31 Order name: XRAY Chest (1 view); Complete Time: 11:13 [facility] 10/14 10:03 Order name: CT Chest For PE Angio; Complete Time: 11:13 [facility] 10/14 11:03 Order name: Basic Metabolic Panel EDAZ 10/14 11:03 Order name: Basic Metabolic Panel EDAZ 10/14 11:03 Order name: CBC with Automated Diff EDMS 10/14 11:03 Order name: CBC with Automated Diff EDMS 10/14 11:03 Order name: Magnesium EDMS 10/14 11:03 Order name: Magnesium EDMS 10/14 11:03 Order name: Phosphorus EDMS 10/14 11:03 Order name: Phosphorus EDMS 10/14 15:37 Order name: Urine Dipstick-Ancillary; Complete Time: 23:52 E[facility] 10/14 17:22 Order name: Lactate Sepsis 2 HR Follow-up; Complete Time: 23:52 EDMS 10/15 02:02 Order name: Lactate EDMS 10/15 04:22 Order name: Lactate Sepsis 2 HR Follow-up EDMS 10/15 08:45 Order name: Glucose, Ancillary Testing EDMS 10/14 09:31 Order name: EKG; Complete Time: 09:32 [facility] 10/14 09:31 Order name: Cardiac monitoring; Complete Time: 09:42 10/14 09:31 Order name: EKG - Nurse/Tech; Complete Time: 09:42 10/14 09:31 Order name: IV Saline Lock; Complete Time: 09:42 10/14 09:31 Order name: Labs collected and sent; Complete Time: 09:42 10/14 09:31 Order name: O2 Per Protocol; Complete Time: 09:42 10/14 09:31 Order name: O2 Sat Monitoring; Complete Time: 09:42 10/14 09:31 Order name: Urine Dipstick-Ancillary (obtain specimen); Complete Time: 18:00 [facility] 10/14 10:32 Order name: IV Saline Lock - Large Bore; Complete Time: 10:51 10/14 11:03 Order name: Heart Healthy EDMS EC:04 Rate is 120 beats/min. Rhythm is irregularly irregular. QRS [place] is Normal. [place] interval jalyn is normal. QRS interval is normal. QT interval is normal. No Q waves. T waves are Normal. No ST changes noted. Clinical impression: Atrial Fibrillation and No evidence of ischemia. Interpreted by me. Reviewed by me. Administered Medications: 09:45 Drug: Lopressor (metoprolol) 5 mg Route: IVP; Site: left antecubital; aa5 09:51 Follow up: Response: No adverse reaction aa5 09:45 Drug: NS 0.9% 500 ml Route: IV; Rate: bolus; Site: left antecubital; aa5 10:40 Follow up: IV Status: Completed infusion; IV Intake: 500ml aa5 09:45 Drug: Pepcid (famotidine) 20 mg Route: IVP; Site: left antecubital; aa5 09:50 Follow up: Response: No adverse reaction aa5 09:51 Drug: Lopressor (metoprolol TARTRATE) 50 mg Route: PO; aa5 11:10 Follow up: Response: No adverse reaction aa5 09:55 Drug: Digoxin 0.5 mg Route: IVP; Site: left antecubital; aa5 10:00 Follow up: Response: No adverse reaction aa5 10:00 Drug: Lovenox (enoxaparin) 1 mg/kg Route: Sub-Q; Site: right lower abdomen; aa5 11:10 Follow up: Response: No adverse reaction aa5 11:10 Drug: Zosyn (piperacillin-tazobactam) 3.375 grams Route: IVPB; Infused Over: 60 mins; aa5 Site: left antecubital; 12:10 Follow up: Response: No adverse reaction; IV Status: Completed infusion aa5 11:10 Drug: NS 0.9% 500 ml Route: IV; Rate: bolus; Site: left antecubital; aa5 12:10 Follow up: IV Status: Completed infusion; IV Intake: 500ml aa5 12:25 Drug: Zithromax (azithromycin) 500 mg Route: IVPB; Infused Over: 1 hrs; Site: left aa5 antecubital; 13:30 Follow up: Response: No adverse reaction; IV Status: Completed infusion aa5 13:30 Drug: NS 0.9% 1000 ml Route: IV; Rate: 125 ml/hr; Site: left antecubital; aa5 18:00 Follow up: IV Status: Infusion continued upon admission aa5 Disposition Summary: 10/14/21 10:47 Hospitalization Ordered Hospitalization Status: Inpatient Admission jalyn Provider: Jozef Weeks cha Condition: Fair jalyn Problem: new jalyn Symptoms: have improved jalyn Bed/Room Type: Standard jalyn Location: Telemetry/MedSurg (Inpatient)(10/15/21 12:50) bd Room Assignment: [facility](10/15/21 12:51) Diagnosis - Pneumonia, unspecified organism - bilateral jalyn - Chest pain on breathing jalyn - Persistent atrial fibrillation - with RVR, NEW ONSET jalyn - Elevated white blood cell count jalyn - Pleural effusion in other conditions classified elsewhere jalyn - Bandemia jalyn - Coronavirus infection, unspecified jalyn - Pneumonia due to SARS-associated coronavirus jalyn Forms: - Medication Reconciliation Form jalyn - SBAR form jalyn Signatures: Dispatcher [employer] EDMS Stephanie Moser Corey, MD MD cha Calderon, Audri RN RN aa5 Ariel Sotelo FNP-C [employer]1 Meaghan Nielson RN RN cg Leal, Jahala, RN RN jl7 Corrections: (The following items were deleted from the chart) 20:30 10:47 Telemetry/MedSurg (Inpatient) jalyn cg 20:30 10:47 jalyn cg 10/15 12:50 10/14 20:30 BR ER HOLD cg bd 10/15 12:50 10/14 20:30 ERHOLD- cg bd 10/15 12:51 12:50 404 bd bd
--- NOTE | 2021-10-14 10:56 | P.HP ---
Certification for Inpatient With expected LOS: >2 Midnights Practitioner: I am a practitioner with admitting privileges, knowledge of patient current condition, hospital course, and medical plan of care. Services: Services provided to patient in accordance with Admission requirements found in Title 42 Section 412.3 of the Code of Federal Regulations Patient History Date of Service: 10/14/21 Reason for admission: Chest pain, Pneumonia. History of Present Illness: -year-old male patient with medical history significant for hypothyroidism, hyperlipidemia, who was evaluated in emergency room for episode of persistent chest discomfort and shortness of breath. He also had cough. Shortness of breath episode started about 2 days ago and he had cough productive of sputum. He denied overt fever or chills, rigor, nausea, vomiting episode. Because of persistent chest discomfort and breathing he had a CTA pulmonary to rule out pulmonary embolism done which was negative. His chest x-ray was overtly c oncerning for left lung field opacification so he was admitted for inpatient antibiotic therapy and care. Allergies No Known Drug Allergies Adverse Reaction (Mild, Verified 03/20/20 19:26) Unknown ondansetron [From Zofran] Adverse Reaction (Verified 03/20/20 19:26) Rash Home Medications: Levothyroxine Sodium [Synthroid] 0.075 mcg PO DAILY 04/19/18 Omeprazole [Prilosec] 40 mg PO BID 04/19/18 Calcium Carbonate [Tums Ultra Strength] 0.5 tab PO BEDTIME 03/20/20 Travoprost [Travatan Z*] 1 gtt OP BEDTIME 03/20/20 mg Trisilicate/Alh/Nahco3/Aa [Gaviscon 80-14.2 mg Tab Chew] 1 tab PO BEDTIME 03/20/20 Promethazine Tab [Phenergan] 12.5 mg PO Q6HP PRN #20 tab 03/22/20 - Past Medical/Surgical History Diabetic: No -: GERD -: hypothyroidism -: glaucoma -: stomach bypass due to GERD -: cataract sx -: back surgery ruptured disc -: left shoulder surgery bone spurs -: vasectomy -: 4 stomach surgeries - Family History Father -: GI disease Mother -: Lung disease, Cancer Notes: breast ca with mets lungs - Social History Alcohol use: No CD- Drugs: No Caffeine use: Yes Review of Systems General: Malaise Eyes: Unremarkable ENT: Unremarkable Respiratory: Cough, Shortness of Breath, Pleuritic Pain Cardiovascular: Unremarkable Gastrointestinal: Unremarkable Genitourinary: Unremarkable Musculoskeletal: Unremarkable Integumentary: Unremarkable Neurological: Unremarkable Physical Examination - Physical Exam General: Alert, Oriented x3 HEENT: Atraumatic, Normocephalic Neck: Supple Respiratory: Diminished Cardiovascular: Regular rate/rhythm, Normal S1 S2 Gastrointestinal: Soft and benign Musculoskeletal: No swelling Neurological: Normal speech, Normal strength at 5/5 x4 extr - Studies Laboratory Data (last 24 hrs) 10/14/21 09:40: WBC 27.2 H*, Hgb 14.2, Hct 43.7, Plt Count 301 10/14/21 09:40: Sodium 142, Potassium 3.5, BUN 14, Creatinine 0.94, Glucose 125 H, Magnesium 2.4, Total Bilirubin 0.9, AST 16, ALT 28, Alkaline Phosphatase 130 H Assessment and Plan - Plan 1. Pneumonia: Deemed community-acquired variety and present on admission. Chest x-ray showed left lower lung field opacification. Empiric antibiotic of Rocephin and azithromycin has been started. Continue breathing treatment. Monitor symptomatology closely 2. Chest pain: Deemed pleuritic and perhaps due to pneumonia episode. CT was negative for pulmonary embolus. We will continue present care and monitoring. 3. Hypothyroidism: We will continue levothyroxine therapy. 4.Leukocytosis: Elevated white cell of 10 7000 noted. The secondary to pneumonia episode. This is perhaps a leukemoid reaction. We will follow closely. Prophylaxis: Lovenox for DVT. Code status: Discharge Plan: Home - Advance Directives Does patient have a Living Will: No Does patient have a Durable POA for Healthcare: Yes
[2021-10-14] MEDS ORDERED: ALBUTEROL 2.5 MG/3 ML NEB SOL NEB PRN (10:57)
[2021-10-14] MEDS ORDERED: ONDANSETRON 4 MG/2 ML VIAL IV PRN (10:57)
[2021-10-14] MEDS ORDERED: ACETAMINOPHEN 500 MG TAB PO PRN (10:57)
[2021-10-14 10:58] LABS: Anisocytosis SLIGHT; Blood Morphology Comment NOTED (NOT SEEN); Macrocytosis SLIGHT; Platelet Estimate ADEQ
--- NOTE | 2021-10-14 11:05 | RAD REPORT ---
EXAM DESCRIPTION: CT - Chest For Pe Angio - 10/14/2021 10:46 am CLINICAL HISTORY: Chest pain COMPARISON: 2014 TECHNIQUE: Dynamically enhanced axial 3 mm thick images of the chest were obtained during administra tion of <100> mL Isovue 370 IV contrast. Coronal and oblique reconstruction images were generated and reviewed. Exam utilizes a protocol for optimal evaluation of pulmonary arterial tree. Maximum intensity projections 3D imaging was utilized All CT scans are performed using dose optimization technique as appropriate and may include automated exposure control or mA/KV adjustment according to patient size. FINDINGS: A pulmonary embolus is not seen. 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 Moderate loculated left and small right pleural effusions. . Minimal pericardial effusion. Bibasilar atelectasis. 2.4 centimeter right upper lobe cyst. Right upper lobe bronchiectasis and bron chial wall thickening. Mild additional right upper lobe opacities. Mild additional right lower lobe opacities IMPRESSION: Negative for a pulmonary embolism. 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 Mild additio nal right upper lobe opacities are probably mostly chronic. Mild right lower lobe opacities probably pneumonia
--- NOTE | 2021-10-14 11:06 | RAD REPORT ---
EXAM DESCRIPTION: [facility] Single View10/14/2021 10:11 am CLINICAL HISTORY: Chest pain COMPARISON: August 2021 FINDINGS: Mild right lower lobe opacities probably pneumonia Right upper lobe cyst and additional right upper lobe opacities without significant change. Moderate loculated left and small right pleural effusions. Cardiomegaly
[2021-10-14] MEDS ORDERED: NA CHLORIDE 0.9% 250 ML ONE (11:07)
[2021-10-14] MEDS ORDERED: PIPERACIL/TAZO 3.375 GM VIAL IV ONE ×2 (11:07→11:12)
[2021-10-14] MEDS ORDERED: AZITHROMYCIN 500 MG INJ IVPB ONE (11:07)
[2021-10-14] MEDS ORDERED: NA CHLORIDE 0.9% 0 ML IV ONE (11:07)
[2021-10-14] MEDS ORDERED: NA CHLORIDE 0.9% 100 ML IV ONE ×2 (11:12→18:22)
[2021-10-14] MEDS ORDERED: ACETAMINOPHEN 325 MG TABLET FT PRN (11:21)
[2021-10-14 11:41] LABS: Protime INR 1.3
[2021-10-14] MEDS: AZITHROMYCIN IV 500 MG in NA CHLORIDE 0.9% 250 ML IVPB SCH (12:00)
[2021-10-14] MEDS: IPRATROPIUM BROM 0.5MG/2.5ML NEB SCH ×2 (13:55→20:10)
[2021-10-14] MEDS ORDERED: IPRATROPIUM BROM 0.5MG/2.5ML ONE ×2 (13:58→19:37)
[2021-10-14 15:37] LABS: Urine Blood Negative (Negative); Urine Glucose Negative (Negative); Urine Protein 1+ (Negative); Urine pH 6.5 (5.0-7.0)
[2021-10-14] MEDS: CEFTRIAXONE 1,000 MG in NA CHLORIDE 0.9% 50 ML IVPB SCH (17:30)
[2021-10-14] MEDS ORDERED: CEFTRIAXONE 1000 MG/VIAL ONE (18:22)
[2021-10-14] MEDS ORDERED: METOPROLOL TARTRATE 5 MG/5 ML INJ IV STA (23:54)
[2021-10-15] MEDS ORDERED: METOPROLOL TARTRATE 5 MG/5 ML INJ IV ONE (00:03)
[2021-10-15 01:39] LABS: Absolute Lymphocytes (CBC) 0.6 K/uL (0.7-4.9); Lymphocytes % 1.9 % (15.3-44.8); MPV 8.4 fL (7.6-11.3); RBC Red Blood Cell Count 4.08 M/uL (4.33-5.43)
[2021-10-15 01:42] LABS: Magnesium 2.1 mg/dL (1.8-2.4); Phosphorus 2.3 mg/dL (2.5-4.9); Potassium 3.9 mmol/L (3.5-5.1)
[2021-10-15] MEDS: IPRATROPIUM BROM 0.5MG/2.5ML NEB SCH ×4 (02:05→19:55)
[2021-10-15] MEDS ORDERED: IPRATROPIUM BROM 0.5MG/2.5ML ONE ×2 (02:09→08:30)
[2021-10-15] MEDS ORDERED: ACETAMINOPHEN 325 MG TABLET ONE ×2 (06:28→10:46)
[2021-10-15] MEDS: ACETAMINOPHEN 325 MG TABLET PO PRN ×4 (06:29→20:54)
[2021-10-15] MEDS ORDERED: PNEUMOCOCCAL VACCINE 0.5 ML IMVAC ONE ×2 (08:00→09:17)
[2021-10-15] MEDS: AZITHROMYCIN IV 500 MG in NA CHLORIDE 0.9% 250 ML IVPB SCH (09:00)
[2021-10-15] MEDS: ENOXAPARIN 40 MG/0.4 ML SQ SCH (09:00)
[2021-10-15] MEDS: CEFTRIAXONE 1,000 MG in NA CHLORIDE 0.9% 50 ML IVPB SCH (09:00)
[2021-10-15] MEDS ORDERED: CEFTRIAXONE 1000 MG/VIAL ONE (09:16)
[2021-10-15] MEDS ORDERED: AZITHROMYCIN 500 MG INJ IVPB ONE (09:16)
[2021-10-15] MEDS ORDERED: NA CHLORIDE 0.9% 250 ML ONE (09:17)
[2021-10-15] MEDS ORDERED: ENOXAPARIN 40 MG/0.4 ML SQ ONE (09:17)
[2021-10-15] MEDS ORDERED: NA CHLORIDE 0.9% 50 ML ONE (09:18)
--- NOTE | 2021-10-15 10:00 | P.PN ---
Subjective Date of Service: 10/15/21 Subjective: No new changes, No C/O voiced, Improving Review of Systems 10-point ROS is otherwise unremarkable Physical Examination - Vital Signs Temperature: 97.3 F Blood Pressure: 139/99 Pulse: 123 Respirations: 27 Pulse Ox (%): 94 - Physical Exam General: Alert, In no apparent distress, Oriented x3 HEENT: Atraumatic, PERRLA, EOMI Neck: Supple, JVD not distended Respiratory: Diminished, Expiratory wheezes, Rhonchi/gurgles Cardiovascular: Other (tachycardia no murmurs) Gastrointestinal: Normal bowel sounds, Soft and benign, Non-distended, No tenderness Musculoskeletal: No clubbing, No swelling, No tenderness Neurological: Sensation intact, Cranial nerves 3-12 intact - Studies Laboratory Data (last 24 hrs) 10/14/21 09:40: PT 15.4 H, INR 1.30 10/14/21 09:40: WBC 27.2 H*, Hgb 14.2, Hct 43.7, Plt Count 301 10/14/21 09:40: Sodium 142, Potassium 3.5, BUN 14, Creatinine 0.94, Glucose 125 H, Magnesium 2.4, Total Bilirubin 0.9, AST 16, ALT 28, Alkaline Phosphatase 130 H Medications List Reviewed: Yes Assessment & Plan - Problems (Diagnosis) (1) Pneumonia Onset Date: 04/21/18 Current Visit: No Status: Acute Qualifiers: Pneumonia type: due to COVID-19 virus Qualified Code(s): U07.1 - COVID-19; J12.82 - Pneumonia due to coronavirus disease 2018 (2) Atrial fibrillation Current Visit: No Status: Acute (3) History of coronary artery disease Current Visit: No Status: Acute (4) History of gastric surgery Current Visit: No Status: Acute (5) Hypothyroid Current Visit: No Status: Acute (6) Loculated pleural effusion Current Visit: Yes Status: Acute - Plan 1. IV steroids 2. O2 per protocol 3. Pulmonary consultation 4. Monitor labs 5. Patient is unvaccinated 6. Continue with antibiotic therapy 7. Echocardiogram 8. Patient is a full code 9. Neb treatments 10. Gentle diuresing Discharge Plan: Home Plan to discharge in: Greater than 2 days - Advance Directives Does patient have a Living Will: No Does patient have a Durable POA for Healthcare: Yes - Code Status/Comfort Care Code Status Assessed: Yes Code Status: Full Code Critical Care: No Time Spent Managing PTS Care (In Minutes): 35
[2021-10-15] MEDS ORDERED: D5 0.45 NS 1,000 ML IV ONE (13:22)
[2021-10-15] MEDS: MORPHINE 2 MG/ML SYR IV PRN (19:28)
[2021-10-16] MEDS: IPRATROPIUM BROM 0.5MG/2.5ML NEB SCH ×4 (01:20→21:10)
[2021-10-16] MEDS: ACETAMINOPHEN 325 MG TABLET PO PRN ×2 (02:01→23:49)
[2021-10-16] MEDS ORDERED: METHYLPREDNISOLONE 125 MG INJ IV ONE (02:25)
[2021-10-16] MEDS ORDERED: METOPROLOL TARTRATE 5 MG/5 ML INJ IV STA ×2 (04:51→16:18)
[2021-10-16 06:10] LABS: Absolute Lymphocytes (CBC) 0.4 K/uL (0.7-4.9); Hematocrit 42.9 % (39.6-49.0); Lymphocytes % 1.1 % (15.3-44.8); MPV 8.4 fL (7.6-11.3); RBC Red Blood Cell Count 4.21 M/uL (4.33-5.43)
[2021-10-16 06:19] LABS: BUN Blood Urea Nitrogen 19 mg/dL (7-18); Bicarbonate 24 mmol/L (21-32); Glucose Level 145 mg/dL (74-106); Magnesium 2.2 mg/dL (1.8-2.4); NT PRO-BNP 2261 pg/mL (<450); Phosphorus 2.8 mg/dL (2.5-4.9); Potassium 4.1 mmol/L (3.5-5.1); Sodium Level 142 mmol/L (136-145)
[2021-10-16 07:21] LABS: Blood Morphology Comment NOT SEEN (NOT SEEN); Platelet Estimate ADEQ
[2021-10-16] MEDS: METHYLPREDNISOLONE 125 MG INJ IV SCH ×4 (09:10→23:37)
[2021-10-16] MEDS: ENOXAPARIN 40 MG/0.4 ML SQ SCH (09:11)
[2021-10-16] MEDS: CEFTRIAXONE 1,000 MG in NA CHLORIDE 0.9% 50 ML IVPB SCH (09:11)
[2021-10-16] MEDS: AZITHROMYCIN IV 500 MG in NA CHLORIDE 0.9% 250 ML IVPB SCH (09:14)
[2021-10-16] MEDS ORDERED: FUROSEMIDE 40 MG/4 ML VIAL IV ONE ×2 (09:47→16:18)
--- NOTE | 2021-10-16 10:13 | P.PN ---
Date of Service: 10/16/21 Subjective Subjective: Clinical condition worsening. Overnight patient more hypoxic. Chest x-ray with worsening infiltrates. Continue with IV steroids. Patient is a full code. Going to ICU. Review of Systems 10-point ROS is otherwise unremarkable Physical Examination - Vital Signs reviewed - Physical Exam General: Alert, In no apparent distress, Oriented x3 Respiratory: Diminished, Expiratory wheezes, Rhonchi/gurgles Cardiovascular: Other (tachycardia no murmurs) Gastrointestinal: Normal bowel sounds, Soft and benign, Non-distended, No tenderness Musculoskeletal: No clubbing, No swelling, No tenderness Neurological: Sensation intact, Cranial nerves 3-12 intact Assessment & Plan - Problems (Diagnosis) (1) Pneumonia Onset Date: 04/21/18 Current Visit: No Status: Acute Qualifiers: Pneumonia type: due to COVID-19 virus Qualified Code(s): U07.1 - COVID-19; J12.82 - Pneumonia due to coronavirus disease 2018 (2) Atrial fibrillation Current Visit: No Status: Acute (3) History of coronary artery disease Current Visit: No Status: Acute (4) History of gastric surgery Current Visit: No Status: Acute (5) Hypothyroid Current Visit: No Status: Acute (6) Loculated pleural effusion Current Visit: Yes Status: Acute - Plan Continue with plan of care as mentioned below: 1. IV steroids 2. O2 per protocol 3. Pulmonary consultation 4. Monitor labs 5. Patient is unvaccinated 6. Continue with antibiotic therapy 7. Echocardiogram 8. Patient is a full code 9. Neb treatments 10. Gentle diuresing Discharge Plan: Home Plan to discharge in: Greater than 2 days - Advance Directives Does patient have a Living Will: No Does patient have a Durable POA for Healthcare: Yes - Code Status/Comfort Care Code Status Assessed: Yes Code Status: Full Code Critical Care: No Time Spent Managing PTS Care (In Minutes): 35
[2021-10-16] MEDS ORDERED: VANCOMYCIN 1 GM in NA CHLORIDE 0.9% 250 ML IVPB SCH (12:00)
--- NOTE | 2021-10-16 12:50 | P.CNS ---
Date of Consult: 10/16/21 Reason for Consult: Respiratory failure Chief Complaint: Chest pain, Pneumonia. History of Present Illness: Patient is 86 years of age very hard of hearing hypertension hyperlipidemia hypothyroidism admitted with shortness of breath was evaluated for respiratory failure patient is on her percent FiO2 40 L. To be transferred here to the ICU became short of breath the past 2 days of productive cough as pleural effusion loculated on the left side - Allergies ondansetron [From Zofran] Adverse Reaction (Verified 03/20/20 19:26) Rash Home Medications: Omeprazole [Prilosec] 40 mg PO BID 04/19/18 Calcium Carbonate [Tums] 200 mg PO PRN 10/15/21 Famotidine [Pepcid*] 80 mg PO BEDTIME 10/15/21 Latanoprost [Xelpros] 1 drop EACH EYE BID 10/15/21 Levothyroxine [Synthroid] 100 mcg PO [id number] 10/15/21 - Past Medical/Surgical History Diabetic: No -: GERD -: hypothyroidism -: glaucoma -: skin cancer, receiving radiation treatment -: stomach bypass due to GERD -: cataract sx -: back surgery ruptured disc -: left shoulder surgery bone spurs -: vasectomy -: 4 stomach surgeries - Family History Father Medical History: GI disease Mother Medical History: Lung disease, Cancer Notes: breast ca with mets lungs - Social History Smoking Status: Unknown if ever smoked Alcohol use: No CD- Drugs: No Caffeine use: Yes Place of Residence: Home Review of Systems is unable to be obtained Physical Examination Temp Pulse Resp BP Pulse Ox 97.6 F 129 H 40 H 155/105 H 92 10/16/21 12:00 10/16/21 12:00 10/16/21 12:00 10/16/21 12:00 10/16/21 12:00 General: Alert, Severe distress Respiratory: Clear to auscultation bilaterally, Diminished (Condition on the left side some crackles) Cardiovascular: No edema, Normal S1 S2 Gastrointestinal: Normal bowel sounds, Soft and benign - Problems (1) Respiratory failure Current Visit: Yes Status: Acute Plan: Patient is 86 years of age admitted with respiratory failure the right upper lobe infiltrate and left lung loculated effusion scheduled to be transferred to the ICU we will also consider BiPAP in addition to high flow if needed white count is significantly elevated plan to do an ultrasound of the chest to see if he is got a multiloculated pleural effusion to be the source of his sepsis continue with current broad-spectrum antibiotics for now chest x-ray has been a significant progression on the right side. Blood gases ordered may end up on a ventilator is probably going to need a chest tube on the left side Qualifiers: Chronicity: acute (2) SARS-CoV-2 positive Current Visit: Yes Status: Acute Plan: Possible COVID he is tested he has tested positive for coronavirus may have coronavirus pneumonia continue with steroids for now
[2021-10-16] MEDS: VANCOMYCIN 1 GM in NA CHLORIDE 0.9% 250 ML IVPB SCH (12:55)
--- NOTE | 2021-10-16 13:48 | RAD REPORT ---
EXAM DESCRIPTION: Chest Single View CLINICAL HISTORY: Pneumonia, increased SOB COMPARISON: Report from 10/14/2021 FINDINGS: Single frontal view of the chest. Cardiomediastinal silhouette: Atherosclerotic calcification of thoracic aorta. Cardiomegaly. Lungs: Moderate loculated left pleural effusion. Small right Diffuse right lung interstitial and airs pace opacities. Left lung airspace opacities. No pneumothorax. Bones: Degenerative change of the spine and shoulders. Upper abdomen: Postoperative change in the upper abdomen. IMPRESSION: 1. Moderate loculated left pleural effusion. Small right pleural effusion. Diffuse bilat eral opacities. 2. Cardiomegaly. Electronically signed by: Derrick Pineda 10/16/2021 3:31 AM CDT Due to temporary technical issues with the PACS/Fluency reporting system, reports are being signed by the in house radiologists without review as a courtesy to insure prompt reporting. The interpreting radiologist is fully responsible for the content of the report.
[2021-10-16] MEDS: CEFEPIME 1 GM in NA CHLORIDE 0.9% 100 ML IV SCH ×2 (13:59→20:11)
[2021-10-16] MEDS: Levofloxacin 750mg IV 750 MG/150 ML BAG IV SCH (14:20)
[2021-10-16] MEDS: MORPHINE 2 MG/ML SYR IV PRN ×2 (16:05→22:01)
[2021-10-16 16:24] LABS: Arterial Blood Carboxyhemoglob 0.5 % (0-1.5); Blood Gas Oxyhemoglobin 95.1 % (94-97); Blood O2 Saturation 97.5 % (92-98.5)
--- NOTE | 2021-10-16 17:45 | RAD REPORT ---
EXAM DESCRIPTION: US - Chest - 10/16/2021 5:35 pm CLINICAL HISTORY: Left-sided to check for loculations COMPARISON: Chest Single View dated 10/16/2021 FINDINGS: Sonographic evaluation of the left chest was performed. Patient has a known left-sided ple ural effusion. The left-sided pleural fluid shows several thickening fibrotic strands traversing the fluid at the left lung base. Minimal right base pleural effusion without loculation. IMPRESSION: Multiloculated left pleural effusion.
[2021-10-16] MEDS ORDERED: CALCIUM CARBONATE CHEW 500MG TAB PO SCH (22:00)
[2021-10-16] MEDS: METOPROLOL TARTRATE 5 MG/5 ML INJ IV PRN (22:24)
[2021-10-17] MEDS: IPRATROPIUM BROM 0.5MG/2.5ML NEB SCH ×4 (01:50→20:15)
[2021-10-17] MEDS: LEVOTHYROXINE SOD 0.1 MG TAB PO SCH (05:25)
[2021-10-17] MEDS: METHYLPREDNISOLONE 125 MG INJ IV SCH ×2 (05:25→11:17)
[2021-10-17] MEDS: MORPHINE 2 MG/ML SYR IV PRN ×2 (06:17→16:54)
[2021-10-17 08:34] LABS: Albumin 2.1 g/dL (3.4-5.0); Bilirubin Total 0.5 mg/dL (0.2-1.0); Magnesium 2.3 mg/dL (1.8-2.4); Phosphorus 2.7 mg/dL (2.5-4.9); Potassium 3.7 mmol/L (3.5-5.1); Protein, Total 7.2 g/dL (6.4-8.2)
[2021-10-17] MEDS ORDERED: POTASSIUM CL SA 10 MEQ TAB PO ONE (08:38)
[2021-10-17] MEDS: CEFEPIME 1 GM in NA CHLORIDE 0.9% 100 ML IV SCH ×2 (08:49→20:54)
[2021-10-17] MEDS: ENOXAPARIN 40 MG/0.4 ML SQ SCH (08:49)
[2021-10-17] MEDS: PANTOPRAZOLE 40MG TABLET PO SCH ×3 (08:50→16:54)
[2021-10-17] MEDS: METOPROLOL TARTRATE 5 MG/5 ML INJ IV PRN ×2 (08:50→16:21)
[2021-10-17] MEDS: LATANOPROST 0.005% 2.5ML OPTH OPTH SCH ×2 (09:00→21:00)
--- NOTE | 2021-10-17 12:27 | P.PN ---
Subjective Date of Service: 10/17/21 Chief Complaint: Respiratory failure Condition stable patient is anxious loculated parapneumonic effusion on the left side Review of Systems General: Weakness Respiratory: Shortness of Breath Physical Examination - Vital Signs Temperature: 98.4 F Blood Pressure: 144/96 Pulse: 116 Respirations: 32 Pulse Ox (%): 96 - Physical Exam General: Moderate distress Respiratory: Diminished (Diminished on the right side), Crackles/rales Cardiovascular: No edema - Studies Medications List Reviewed: Yes Assessment And Plan - Current Problems (Diagnosis) (1) Respiratory failure Current Visit: Yes Status: Acute Plan: Condition stable is better on a nonrebreather patient anxious repeat chest x-ray Qualifiers: Chronicity: acute (2) SARS-CoV-2 positive Current Visit: Yes Status: Acute Plan: Possible COVID-pneumonia reduce dose of steroid (3) Loculated pleural effusion Current Visit: Yes Status: Acute Plan: Patient is a loculated left-sided pleural effusion will need cardiothoracic surgery intervention. Labs on levofloxacin cefepime and vancomycin blood cultures negative no fever right now
[2021-10-17] MEDS: Levofloxacin 750mg IV 750 MG/150 ML BAG IV SCH (13:24)
[2021-10-17] MEDS: VANCOMYCIN 1 GM in NA CHLORIDE 0.9% 250 ML IVPB SCH (13:24)
--- NOTE | 2021-10-17 13:47 | ECHO ---
HEIGHT: 5 ft 9 in WEIGHT: 135 lb 0 oz DATE OF STUDY: 10/17/[address]: Jesse Montanez MD 2-DIMENSIONAL: YES M.MODE: YES DOPPLER: YES COLOR FLOW: YES TDS: NO PORTABLE: YES DEFINITY: NO BUBBLE STUDY: NO DIAGNOSIS: CONGESTIVE HEART FAILURE CARDIAC HISTORY: CATHERIZATION: NO SURGERY: NO PROSTHETIC VALVE: NO PACEMAKER: NO MEASUREMENTS (cm) DIASTOLIC (NORMALS) SYSTOLIC (NORMALS) IVSd 0.9 (0.6-1.2) LA Diam 3.6 (1.9-4.0) LVEF 58% LVIDd 4.2 (3.5-5.7) LVIDs 3.0 (2.0-3.5) %FS 30% LVPWd 0.9 (0.6-1.2) Ao Diam 3.1 (2.0-3.7) 2 DIMENSIONAL ASSESSMENT: RIGHT ATRIUM: NORMAL LEFT ATRIUM: NORMAL RIGHT VENTRICLE: NORMAL LEFT VENTRICLE: NORMAL TRICUSPID VALVE: NORMAL MITRAL VALVE: NORMAL PULMONIC VALVE: NORMAL AORTIC VALVE: NORMAL PERICARDIAL EFFUSION: NONE AORTIC ROOT: NORMAL LEFT VENTRICULAR WALL MOTION: NORMAL EJECTION FRACTION - DECREASED LEFT VENTRICULAR COMPLIANCE DOPPLER/COLOR FLOW: MILD TRICUSPID REGURGITATION - RIGHT VENTRICULAR SYSTOLIC PRESSURE 55mmHg. COMMENTS: ATRIAL FIBRILLATION. NORMAL EJECTION FRACTION. MILD TRICUSPID REGURGITATION. DECREASED LEFT VENTRICULAR COMPLIANCE. MODERATE PULMONARY HYPERTENSION 55mmHg. TECHNOLOGIST: BRENNAN DIAMOND
[2021-10-17 14:02] LABS: Hematocrit 44.9 % (39.6-49.0); MPV 8.9 fL (7.6-11.3); RBC Red Blood Cell Count 4.47 M/uL (4.33-5.43)
--- NOTE | 2021-10-17 14:49 | RAD REPORT ---
EXAM DESCRIPTION: [facility] Single View10/17/2021 2:17 pm CLINICAL HISTORY: Respiratory failure COMPARISON: October 16, 2021 FINDINGS: Mild worsening in diffuse right pulmonary opacities. Mild worsening in left pulmonary opacities. Moderate loculated left pleural effusion. Small moderate right pleural effusion suspected Cardiomegaly
[2021-10-17] MEDS: ACETAMINOPHEN 325 MG TABLET PO PRN ×2 (15:47→22:06)
[2021-10-17] MEDS: METHYLPREDNISOLONE 40 MG INJ IV SCH (16:54)
[2021-10-17] MEDS ORDERED: FUROSEMIDE 40 MG/4 ML VIAL IV ONE (17:00)
[2021-10-17] MEDS: FAMOTIDINE 20 MG TAB PO SCH (20:55)
[2021-10-17] MEDS: PROMETHAZINE INJ 25 MG/ML AMP IV PRN (21:38)
[2021-10-18] MEDS: METHYLPREDNISOLONE 40 MG INJ IV SCH ×2 (00:48→07:38)
[2021-10-18] MEDS: IPRATROPIUM BROM 0.5MG/2.5ML NEB SCH ×4 (01:35→19:58)
[2021-10-18] MEDS: LEVOTHYROXINE SOD 0.1 MG TAB PO SCH (06:37)
[2021-10-18] MEDS: PANTOPRAZOLE 40MG TABLET PO SCH ×3 (07:30→16:30)
[2021-10-18] MEDS: CEFEPIME 1 GM in NA CHLORIDE 0.9% 100 ML IV SCH ×2 (07:38→20:31)
[2021-10-18] MEDS: ENOXAPARIN 40 MG/0.4 ML SQ SCH (07:38)
[2021-10-18] MEDS: LATANOPROST 0.005% 2.5ML OPTH OPTH SCH ×2 (07:39→20:31)
[2021-10-18 08:16] LABS: ALT/SGPT 33 U/L (12-78); AST/SGOT 30 U/L (15-37); Albumin 1.9 g/dL (3.4-5.0); Alkaline Phosphatase 223 U/L (45-117); BUN Blood Urea Nitrogen 29 mg/dL (7-18); Bicarbonate 31 mmol/L (21-32); Bilirubin Total 0.6 mg/dL (0.2-1.0); Glucose Level 139 mg/dL (74-106); Magnesium 2.5 mg/dL (1.8-2.4); Phosphorus 2.7 mg/dL (2.5-4.9); Protein, Total 6.4 g/dL (6.4-8.2); Sodium Level 142 mmol/L (136-145)
--- NOTE | 2021-10-18 08:51 | RAD REPORT ---
EXAM DESCRIPTION: RAD - Chest Single View - 10/18/2021 5:57 am CLINICAL HISTORY: Respiratory failure Chest pain. COMPARISON: Chest Single View dated 10/17/2021; Chest Single View dated 10/16/2021; Chest Single View dated 10/14/2021; Chest Pa And Lat (2 Views) dated 09/22/2021 FINDINGS: Portable technique limits examination quality. Extensive pulmonary opacities are again seen, greater on the right, unchanged. Bilateral pleural effu sions are present, larger on the left also stable. The heart is mildly enlarged in size. IMPRESSION: Stable chest is noted since yesterday's examination.
--- NOTE | 2021-10-18 10:25 | P.PN ---
Date of Service: 10/17/21 Subjective Subjective: Initiated transfer. Possible VATS for multiloculated pleural effusion. Hypoxemia improving. Patient accepted by CT surgery at [facility]. Awaiting for acceptance by hospitalist team. Review of Systems 10-point ROS is otherwise unremarkable Physical Examination - Vital Signs reviewed - Physical Exam General: Alert, In no apparent distress, Oriented x3 Respiratory: Diminished, Expiratory wheezes, Rhonchi/gurgles Cardiovascular: Other (tachycardia no murmurs) Gastrointestinal: Normal bowel sounds, Soft and benign, Non-distended, No tenderness Musculoskeletal: No clubbing, No swelling, No tenderness Neurological: Sensation intact, Cranial nerves 3-12 intact Assessment & Plan - Problems (Diagnosis) (1) Pneumonia Onset Date: 04/21/18 Current Visit: No Status: Acute Qualifiers: Pneumonia type: due to COVID-19 virus Qualified Code(s): U07.1 - COVID-19; J12.82 - Pneumonia due to coronavirus disease 2018 (2) Atrial fibrillation Current Visit: No Status: Acute (3) History of coronary artery disease Current Visit: No Status: Acute (4) History of gastric surgery Current Visit: No Status: Acute (5) Hypothyroid Current Visit: No Status: Acute (6) Loculated pleural effusion Current Visit: Yes Status: Acute - Plan Continue with plan of care as mentioned below: 1. IV steroids 2. O2 per protocol 3. Pulmonary consultation appreciated 4. Monitor labs 5. Patient is unvaccinated 6. Continue with antibiotic therapy; 7. Echocardiogram with diastolic heart failure; diurese 8. Patient is a full code 9. Neb treatments 10. Arrange for transfer to tertiary care facility Discharge Plan: Home Plan to discharge in: Greater than 2 days - Advance Directives Does patient have a Living Will: No Does patient have a Durable POA for Healthcare: Yes - Code Status/Comfort Care Code Status Assessed: Yes Code Status: Full Code Critical Care: yes Time Spent Managing PTS Care (In Minutes): 35
[2021-10-18 11:42] LABS: Absolute Lymphocytes (CBC) 0.5 K/uL (0.7-4.9); Hematocrit 45.8 % (39.6-49.0); Lymphocytes % 1.1 % (15.3-44.8); MPV 8.9 fL (7.6-11.3); RBC Red Blood Cell Count 4.49 M/uL (4.33-5.43)
[2021-10-18 12:33] LABS: Blood Morphology Comment NOT SEEN (NOT SEEN); Hypersegmented Neutrophils PRESENT; Platelet Estimate ADEQ
[2021-10-18] MEDS: PROMETHAZINE INJ 25 MG/ML AMP IV PRN (12:48)
[2021-10-18] MEDS: VANCOMYCIN 1 GM in NA CHLORIDE 0.9% 250 ML IVPB SCH (12:48)
--- NOTE | 2021-10-18 12:51 | P.PN ---
Subjective Date of Service: 10/18/21 Chief Complaint: Respiratory failure Patient's condition is improving he is alert responsive cooperative eating and drinking still dyspneic pending transfer to tertiary care Review of Systems General: Weakness Respiratory: Cough, Shortness of Breath Physical Examination - Vital Signs Temperature: 97.8 F Blood Pressure: 137/73 Pulse: 98 Respirations: 28 Pulse Ox (%): 93 - Physical Exam General: Alert, Moderate distress Respiratory: Other (Diminished air entry at the left base) Cardiovascular: No edema, Normal S1 S2 - Studies Medications List Reviewed: Yes Assessment And Plan - Current Problems (Diagnosis) (1) Respiratory failure Current Visit: Yes Status: Acute Plan: Condition stable in ICU oxygen requirements have been declining Qualifiers: Chronicity: acute (2) SARS-CoV-2 positive Current Visit: Yes Status: Acute Plan: Possible COVID-pneumonia reduce dose of steroid (3) Loculated pleural effusion Current Visit: Yes Status: Acute Plan: Loculated pleural effusion White count is increased significantly to be secondary to steroids also has some infiltrates in the right lower lobe blood pressure is stable blood cultures are so far negative DC steroids no fever
[2021-10-18] MEDS: FAMOTIDINE 20 MG TAB PO SCH (20:31)
[2021-10-19] MEDS: IPRATROPIUM BROM 0.5MG/2.5ML NEB SCH ×3 (02:42→13:20)
[2021-10-19 05:01] LABS: Absolute Lymphocytes (CBC) 0.6 K/uL (0.7-4.9); Hematocrit 40.5 % (39.6-49.0); RBC Red Blood Cell Count 3.98 M/uL (4.33-5.43)
[2021-10-19 05:17] LABS: ALT/SGPT 48 U/L (12-78); AST/SGOT 34 U/L (15-37); Albumin 1.8 g/dL (3.4-5.0); Alkaline Phosphatase 138 U/L (45-117); BUN Blood Urea Nitrogen 27 mg/dL (7-18); Bicarbonate 29 mmol/L (21-32); Bilirubin Total 0.6 mg/dL (0.2-1.0); Glucose Level 122 mg/dL (74-106); Magnesium 2.4 mg/dL (1.8-2.4); NT PRO-BNP 1725 pg/mL (<450); Potassium 3.7 mmol/L (3.5-5.1); Protein, Total 6.1 g/dL (6.4-8.2); Sodium Level 144 mmol/L (136-145)
[2021-10-19] MEDS: LEVOTHYROXINE SOD 0.1 MG TAB PO SCH (05:47)
[2021-10-19 05:59] VITALS: BMI 19.9
[2021-10-19] MEDS ORDERED: VANCOMYCIN 1 GM in NA CHLORIDE 0.9% 250 ML IVPB SCH (06:00)
[2021-10-19] MEDS: ENOXAPARIN 40 MG/0.4 ML SQ SCH (08:15)
[2021-10-19] MEDS: LATANOPROST 0.005% 2.5ML OPTH OPTH SCH (08:15)
[2021-10-19] MEDS: CEFEPIME 1 GM in NA CHLORIDE 0.9% 100 ML IV SCH (08:16)
[2021-10-19] MEDS: PANTOPRAZOLE 40MG TABLET PO SCH (08:16)
[2021-10-19] MEDS ORDERED: POTASSIUM CL SA 10 MEQ TAB PO ONE (09:00)
[2021-10-19] MEDS ORDERED: FUROSEMIDE 40 MG/4 ML VIAL IV ONE (09:05)
[2021-10-19 11:02] VITALS: TEMP 96.2
[2021-10-19 13:49] VITALS: O2SAT 93
[2021-10-19 15:40] VITALS: BP 152/89
--- NOTE | 2021-10-19 23:03 | P.DS ---
Discharge Date: 10/19/21 Disposition: TRANSFER TO [facility] Discharge Condition: GOOD Reason for Admission: Respiratory failure - Problems (1) Pneumonia Onset Date: 04/21/18 Status: Acute Qualifiers: Pneumonia type: due to COVID-19 virus Qualified Code(s): U07.1 - COVID-19; J12.82 - Pneumonia due to coronavirus disease 2019 (2) Atrial fibrillation Status: Acute (3) History of coronary artery disease Status: Acute (4) History of gastric surgery Status: Acute (5) Hypothyroid Status: Acute (6) Loculated pleural effusion Status: Acute Brief History of Present Illness: Patient is an 86-year-old male patient with medical history significant for hypothyroidism, hyperlipidemia, who was evaluated in emergency room for episode of persistent chest discomfort and shortness of breath. He also had cough. Shortness of breath episode started about 2 days ago and he had cough productive of sputum. He denied overt fever or chills, rigor, nausea, vomiting episode. Because of persistent chest discomfort and breathing he had a CTA pulmonary to rule out pulmonary embolism done which was negative. His chest x-ray was overtly concerning for left lung field opacification so he was admitted for inpatient antibiotic therapy and care. Hospital Course: Patient with dyspnea. Patient with multi-loculated effusion. Patient with COVID pneumonia with superimposed bacterial pneumonia. Patient also with CHF. Patient is stable for transfer to [facility] Vital Signs/Physical Exam: Temp Pulse Resp BP Pulse Ox 96.2 F L 122 H 32 H 152/89 H 90 L 10/19/21 08:00 10/19/21 15:00 10/19/21 15:00 10/19/21 15:00 10/19/21 15:00 General: Alert, In no apparent distress, Oriented x3 Laboratory Data at Discharge: WBC 30.2 K/uL (4.3-10.9) H* D 10/19/21 04:42 Hgb 13.2 g/dL (13.6-17.9) L 10/19/21 04:42 Hct 40.5 % (39.6-49.0) 10/19/21 04:42 Plt Count 302 K/uL (152-406) 10/19/21 04:42 PT 15.4 SECONDS (9.5-12.5) H 10/14/21 09:40 INR 1.30 10/14/21 09:40 Sodium 144 mmol/L (136-145) 10/19/21 04:42 Potassium 3.7 mmol/L (3.5-5.1) 10/19/21 04:42 BUN 27 mg/dL (7-18) H 10/19/21 04:42 Creatinine 0.73 mg/dL (0.55-1.3) 10/19/21 04:42 Glucose 122 mg/dL (74-106) H 10/19/21 04:42 Phosphorus 2.7 mg/dL (2.5-4.9) 10/18/21 07:35 Magnesium 2.4 mg/dL (1.8-2.4) 10/19/21 04:42 Total Bilirubin 0.6 mg/dL (0.2-1.0) 10/19/21 04:42 AST 34 U/L (15-37) 10/19/21 04:42 ALT 48 U/L (12-78) 10/19/21 04:42 Alkaline Phosphatase 138 U/L (45-117) H 10/19/21 04:42 Home Medications: Omeprazole [Prilosec] 40 mg PO BID 04/19/18 Calcium Carbonate [Tums] 200 mg PO PRN 10/15/21 Famotidine [Pepcid*] 80 mg PO BEDTIME 10/15/21 Latanoprost [Xelpros] 1 drop EACH EYE BID 10/15/21 Levothyroxine [Synthroid] 100 mcg PO [id number] 10/15/21 Perfect Amino 5,000 mg PO DAILY 10/16/21 Physician Discharge Instructions: Transfer to [facility] Followup: Unknown,U [Primary Care Provider] - Time spent managing pt's care (in minutes): 35
== END 2021-10-19 16:05 | disposition short-term general hospital (02) | DRG 177 ==
LOC: ER 09:21 → ERHOLD 10:57 → 4TH 10-15 13:10 → 3RD-ICU 10-16 13:00
PROVIDERS: ADMIT Internal Medicine Nephrology; ATTEND Internal Medicine Nephrology
DX: U07.1 COVID-19 (principal); J12.82 Pneumonia due to coronavirus disease 2019; J96.01 Acute respiratory failure with hypoxia; J15.9 Unspecified bacterial pneumonia; J91.8 Pleural effusion in other conditions classified elsewhere; I50.32 Chronic diastolic (congestive) heart failure; I48.91 Unspecified atrial fibrillation; I25.10 Atherosclerotic heart disease of native coronary artery without angina pectoris; E03.9 Hypothyroidism, unspecified; E78.5 Hyperlipidemia, unspecified; I11.0 Hypertensive heart disease with heart failure; K21.9 Gastro-esophageal reflux disease without esophagitis
CPT/HCPCS: 36415; 71045; 71275; 76604; 77412; 80048; 80053; 80076; 80202; 81003; 82805; 82947; 83605; 83735; 83880; 84100; 84145; 84439; 84443; 84484; 85025; 85027; 85610; 87040; 90732; 93005; 93306; 94002; 94003; 94640; 94760; 96361; 96365; 96367; 96372; 96375; 99285; J0456; J0692; J1160; J1650; J1940; J2270; J2543; J2550; J2920; J2930; J3370; J3490; J7030; J7040; J7050; J7799; Q9967; U0003

== ENCOUNTER 2021-11-06 11:09 | Emergency (ER) | payer OTHER ==
--- OUTSIDE RECORDS SUMMARY | 2021-11-06 11:12 | XMS REPORT | Continuity of Care Document ---
:1935 Author Organization [facility] t Address [address] [place] [address] Care Team Providers Name Role Phone No Primary Care Physician Unavailable ZACH LEROY Attending Clinician Unavailable IVY Attending Clinician Unavailable JONH Attending Clinician Unavailable CHRISTY CALVILLO Attending Clinician Unavailable LAB90 Attending Clinician Unavailable Christy Calvillo MD Attending Clinician IVY Attending Clinician Unavailable Yeison BELTRAN Attending Clinician Unavailable ZACH LEROY Admitting Clinician Unavailable JONH Admitting Clinician Unavailable Payers Payer Name Policy Type Policy Number Effective Date Expiration Date S obed MEDICARE PART A [id number] 1998 AND B 00:00:00 MEDICARE A B [id number] 1998 00:00:00 [employer] INDEMNITY [id number] 2016 NON CONTR 00:00:00 MEDICARE-PART B 5 [id number] 2006 00:00:00 [employer]ETNA 2 [id number] 2020 00:00:00 Problems Condition Condition Condition Status [...] M ethodi nemia due nemia due 09-25 st to to 00:00: Hospita protein-ca protein-ca 00 l [place] malnutriti malnutriti on on Hypothyroi Hypothyroi Disease [...] Small Disease Active Methodi bowel bowel 09-21 st obstructio obstructio 00:00: Ho spita n n 00 l Bezoar Bezoar Disease Active Methodi 09-21 st 00:00: Hospita 00 l 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 3-25 [facility] 00:00: Hospita malnutriti malnutriti 00 l on on Status Status Disease Active 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 00 l revision revision surgery surgery GERD GERD Disease Active Methodi (gastroeso (gastroeso 5-17 st phageal phageal 00:00: Hospita reflux reflux 00 l disease) disease) Pharyngoes Pharyngoes Disease Active M ethodi ophageal ophageal 5-17 [address] dysphagia dysphagia 00:00: Hosp [facility] 00 l Status Status Disease Active Janine post post 517 Seybold laparoscop laparoscop 00:00: ic ic 00 fundoplica fundoplica tion tion Allergies, Adverse Reactions, Alerts Allergy Allergy Status Severity Reaction(s) Onset Inactive Treating Comm ents Source Name Type Date Date Clinician Ondanset Propensi Active Rash Janine mayela ty to 9- Seybold adverse 00:00: reaction 00 s Ondanset Propensi Active Nausea Only Per K elsey mayeal Hcl ty to 3-26 patient Seybold adverse 00:00: report reaction 00 s Ondanset Propensi Active GI Per Method i mayela Hcl ty to Intolerance 3-[address] adverse 00:00: report Hospita reaction 00 l s to drug Family History Family Member Diagnosis Comments Start Date Stop Date Source Natural sister COPD [facility] Natural son [facility] Natural father GI problems [facility] Maternal grandfather No Known Problems [facility] Maternal grandmother No Known Problems [facility] Natural mother Breast cancer [facility] Paternal grandfather No Known Problems [facility] Paternal grandmother No Known Problems [facility] Social History Social Habit Start Date Stop Date Quantity Comments Source Exposure to Not sure Janine dudley SARS-CoV-2 (event) Tobacco use and 2021-01-05 2021-01-05 Smokeless tobacco Ke brandoney Seybold exposure 00:00:00 00:00:00 non-user Cigarettes smoked 2019-09-26 2019-09-[address] current (pack per 00:00:00 00:00:00 Hospita l day) - Reported Cigarette 2019-09-26 2019-09-26 Uatsdin pack-years 00:00:00 00:00:00 Hospital Alcohol intake 2019-09-26 2019-09-26 Current Uatsdin 00:00:00 00:00:00 non-drinker of Hospital alcohol (finding) Sex Ass[birth year] At [birth year] Janine baxter 00:00:00 00:00:00 Smoking Status Start Date Stop Date Source Tobacco smoking consumption unknown Never smoked tobacco Janine Gillis old Former smoker 2019-09-26 00:00:00 2019-09-26 00:00:00 [facility] Medications Ordered Filled Start Stop Current Ordering Indication Dosage Frequency Signature Comments Components Source Medication Medication Date Date Medication? Clinician (SIG) Name Name Levothyroxi 2020-06 Yes [id number] TAKE ONE Janine ne Sodium 1-15 TABLET BY Seybo ld 100 MCG 00:00: MOUTH oral Tablet 00 DAILY Levothyroxi 2020-06 Yes [id number] TAKE ONE Janine ne Sodium 1-15 TABLET BY Seybo ld 100 MCG 00:00: MOUTH oral Tablet 00 DAILY Cephalexin 2020-0 Yes Janine 500 MG oral 8-12 Seybold Capsule 00:00: 00 Cephalexin 2020-0 202- No Janine 500 MG oral 805-28 Seybold Capsule 00:00: 00:00 00 :00 Omeprazole [...] mouth 2 times daily Levothyroxi 2020-0 Yes [id number] 100ug Take 1 Janine ne Sodium 8-10 [...] Emulsion 00 EYE AT BEDTIME Lumigan Yes [id number] 1[drp] Place 1 K elsey 0.01 % 2-04 drop into Seybold ophthalmic 00:00: both eyes Solution 00 daily Lumigan Yes [id number] 1[drp] Place 1 K elsey 0.01 % 2-04 drop into Seybold ophthalmic 00:00: both eyes Solution 00 daily Lumigan Yes [id number] 1[drp] Place 1 K elsey 0.01 % [...] 0.004 % 19:55: Hospita 18 l promethazin 2020-0 Yes 12.5mg Take 1 Me thodi e 3-[address] (PHENERGAN) 00:00: (12.5 mg Ho spita 12.5 MG 00 total) by l tablet mouth as needed for nausea or vomiting (before with meals). calcium 2020-0 Yes 1{tbl} Q.[id number] Take 1 Methodi citrate-vit 3-[id number] mayer D2 00:00: 3D mouth 3 Hospita 250-100 00 (three) l mg-unit per times a tablet day. Immunizations Ordered Immunization Filled Immunization Date Status Commen ts Source Name Name Tdap- (Boostrix, 2019-05-24 Completed Janine bean Adacel) 00:00:00 Influenza Virus 2019-05-24 Completed Janine Se ybold Vaccine, age 6 months 00:00:00 and up Tdap- (Boostrix, 2019-05-24 Completed Janine S eybold Adacel) 00:00:00 Influenza Virus 2019-05-24 Completed Janine Se ybold Vaccine, age 6 months 00:00:00 and up Tdap- (Boostrix, 2019-05-24 Completed Janine S eybold Adacel) 00:00:00 Influenza Virus 2019-05-24 Completed Janine [...] Source BMI 2021-06-25 16:20:00 20.08 kg/m2 Janine S eybold Systolic blood pressure 2021-06-25 16:20:00 122 mm[Hg] Janine Seybold Diastolic blood 2021-06-25 16:20:00 60 mm[Hg] Kelse y Seybold pressure Heart rate 2021-06-25 16:20:00 60 /min Janine S eybold Body temperature 2021-06-25 16:20:00 36.5 Margaret Radha [...] eybold BMI 2021-03-06 19:17:00 20.82 kg/m2 Janine bean Systolic blood pressure 2021-02-21 16:34:00 127 mm[Hg] Diastolic blood 2021-02-21 16:34:00 80 mm[Hg] NPI:1 [id number] pressure Heart rate 2021-02-21 16:34:00 102 /min NPI:1528 [id number] Body temperature 2021-02-21 16:34:00 37.06 Margaret Respiratory rate 2021-02-21 16:34:00 16 /min Body height 2021-02-21 16:34:00 175.3 cm NPI:1528 [id number] Body weight 2021-02-21 16:34:00 63.776 kg NPI:1528 [id number] BMI 2021-02-21 16:34:00 20.76 kg/m2 NPI:1528 [id number] Oxygen saturation in 2021-02-21 16:34:00 97 /min Arterial blood by Pulse oximetry Respiratory rate 2021-02-07 18:58:00 18 /min Body height 2021-02-07 18:58:00 175.3 cm NPI:1528 [id number] Body weight 2021-02-07 18:58:00 64.411 kg NPI:1528 [id number] BMI 2021-02-07 18:58:00 20.97 kg/m2 NPI:1528 [id number] Systolic blood pressure 2021-02-07 18:58:00 137 mm[Hg] Diastolic blood 2021-02-07 18:58:00 85 mm[Hg] NPI:1 [id number] pressure Heart rate 2021-02-07 18:58:00 93 /min NPI:1528 [id number] Body temperature 2021-02-07 18:58:00 36.72 Margaret Procedures Procedure Date / Time Performed Performing Clinician Sawyer e CT ABDOMEN PELVIS WO 2021-02-14 15:45:00 Kenneth Guzman NPI:[id number] CONTRAST FL BARIUM SWALLOW W 2021-02-07 17:00:00 Kenneth Guzman NPI:[id number] ESOPHAGUS FUNCTION Plan of Care Planned Activity Planned Date Details Comments Source Future Scheduled Test COVID-19 VACCINE (1) [facility] [code = COVID-19 VACCINE (1)] Future Scheduled Test SHINGLES VACCINES (#1) [facility] [code = SHINGLES VACCINES (#1)] Future Scheduled Test 65+ PNEUMOCOCCAL Me [facility] VACCINE (1 of 1 - PPSV23) [code = 65+ PNEUMOCOCCAL VACCINE (1 of 1 - PPSV23)] Future Scheduled Test INFLUENZA VACCINE [code [facility] = INFLUENZA VACCINE] Encounters Start End Encounter Admission Attending Care Care Encounter Source Date/Time Date/Time Type Type Clinicians Facility Department ID 2021-10-19 Outpatient [facility] [id number] NPI:[id number] 18:15:59 [id number] 2021-10-17 Inpatient [facility] [id number] NPI:[id number] 16:53:16 NIVIA pearson [id number] 2021-05-17 [facility] [id number] NPI:[id number] 01:03:29 KENNETH [id number] 2021-10-19 2021-11-04 [facility] [id number] Memoria 17:30:00 01:14:00 karlos RIVERA [facility] l 2021-06-25 2021-06-25 Office Kee CALVILLO [id number] Janine 10:30:00 10:30:00 Visit OANH Souza [id number] Se sahil [id number] 2021-05-28 2021-05-28 Outpatient LAB90 JANINE GARIBAY [id number] Janine 12:15:00 12:15:00 Seybol d 2021-05-28 2021-05-28 Office Kee Calvillo [id number] Janine 11:15:00 12:00:00 Visit Oanh Souza [id number] Se sahil Somogyi [id number] 2021-03-09 2021-03-09 Outpatient KARLI, JANINE GARIBAY [id number] Janine 00:00:00 00:00:00 OANH Gillisol d 2021-03-06 2021-03-06 Outpatient LAB90 JANINE GARIBAY [id number] Janine 15:15:00 15:15:00 Seybol d 2021-03-06 2021-03-06 Office KarliKee arevalo [id number] Janine 14:14:32 14:44:32 Visit Oanh Souza [id number] Se sahil Dixonelbert [id number] 2021-02-21 2021-02-21 Office Bankramona, UTP [facility] [id number] NPI:152 11:30:37 11:56:07 Visit [facility] MED [id number] PLAZA 1 [id number] 2021-02-15 2021-02-15 Outpatient BANKI, MHSE MHSE [id number] MH 09:12:00 14:53:00 [facility] 2021-02-14 2021-02-14 Outpatient BANKI, MHSE MHSE [id number] MH 10:02:00 23:59:00 [facility] 2021-02-08 2021-02-08 EXT [facility] OP Banki, EXT MSRDP [id number] NPI:[id number] 00:00:00 00:00:00 [facility] [id number] 2021-02-07 2021-02-07 Outpatient BANKI, MHSE MHSE [id number] MH 11:32:00 23:59:00 [facility] 2021-02-07 2021-02-07 Office Banki, UTP MH [id number] NPI:152 13:50:26 15:04:33 Visit [facility] MED [id number] PLAZA 1 [id number] 2021-02-06 2021-02-06 EXT [facility] OP Banki, EXT MSRDP [id number] NPI:152 00:00:00 00:00:00 [facility] LOCATION [id number] 2021-02-02 2021-02-02 Outpatient LAB90 JANINE GARIBAY [id number] Janine 14:15:00 14:15:00 Seybol d 2021-02-02 2021-02-02 Outpatient JANINE CALVILLO [id number] Janine 13:30:00 13:30:00 OANH Seybol d 2021-01-18 2021-01-18 Outpatient JANINE BELTRAN [id number] Janine 00:00:00 00:00:00 MUNADIR Gililso ld 2021-01-05 2021-01-05 Outpatient LAB90 JANINE GARIBAY [id number] Janine 11:40:00 11:40:00 Seybol d 2021-01-05 2021-01-05 Outpatient JANINE CALVILLO [id number] Janine 10:30:00 10:30:00 OANH Seybol d Results This patient has no known results.
[2021-11-06 12:07] LABS: Absolute Lymphocytes (CBC) 0.8 K/uL (0.7-4.9); Hematocrit 39.3 % (39.6-49.0); Lymphocytes % 8.2 % (15.3-44.8); MPV 8.8 fL (7.6-11.3)
[2021-11-06 12:28] LABS: Albumin 2.2 g/dL (3.4-5.0); Bilirubin Direct 0.1 mg/dL (0-0.2); Bilirubin Total 0.3 mg/dL (0.2-1.0); Magnesium 2.2 mg/dL (1.8-2.4); Troponin High Sensitivity 8.5 pg/mL (<58.9)
--- NOTE | 2021-11-06 12:36 | RAD REPORT ---
EXAM DESCRIPTION: RAD - Chest Single View - 11/06/2021 12:30 pm CLINICAL HISTORY: diminished lung sounds Chest pain. COMPARISON: Chest Single View dated 10/18/2021; Chest Single View dated 10/17/2021; Chest Single View dated 10/16/2021; Chest Single View dated 10/14/2021; CHEST PA AND LAT 2 VIEW dated 08/16/2004 FINDINGS: Portable technique limits examination quality. Mild left and moderate right pulmonary opacities are present, moderately improved since comparative s tudy. This may represent asymmetric pulmonary edema. The heart is moderately enlarged. Small bilatera l pleural effusions, larger on the left.
[2021-11-06 12:59] LABS: Protime INR 1.57
[2021-11-06] MEDS ORDERED: AZITHROMYCIN 250 MG TAB ONE (14:38)
[2021-11-06] MEDS ORDERED: CEFTRIAXONE 1000 MG/VIAL ONE (14:38)
--- NOTE | 2021-11-06 15:00 | ER ---
Nurse's Notes [facility] Name: Abhay Morocho Age: 86 yrs Sex: Male : 1935 Arrival Date: 11/06/2021 Time: 11:19 Bed 18 Private MD: Diagnosis: Coronavirus infection, unspecified Presentation: 11/06 11:26 Chief complaint: Patient states: shortness of breath. recently hospitalized for PNA melgar related to covid. Coronavirus screen: Vaccine status: Patient reports receiving the 2nd dose of the covid vaccine. Ebola Screen: Patient denies travel to an Ebola-affected area in the 21 days before illness onset. Initial Sepsis Screen: Does the patient meet any 2 criteria? No. Patient's initial sepsis screen is negative. Does the patient have a suspected source of infection? No. Patient's initial sepsis screen is negative. Risk Assessment: Do you want to hurt yourself or someone else? Patient reports no desire to harm self or others. Onset of symptoms was November 06, 2021. 11:26 Method Of Arrival: EMS: [facility] melgar 11: Acuity: ALMAS 3 melgar Triage Assessment: 11:29 General: Appears in no apparent distress. Behavior is calm, cooperative. Pain: Denies melgar pain. 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 - Social history:: Smoking status: Patient denies any tobacco usage or history of. Screenin:30 Abuse screen: Denies threats or abuse. Denies injuries from another. Nutritional melgar screening: No deficits noted. Tuberculosis screening: No symptoms or risk factors identified. Fall Risk IV access (20 points). Assessment: 11:30 General: Appears in no apparent distress. Behavior is calm, cooperative. Pain: Denies melgar pain. Respiratory: Reports shortness of breath Breath sounds are diminished in left upper lobe, left lower lobe, right lower lobe, left posterior upper lobe, left posterior lower lobe and right posterior lower lobe. Vital Signs: 11: BP 102 / 88; Pulse 87; Resp 97; Temp 97.9(O); Pulse Ox 97% on NC; Weight 61.23 kg; melgar Height 5 ft. 9 in. (175.26 cm); 13:08 BP 115 / 87; Pulse 84; Resp 16; Pulse Ox 94% on R/A; melgar 11:26 Body Mass Index 19.94 (61.23 kg, 175.26 cm) melgar ED Course: 11:19 Patient arrived in ED. bd 11:19 Teodoro Hough PA is PHCP. [facility] 11:19 Cody Loya MD is Attending Physician. [facility] 11:26 Kay Boucher, HIMANSHU is Primary Nurse. melgar 11:29 Triage completed. melgar 11:29 Arm band placed on. melgar 11:30 Patient has correct armband on for positive identification. Placed in gown. Bed in low melgar position. Call light in reach. Side rails up X 1. 11:30 No provider procedures requiring assistance completed. melgar 12:06 Inserted saline lock: 20 gauge in right antecubital area, using aseptic technique. melgar 12:07 Influenza Screen (a \\T\\ B) Sent. melgar 12:07 SARS-COV-2 RT PCR (Document "Date of Onset" if Symptomatic) Sent. melgar 12:07 Blood Culture Adult (2) Sent. melgar 12:07 Lactate Sent. melgar 12:07 Procalcitonin Sent. melgar 12:32 Chest Single View XRAY In Process Unspecified. EDMS Administered Medications: 14:14 CANCELLED (Duplicate Order): AZITHromycin 1 grams PO once [facility] 14:43 Drug: Rocephin (cefTRIAXone) 1 grams Route: IV; Rate: calculated rate; Site: right melgar antecubital; 14:43 Drug: AZITHromycin 500 mg Route: PO; melgar 14:43 Follow up: Response: No adverse reaction melgar Outcome: 15:00 Discharge ordered by . [facility] 15:46 Patient left the ED. iw Signatures: Dispatcher [employer] EDMS Stephanie Moser Joel, PA PA jmm Williams, Irene, RN RN Kay Boucher RN RN melgar
--- NOTE | 2021-11-06 15:00 | EDPHYS ---
Physician Documentation [facility] Name: Abhay Morocho Age: 86 yrs Sex: Male : 1935 Arrival Date: 11/06/2021 Time: 11:19 Bed 18 Private MD: ED Physician Cody Loya HPI: 11/06 11:25 This 86 yrs old Male presents to ER via EMS with complaints of shortness of breath. m 11:25 The patient has shortness of breath at rest. This is an 86 year old male that presents jmm to the ED with complaints of fatigue. senior care sent the patient to ER for evaluation due to decreased left sided lung sounds. Patient was recently discharged for complincations of covid. Patient had a chest tube inserted during his stay. . 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 - Social history:: Smoking status: Patient denies any tobacco usage or history of. ROS: 11:25 Cardiovascular: Negative for chest pain, palpitations, and edema. jmm 11:25 Constitutional: Positive for fatigue. 11:25 Respiratory: Positive for cough, shortness of breath. 11:25 All other systems are negative. Exam: 11:25 Constitutional: This is a well developed, well nourished patient who is awake, alert, jmm and in no acute distress. Head/Face: atraumatic. Eyes: EOMI, no conjunctival erythema appreciated ENT: Moist Mucus Membranes Neck: Trachea midline, Supple Chest/axilla: Normal chest wall appearance and motion. Cardiovascular: Regular rate and rhythm. No edema appreciated Respiratory: Normal respirations, no respiratory distress appreciated Abdomen/GI: Non distended, soft Back: Normal ROM Skin: General appearance color normal MS/ Extremity: Moves all extremities, no obvious deformities appreciated, no edema noted to the lower extremities Neuro: Awake and alert Psych: Behavior is normal, Mood is normal, Patient is cooperative and pleasant Vital Signs: 11:26 BP 102 / 88; Pulse 87; Resp 97; Temp 97.9(O); Pulse Ox 97% on NC; Weight 61.23 kg; melgar Height 5 ft. 9 in. (175.26 cm); 13:08 BP 115 / 87; Pulse 84; Resp 16; Pulse Ox 94% on R/A; melgar 11:26 Body Mass Index 19.94 (61.23 kg, 175.26 cm) melgar MDM: 11:32 Patient medically screened. [facility] 14:53 Data reviewed: vital signs, nurses notes. Counseling: I had a detailed discussion with venus the patient and/or guardian regarding: the historical points, exam findings, and any diagnostic results supporting the discharge/admit diagnosis, radiology results, the need for outpatient follow up, to return to the emergency department if symptoms worsen or persist or if there are any questions or concerns that arise at home. 11/06 11:32 Order name: Basic Metabolic Panel; Complete Time: 12:55 [facility] 11/06 11:32 Order name: CBC with Diff; Complete Time: 12:12 [facility] 11/06 11:32 Order name: LFT's; Complete Time: 12:55 [facility] 11/06 11:32 Order name: Magnesium; Complete Time: 12:55 [facility] 11/06 11:32 Order name: NT PRO-BNP; Complete Time: 12:55 [facility] 11/06 11:32 Order name: PT-INR; Complete Time: 13:01 [facility] 11/06 11:25 Order name: Chest Single View XRAY; Complete Time: 12:55 [facility] 11/06 11:32 Order name: Troponin HS; Complete Time: 12:55 [facility] 11/06 11:33 Order name: Procalcitonin; Complete Time: 12:55 [facility] 11/06 11:33 Order name: Lactate; Complete Time: 12:55 [facility] 11/06 11:33 Order name: Blood Culture Adult (2) [facility] 11/06 11:38 Order name: SARS-COV-2 RT PCR (Document "Date of Onset" if Symptomatic); Complete Time: [facility] 13:24 11/06 11:39 Order name: Influenza Screen (a \\T\\ B); Complete Time: 12:55 [facility] 11/06 11:32 Order name: EKG; Complete Time: 11:33 [facility] 11/06 11:32 Order name: Cardiac monitoring; Complete Time: 13:07 [facility] 11/06 11:32 Order name: EKG - Nurse/Tech; Complete Time: 12:07 [facility] 11/06 11:32 Order name: IV Saline Lock; Complete Time: 12:07 [facility] 11/06 11:32 Order name: Labs collected and sent; Complete Time: 12:07 [facility] 11/06 11:32 Order name: O2 Per Protocol; Complete Time: 12:07 [facility] 11/06 11:32 Order name: O2 Sat Monitoring; Complete Time: 12:07 [facility] Administered Medications: 14:14 CANCELLED (Duplicate Order): AZITHromycin 1 grams PO once [facility] 14:43 Drug: Rocephin (cefTRIAXone) 1 grams Route: IV; Rate: calculated rate; Site: right melgar antecubital; 14:43 Drug: AZITHromycin 500 mg Route: PO; 14:43 Follow up: Response: No adverse reaction melgar Disposition: 15:47 Co-signature as Attending Physician, Cody Loya MD I agree with the assessment and kdr plan of care. Disposition Summary: 11/06/21 15:00 Discharge Ordered Location: Home [facility] Condition: Stable [facility] Diagnosis - Pneumonia [facility] - Coronavirus infection, unspecified [facility] Followup: [facility] - With: Private Physician - When: 2 - 3 days - Reason: Recheck today's complaints, Continuance of care, Re-evaluation by your physician Discharge Instructions: - Discharge Summary Sheet [facility] - COVID-19 [facility] Forms: - Medication Reconciliation Form [facility] - Thank You Letter [facility] - Antibiotic Education [facility] - Prescription Opioid Use [facility] Prescriptions: - Zithromax Z-Korey 250 mg Oral Tablet - take 1 tablet by ORAL route as directed for 5 days Day 1 - take two (2) tablets [facility] one time. Day 2, 3, 4 , 5 take one (1) tablet once daily.; 6 tablet; Refills: 0, Product Selection Permitted Signatures: Dispatcher [employer] Cody Carlson MD MD kdr Mickail, Joel, PA PA [facility] Mirna-StageKay mancera RN [facility] Corrections: (The following items were deleted from the chart) 14:14 14:14 AZITHromycin 1 grams PO once ordered. [facility]
[2021-11-06 17:10] VITALS: TEMP 97.9
[2021-11-06 17:11] VITALS: BP 115/87; O2SAT 94
--- NOTE | 2021-11-07 07:32 | EKG ---
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
== END 2021-11-06 15:46 | disposition home or self-care (01) ==
LOC: ER 11:09
DX: U07.1 COVID-19 (principal); J18.9 Pneumonia, unspecified organism; E07.9 Disorder of thyroid, unspecified; K21.9 Gastro-esophageal reflux disease without esophagitis; Z85.828 Personal history of other malignant neoplasm of skin; Z88.8 Allergy status to other drugs, medicaments and biological substances
CPT/HCPCS: 93005; 87040 ×2; 85025; 80048; 36415; 83735; 85610; 80076; 83605; 84484; 84145; 83880; 87804 ×2; 71045; 96374; 99284; U0003